=== PATIENT | male | born 1955 | race African-American/Black ===

== ENCOUNTER 2016-04-25 10:08 | Emergency (ER) | payer MEDICARE ==
[~2016-04-25] VITALS: Ht 175.3 cm; Wt 68.0 kg
[2016-04-25 10:33] VITALS: BP 171/108
[2016-04-25] MEDS ORDERED: DIPHTH,PERTUSS(ACELL),TET TOX 0.5 ML DISP.SYRIN. VAX IM ONE (11:00)
[2016-04-25] MEDS ORDERED: HYDROCODONE/APAP 5/325MG TABLET. PO ONE (11:00)
[2016-04-25] MEDS ORDERED: SULF1TAB24 PO (11:19)
[2016-04-25] MEDS ORDERED: HYDR-971 PO (11:19)
--- NOTE | 2016-04-25 11:20 | PHYS DOC ---
Past Medical History Past Medical History: A-Fib, Hypertension Additional Past Medical Histor: renal failure, ACID Past Surgical History: Other Additional Past Surgical Histo: Left knee orthoscopic, left shoulder surgery, left eye removed, Alcohol Use: None Drug Use: None Adult General Chief Complaint Chief Complaint: FOOT INJURY PAIN HPI HPI Patient is a 61 year old male with history of hypertension and A. fib who presents with right heel pain and infection after stepping on a cufflink 2 days ago without shoes on. Patient states he did remove the cufflink from the right foot. Patient denies any history of diabetes. Review of Systems Review of Systems Constitutional: Denies fever or chills [] Eyes: Denies change in visual acuity, redness, or eye pain [] Musculoskeletal: Denies back pain or joint pain [] Integument: Right heel pain Neurologic: Denies headache, focal weakness or sensory changes [] Endocrine: Denies polyuria or polydipsia [] Current Medications Current Medications Current Medications Medications (Trade) Dose Ordered Sig/Martina Start Time Stop Time Status Last Admin Dose Admin Acetaminophen/ Hydrocodone Bitart (Lortab 5/325) 1 tab 1X ONCE 04/25/16 11:00 04/25/16 11:01 UNV Diphtheria/ Tetanus/Acell Pertussis (Boostrix) 0.5 ml ONCE ONCE 04/25/16 11:00 04/25/16 11:01 UNV Physical Exam Physical Exam Constitutional: Well developed, well nourished, no acute distress, non-toxic appearance. [] Skin: Right lateral heel with the open wound approximately 2 x 2 centimeters the wound is erythematous, very tender to palpate and warm to touch Back: No tenderness, no CVA tenderness. [] Extremities: No tenderness, no cyanosis, no clubbing, ROM intact, no edema. [] Neurologic: Alert and oriented X 3, normal motor function, normal sensory function, no focal deficits noted. [] Psychologic: Affect normal, judgement normal, mood normal. [] Current Patient Data Vital Signs Vital Signs Date Time Temp Pulse Resp B/P Pulse Ox O2 Delivery O2 Flow Rate FiO2 04/25/16 10:33 98.1 83 16 171/108 92 Room Air 98.1 EKG EKG [] Radiology/Procedures Radiology/Procedures [] Course & Med Decision Making Course & Med Decision Making Pertinent Labs and Imaging studies reviewed. (See chart for details) Patient is in the ED with an infected puncture wound on the right heel after stepping on a cufflink 2 days ago. He was given tetanus in the ED and discharged with Bactrim for 10 days. Instructed to keep the area clean and dry. His BP was also elevated at 171/108 with a heart rate of 83. Patient denies any cardiac or neurological symptoms right now. He states he has history of hypertension. Recommended if he takes his blood pressure when he gets home if he is still elevated to contact his own doctor. Dragon Disclaimer Dragon Disclaimer This electronic medical record was generated, in whole or in part, using a voice recognition dictation system. Departure Departure Impression: Primary Impression: Puncture wound of right foot Additional Impressions: Right foot infection Accelerated hypertension Disposition: 01 HOME, SELF-CARE Condition: STABLE Referrals: NO PCP (PCP) Follow-up with your own doctor in 1-2 weeks. Patient Instructions: Puncture Wound, Skin Infections Additional Instructions: You were seen for infected puncture wound on the right foot. Keep the area clean and dry. Soak it in Epsom salts twice a day. Complete your antibiotics. Your blood pressure was also elevated at 171/108, retake it at home. If it is still high contact your primary care doctor. Make sure you are taking your blood pressure medicines. Follow-up with your doctor in one week. Come back to the emergency room if symptoms worsen. Scripts Sulfamethoxazole/Trimethoprim (Bactrim Ds Tablet)1 Each Tablet1 Tab PO BID #20 TAB Prov:CRISTIAN MAYNARD APRN 04/25/16 Hydrocodone/Apap 5-325 ([place] 5-325 Tablet)1 Each Tablet1-2 Tab PO Q4-6HRS #20 TAB Prov:CRISTIAN MAYNARD APRN 04/25/16 Problem Qualifiers Primary Impression: Puncture wound of right foot Encounter type: initial encounter Qualified Code: S91.331A - Puncture wound without foreign body, right foot, initial encounter CRISTIAN MAYNARD APRN Apr 25, 2016 11:20
== END 2016-04-25 11:55 | disposition home or self-care (01) ==
LOC: ER 10:08
DX: S91.331A Puncture wound without foreign body, right foot, initial encounter (principal); I48.91 Unspecified atrial fibrillation; I10 Essential (primary) hypertension; L08.9 Local infection of the skin and subcutaneous tissue, unspecified; Z95.810 Presence of automatic (implantable) cardiac defibrillator; W22.8XXA Striking against or struck by other objects, initial encounter; Y93.89 Activity, other specified; Y92.89 Other specified places as the place of occurrence of the external cause; Y99.8 Other external cause status
CPT/HCPCS: 99284

== ENCOUNTER 2016-09-21 10:40 | Inpatient (IN) | payer MEDICARE ==
[~2016-09-21] VITALS: Ht 175.3 cm; Wt 65.1 kg
[2016-09-21] VITALS (9 sets, daily range): BP systolic 93–167; BP diastolic 56–85
[~2016-09-21 10:40] MED LIST: HYDR-971 PO; SULF1TAB24 PO
[2016-09-21 11:46] LABS: BASO % 0 % (0-3); EOS % 0 % (0-3); HEMATOCRIT 36.3 % (39.0-53.0); HEMOGLOBIN 11.4 g/dL (13.0-17.5); LYMPH % 3 % (24-48); MEAN CORPUSCULAR HEMOGLOBIN 27 pg (25-35); MEAN CORPUSCULAR HGB CONC 31 g/dL (31-37); MEAN CORPUSCULAR VOLUME 87 fL (79-100); MONO % 7 % (0-9); NEUT % 89 % (31-73); PLATELET COUNT 252 x10^3/uL (140-400); RED BLOOD COUNT 4.16 x10^6/uL (4.30-5.70); RED CELL DISTRIBUTION WIDTH 15.6 % (11.5-14.5); WHITE BLOOD COUNT 30.7 x10^3/uL (4.0-11.0)
--- NOTE | 2016-09-21 11:58 | RAD ---
Indication weakness. A single view of the chest was obtained. Comparison is made to an examination almost 10 years earlier. The heart and pulmonary vessels appear unremarkable. A wire, apparently attached to a battery pack is noted in the left hemithorax. The battery pack is only partially visualized. Clinical correlation advised. Heart size is normal. The pulmonary vasculature is normal. An acute parenchymal infiltrate in the chest is not seen. There are occasional calcified left hilar lymph nodes. IMPRESSION: No acute finding apparent in the chest
[2016-09-21 12:05] LABS: CALCIUM 10.4 mg/dL (8.5-10.1); CREATININE 4.9 mg/dL (0.7-1.3); GFR 14.7; POTASSIUM 4.2 mmol/L (3.5-5.1)
[2016-09-21 12:11] LABS: ALBUMIN 2.5 g/dL (3.4-5.0); ALBUMIN/GLOBULIN RATIO 0.4 (1.0-1.7); MAGNESIUM 2.1 mg/dL (1.8-2.4); TOTAL BILIRUBIN 0.4 mg/dL (0.2-1.0); TOTAL PROTEIN 8.3 g/dL (6.4-8.2)
[2016-09-21 12:19] LABS: CKMB MASS 4.5 ng/mL (0.0-3.6); CREATINE KINASE 419 U/L (39-308)
--- NOTE | 2016-09-21 12:45 | RAD ---
Indication change in mental status. Axial noncontrast images through the head were obtained. Note is made of a previous examination 12/03/2007. The calvarium appears unremarkable. The visualized paranasal sinuses appear normal. There are multiple areas of increased density, compatible with areas of calcification, seen in the subcutaneous soft tissues. There is no subdural or epidural hematoma. There is no mass or midline shift. No hemorrhage is seen. No acute finding is apparent. IMPRESSION: No acute finding seen in the head PQRS Compliance Statement: One or more of the following individualized dose reduction techniques were utilized for this examination: 1. Automated exposure control 2. Adjustment of the mA and/or kV according to patient size 3. Use of iterative reconstruction technique
--- NOTE | 2016-09-21 13:05 | PDOC2 ---
CARDIAC CONSULT DATE OF CONSULT Date of Consult DATE: 09/21/16 TIME: 12:59 REASON FOR CONSULT Reason for Consult: elevated troponin REFERRING PHYSICIAN Referring Physician: Xiao Roger APRN SOURCE Source: Chart review HISTORY OF PRESENT ILLNESS HISTORY OF PRESENT ILLNESS 61 year old male seen in the ER after an "episode" at dialysis. Events unclear as patient without recall and no family present. Patient answers questions in one to two words after a sternal rub to arouse him. Troponin 0.6 in the setting of ESRD with Cr of 4.9 and a WBC of 30K. EKG - SR with LVH, T wave inversion laterally, biphasic P wave in multiple leads but no acute changes. Reason for Visit: elevated tropoinin PAST MEDICAL HISTORY Cardiovascular: AFIB, HTN, Other (defibrillator) Renal/: Chronic renal failure (with HD) PAST SURGICAL HISTORY Past Surgical History: Pacemaker (? - device in left lower chest), Other (left knee; left shoulder; left eye enucleation; AV fistula on right ) FAMILY HISTORY Family History: Family History Unknown SOCIAL HISTORY Social History unknown ALLERGIES ALLERGIES: Coded Allergies: No Known Drug Allergies (Unverified , 04/25/16) ROS Review of System unobtainable due to mental status PHYSICAL EXAM General: Cooperative, Other (lethargic;difficult to arouse but oriented when arouses) HEENT: Atraumatic Lungs: Other (decreased anteriorly with poor inspiration ) Heart: Normal S1, Normal S2, No murmurs, Other (tele:SR) Abdomen: Soft Extremities: No edema, Normal pulses Skin: No rashes Neuro: Other (lethargic; difficult to arouse) Psych/Mental Status: Mood NL MUSCULOSKELETAL: Osteoarthritic changes both hands VITALS VITALS Vital Signs Date Time Temp Pulse Resp B/P (MAP) Pulse Ox O2 Delivery O2 Flow Rate FiO2 09/21/16 10:57 98.2 93 18 96/58 (71) 99 Room Air 98.2 LABS Lab: Laboratory Tests Test 09/21/16 10:50 White Blood Count 30.7 x10^3/uL (4.0-11.0) Red Blood Count 4.16 x10^6/uL (4.30-5.70) Hemoglobin 11.4 g/dL (13.0-17.5) Hematocrit 36.3 % (39.0-53.0) Mean Corpuscular Volume 87 fL (79-100) Mean Corpuscular Hemoglobin 27 pg (25-35) Mean Corpuscular Hemoglobin Concent 31 g/dL (31-37) Red Cell Distribution Width 15.6 % (11.5-14.5) Platelet Count 252 x10^3/uL (140-400) Neutrophils (%) (Auto) 89 % (31-73) Lymphocytes (%) (Auto) 3 % (24-48) Monocytes (%) (Auto) 7 % (0-9) Eosinophils (%) (Auto) 0 % (0-3) Basophils (%) (Auto) 0 % (0-3) Neutrophils # (Auto) 27.5 x10^3uL (1.8-7.7) Lymphocytes # (Auto) 1.0 x10^3/uL (1.0-4.8) Monocytes # (Auto) 2.2 x10^3/uL (0.0-1.1) Eosinophils # (Auto) 0.0 x10^3/uL (0.0-0.7) Basophils # (Auto) 0.0 x10^3/uL (0.0-0.2) Sodium Level 142 mmol/L (136-145) Potassium Level 4.2 mmol/L (3.5-5.1) Chloride Level 99 mmol/L (98-107) Carbon Dioxide Level 27 mmol/L (21-32) Anion Gap 16 (6-14) Blood Urea Nitrogen 27 mg/dL (8-26) Creatinine 4.9 mg/dL (0.7-1.3) Estimated GFR (Cockcroft-Gault) 14.7 BUN/Creatinine Ratio 6 (6-20) Glucose Level 143 mg/dL (70-99) Lactic Acid Level 3.4 mmol/L (0.4-2.0) Calcium Level 10.4 mg/dL (8.5-10.1) Magnesium Level 2.1 mg/dL (1.8-2.4) Total Bilirubin 0.4 mg/dL (0.2-1.0) Aspartate Amino Transf (AST/SGOT) 33 U/L (15-37) Alanine Aminotransferase (ALT/SGPT) 16 U/L (16-63) Alkaline Phosphatase 124 U/L (46-116) Creatine Kinase 419 U/L (39-308) Creatine Kinase MB (Mass) 4.5 ng/mL (0.0-3.6) Creatine Kinase MB Relative Index 1.1 % (0-4) Troponin I Quantitative 0.620 ng/mL (0.000-0.055) XV-Pdq-[id number]-Type Natriuretic Peptide > 80722 pg/mL (0-124) Total Protein 8.3 g/dL (6.4-8.2) Albumin 2.5 g/dL (3.4-5.0) Albumin/Globulin Ratio 0.4 (1.0-1.7) IMAGES IMAGES CXR: A single view of the chest was obtained. Comparison is made to an examination almost 10 years earlier. The heart and pulmonary vessels appear unremarkable. A wire, apparently attached to a battery pack is noted in the left hemithorax. The battery pack is only partially visualized. Clinical correlation advised. Heart size is normal. The pulmonary vasculature is normal. An acute parenchymal infiltrate in the chest is not seen. There are occasional calcified left hilar lymph nodes. IMPRESSION: No acute finding apparent in the chest CT head: Axial noncontrast images through the head were obtained. Note is made of a previous examination 12/03/2007. The calvarium appears unremarkable. The visualized paranasal sinuses appear normal. There are multiple areas of increased density, compatible with areas of calcification, seen in the subcutaneous soft tissues. There is no subdural or epidural hematoma. There is no mass or midline shift. No hemorrhage is seen. No acute finding is apparent. IMPRESSION: No acute finding seen in the head EKG EKG EKG - SR with LVH, T wave inversion laterally, biphasic P wave in multiple leads but no acute changes. ASSESSMENT/PLAN ASSESSMENT/PLAN 1. sepsis WBC ~ 30K per primary service and ID 2. NSTEMI, type II in the setting of sepsis and ESRD - continue serial markers no acute changes in EKG presumed previous care @ [facility] - records requested echo to evaluate LVEF and assess for valvular disease 3. device in left lateral hemithorax ? -- not with usual appearance of ICD or PPM records requested from [facility] 4. hypotension may need vasopressors 5. ESRD with HD per nephrology 6. mental status changes ? sepsis related Problems: ABIOLA YADAV APRN September 21, 2016 13:05
--- NOTE | 2016-09-21 13:56 | EKG ---
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
--- NOTE | 2016-09-21 14:55 | RAD ---
Indication scrotal pain. Grayscale color Doppler and spectral imaging was performed. Examination was targeted to the scrotum. The right testicle measures approximately 3.5 x 2.4 x 1.8 cm. No mass is seen. No definite arterial flow is seen in the testicle. Some minimal venous flow was seen. No definite epididymal mass was seen although there was diminished flow to the epididymis similar to the testicle. There was a right varicocele. There was no significant hydrocele. The left testicle measures 3.3 x 2.5 x 2 cm and, similar to the contralateral right testicle shows no significant arterial flow with only minimal venous flow. No mass is seen. The epididymis does not appear enlarged but similar to the testicle itself demonstrated very little flow. IMPRESSION: Significantly diminished blood flow to both testicles. This likely reflects a systemic process. Clinical correlation advised. Right varicocele
[2016-09-21] MEDS ORDERED: ONDANSETRON PF 4 MG/2 ML VIAL. IV PRN ×2 (15:00→16:52)
[2016-09-21] MEDS ORDERED: MORPHINE SULFATE 2 MG/ML DISP.SYRIN. IV PRN (15:00)
[2016-09-21 15:02] LABS: PLT ESTIMATE ADEQUATE (ADEQUATE)
[2016-09-21 15:04] LABS: ANISOCYTOSIS SLIGHT; POIKILOCYTOSIS SLIGHT; POLYCHROMASIA SLIGHT; TARGET CELLS FEW
--- NOTE | 2016-09-21 15:53 | PHYS DOC ---
Past Medical History Past Medical History: A-Fib, Hypertension Additional Past Medical Histor: renal failure, ACID Past Surgical History: No Surgical History, Other Additional Past Surgical Histo: Left knee orthoscopic, left shoulder surgery, left eye removed, Alcohol Use: None Drug Use: None Adult General Chief Complaint Chief Complaint: DIALYSIS PROBLEM HPI HPI Patient is a 61 year old male with history of hypertension and A. fib who presents today from dialysis. Patient is a very poor historian. He states he had "an episode" in dialysis. Patient would not describe this episode. He is complaining of penile wound and pain that he has had for a couple days. Patient denies any fever. Denies any chest pain or shortness of breath. He is alert and oriented 3. Review of Systems Review of Systems Constitutional: Denies fever or chills [] Eyes: Denies change in visual acuity, redness, or eye pain [] HENT: Denies nasal congestion or sore throat [] Respiratory: Denies cough or shortness of breath [] Cardiovascular: No additional information not addressed in HPI [] GI: Denies abdominal pain, nausea, vomiting, bloody stools or diarrhea [] : Penile wound Musculoskeletal: Denies back pain or joint pain [] Integument: Denies rash or skin lesions [] Neurologic: Denies headache, focal weakness or sensory changes [] Endocrine: Denies polyuria or polydipsia [] Allergies Allergies Allergies Coded Allergies Type Severity Reaction Last Updated Verified No Known Drug Allergies 04/25/16 No Physical Exam Physical Exam Constitutional: Well developed, well nourished, no acute distress, non-toxic appearance. [] HENT: Normocephalic, atraumatic, bilateral external ears normal, oropharynx moist, no oral exudates, nose normal. [] Eyes: PERRLA, EOMI, conjunctiva normal, no discharge. [] Neck: Normal range of motion, no tenderness, supple, no stridor. [] Cardiovascular:Heart rate regular rhythm, no murmur [] Lungs & Thorax: Bilateral breath sounds clear to auscultation [] Abdomen: Bowel sounds normal, soft, no tenderness, no masses, no pulsatile masses. [] Skin: Warm, dry, no erythema, no rash. [] penile exam was difficult because patient is guarding it. Penile shaft appears to have non draining wound. Back: No tenderness, no CVA tenderness. [] Extremities: No tenderness, no cyanosis, no clubbing, ROM intact, no edema. [] Neurologic: Alert and oriented X 3, normal motor function, normal sensory function, no focal deficits noted. [] Psychologic: Affect normal, judgement normal, mood normal. [] Current Patient Data Vital Signs Vital Signs Date Time Temp Pulse Resp B/P (MAP) Pulse Ox O2 Delivery O2 Flow Rate FiO2 09/21/16 13:29 97 19 91/39 (56) 100 Room Air 09/21/16 10:57 98.2 98.2 Lab Values Laboratory Tests Test 09/21/16 10:50 White Blood Count 30.7 x10^3/uL (4.0-11.0) H Red Blood Count 4.16 x10^6/uL (4.30-5.70) L Hemoglobin 11.4 g/dL (13.0-17.5) L Hematocrit 36.3 % (39.0-53.0) L Mean Corpuscular Volume 87 fL (79-100) Mean Corpuscular Hemoglobin 27 pg (25-35) Mean Corpuscular Hemoglobin Concent 31 g/dL (31-37) Red Cell Distribution Width 15.6 % (11.5-14.5) H Platelet Count 252 x10^3/uL (140-400) Neutrophils (%) (Auto) 89 % (31-73) H Lymphocytes (%) (Auto) 3 % (24-48) L Monocytes (%) (Auto) 7 % (0-9) Eosinophils (%) (Auto) 0 % (0-3) Basophils (%) (Auto) 0 % (0-3) Neutrophils # (Auto) 27.5 x10^3uL (1.8-7.7) H Lymphocytes # (Auto) 1.0 x10^3/uL (1.0-4.8) Monocytes # (Auto) 2.2 x10^3/uL (0.0-1.1) H Eosinophils # (Auto) 0.0 x10^3/uL (0.0-0.7) Basophils # (Auto) 0.0 x10^3/uL (0.0-0.2) Segmented Neutrophils % 84 % (35-66) H Band Neutrophils % 9 % (0-9) Monocytes % 7 % (0-10) Platelet Estimate Adequate (ADEQUATE) Polychromasia Slight Poikilocytosis Slight Anisocytosis Slight Target Cells Few Sodium Level 142 mmol/L (136-145) Potassium Level 4.2 mmol/L (3.5-5.1) Chloride Level 99 mmol/L (98-107) Carbon Dioxide Level 27 mmol/L (21-32) Anion Gap 16 (6-14) H Blood Urea Nitrogen 27 mg/dL (8-26) H Creatinine 4.9 mg/dL (0.7-1.3) H Estimated GFR (Cockcroft-Gault) 14.7 BUN/Creatinine Ratio 6 (6-20) Glucose Level 143 mg/dL (70-99) H Lactic Acid Level 3.4 mmol/L (0.4-2.0) H Calcium Level 10.4 mg/dL (8.5-10.1) H Magnesium Level 2.1 mg/dL (1.8-2.4) Total Bilirubin 0.4 mg/dL (0.2-1.0) Aspartate Amino Transferase (AST) 33 U/L (15-37) Alanine Aminotransferase (ALT) 16 U/L (16-63) Alkaline Phosphatase 124 U/L (46-116) H Creatine Kinase 419 U/L (39-308) H Creatine Kinase MB (Mass) 4.5 ng/mL (0.0-3.6) H Creatine Kinase MB Relative Index 1.1 % (0-4) Troponin I Quantitative 0.620 ng/mL (0.000-0.055) NV-Wir-B-Type Natriuretic Peptide > 20136 pg/mL (0-124) H Total Protein 8.3 g/dL (6.4-8.2) H Albumin 2.5 g/dL (3.4-5.0) L Albumin/Globulin Ratio 0.4 (1.0-1.7) L Thyroid Stimulating Hormone (TSH) 1.281 uIU/mL (0.358-3.74) Laboratory Tests 09/21/16 10:50 Laboratory Tests 09/21/16 10:50 EKG EKG [] Radiology/Procedures Radiology/Procedures [] Course & Med Decision Making Course & Med Decision Making Pertinent Labs and Imaging studies reviewed. (See chart for details) This is a 61-year-old male patient who presents today from dialysis for having "an episode". Patient would not describe this episode. Patient is an alert and oriented. He is complaining of pain in the wound. On exam he does have a penile wound. Chest x-ray and CT of the head are negative for any acute findings. EKG interpreted by Dr. Geiger sinus rhythm, inverted T waves in lead V5, heart rate 89 CBC with a WBC of 30.1 no bands, CMP with creatinine of 4.9, BUN 27, lactic acid 3.4, troponin 0.620. We could not start patient on IV fluids for sepsis protocol because he has renal failure, blood cultures were ordered as well as prolactin. We will let renal decided on IV fluids Patient is afebrile. Consulted with Mora Donaldson's PA who came to the ED to see patient. Consulted with Dr. Haney who accepted patient for admission who requested we consult Amanda and start him on antibiotics. Cipro was ordered. Consult was placed for Dr. Patel to see patient Consult placed for nephrology Dragon Disclaimer Dragon Disclaimer This electronic medical record was generated, in whole or in part, using a voice recognition dictation system. Departure Departure Impression: Primary Impression: Sepsis Additional Impressions: Acute electrocardiogram changes Open wound of penis Disposition: ADMITTED INPATIENT Admitting Physician: Lena Haney Condition: STABLE Referrals: NO PCP (PCP) Problem Qualifiers Primary Impression: Sepsis Sepsis type: sepsis due to unspecified organism Qualified Codes: A41.9 - Sepsis, unspecified organism Additional Impressions: Open wound of penis Encounter type: initial encounter Qualified Codes: S31.20XA - Unspecified open wound of penis, initial encounter CRISTIAN MAYNARD BOSTON CUTTER September 21, 2016 15:53
[2016-09-21] MEDS ORDERED: MAGNESIUM SULFATE 2GM 50 ML IV PRN (16:00)
--- NOTE | 2016-09-21 16:06 | PDOC2 ---
CONSULT Date of Consult Date of Consult DATE: 09/21/16 TIME: 15:59 Reason for Consult Reason for Consult: ESRD Referring Physician Referring Physician: Dr Epstein Identification/Chief Complaint Chief Complaint Hypotension Problems: Source Source: Chart review, Patient History of Present Illness Reason for Visit: as dictated Past Medical History Cardiovascular: AFIB, HTN, Other (defibrillator) Renal/: Chronic renal failure (with HD) Past Surgical History Past Surgical History: Pacemaker (? - device in left lower chest), Other (left knee; left shoulder; left eye enucleation; AV fistula on right ) Family History Family History: Family History Unknown Social History Lives: Alone Current Problem List Problem List Problems Medical Problems: (1) Sepsis Status: Acute Current Medications Current Medications Current Medications Ondansetron HCl (Zofran) 4 mg PRN Q8HRS PRN IV NAUSEA/VOMITING; Start 09/21/16 at 15:00; Stop 09/22/16 at 14:59 Morphine Sulfate 2 mg PRN Q2HR PRN IV PAIN; Start 09/21/16 at 15:00; Stop at 14:59 Ciprofloxacin Lactate 200 ml @ 200 mls/hr Q24H IV ; Start 09/21/16 at 15:00 Active Scripts Active Bactrim Ds Tablet (Sulfamethoxazole/Trimethoprim) 1 Each Tablet 1 Tab PO BID [place] 5-325 Tablet (Acetaminophen/Hydrocodone Bitart) 1 Each Tablet 1-2 Tab PO Q4-6HRS Allergies Allergies: Coded Allergies: No Known Drug Allergies (Unverified , 04/25/16) ROS Review of System does not answer Qs reliably Physical Exam Physical Exam General Appearance: Awake but not fully Alert Oriented x 0-1 In no Distress Eyes: Conjunctiva Normal; LEft eye prosthetic, EN: No EN Drainage Mucous Memb. dryish Neck: no JVD min JVP Supple no Thyromegaly CVS: S1 S2 + Murmur No Gallop No Rub no Edema Resp: no Rales no Rhonchi no Acc. Muscle use GI: BAS +ve NO Bruit Non Tender Non Distended : no CVA tenderness; no Suprapubic Tenderness SKIN: no Rashes Breast Exam deferred; ? Eschar at tip of penis Mu.Sk: Adequate ROM + Muscle Atrophy Heme: Unable to palpate Obvious LAD no palp Splenomegaly NEURO: dec Strength damien in lower ext vs Cranial Nerves unable to be assessed due to lack of co-operation Psych: ? Depressed no Active hallucination Vital Signs Vital Signs Date Time Temp Pulse Resp B/P (MAP) Pulse Ox O2 Delivery O2 Flow Rate FiO2 09/21/16 13:29 97 19 91/39 (56) 100 Room Air 09/21/16 10:57 98.2 98.2 Assessment & Plan ESRD: Current FLuid and E-lyte status does not necessitate emergent need for Dialysis. Will re-evaluate for Dialysis in am and continue on MWF schedule. Anemia: no Epogen ordere for hgb > 11 Transfuse with next HD as needed. HypoTN OA: Current BP meds reviewed. See orders for changes. Currently Normotensive; May need IVF bolus prn; ECHO Pending Bone & Mineral: follopw phos and reassess need to change binder regimen ^ed Steve - suspect due to recent HD ? Sepsis +/- shock - IVF as needed ^ed lactic Acid - IVF prn then Pressors Discussed Plan of Care and prognosis etc. at length with family. Labs Labs Laboratory Tests Test 09/21/16 10:50 White Blood Count 30.7 x10^3/uL (4.0-11.0) Red Blood Count 4.16 x10^6/uL (4.30-5.70) Hemoglobin 11.4 g/dL (13.0-17.5) Hematocrit 36.3 % (39.0-53.0) Mean Corpuscular Volume 87 fL (79-100) Mean Corpuscular Hemoglobin 27 pg (25-35) Mean Corpuscular Hemoglobin Concent 31 g/dL (31-37) Red Cell Distribution Width 15.6 % (11.5-14.5) Platelet Count 252 x10^3/uL (140-400) Neutrophils (%) (Auto) 89 % (31-73) Lymphocytes (%) (Auto) 3 % (24-48) Monocytes (%) (Auto) 7 % (0-9) Eosinophils (%) (Auto) 0 % (0-3) Basophils (%) (Auto) 0 % (0-3) Neutrophils # (Auto) 27.5 x10^3uL (1.8-7.7) Lymphocytes # (Auto) 1.0 x10^3/uL (1.0-4.8) Monocytes # (Auto) 2.2 x10^3/uL (0.0-1.1) Eosinophils # (Auto) 0.0 x10^3/uL (0.0-0.7) Basophils # (Auto) 0.0 x10^3/uL (0.0-0.2) Segmented Neutrophils % 84 % (35-66) Band Neutrophils % 9 % (0-9) Monocytes % 7 % (0-10) Platelet Estimate Adequate (ADEQUATE) Polychromasia Slight Poikilocytosis Slight Anisocytosis Slight Target Cells Few Sodium Level 142 mmol/L (136-145) Potassium Level 4.2 mmol/L (3.5-5.1) Chloride Level 99 mmol/L (98-107) Carbon Dioxide Level 27 mmol/L (21-32) Anion Gap 16 (6-14) Blood Urea Nitrogen 27 mg/dL (8-26) Creatinine 4.9 mg/dL (0.7-1.3) Estimated GFR (Cockcroft-Gault) 14.7 BUN/Creatinine Ratio 6 (6-20) Glucose Level 143 mg/dL (70-99) Lactic Acid Level 3.4 mmol/L (0.4-2.0) Calcium Level 10.4 mg/dL (8.5-10.1) Magnesium Level 2.1 mg/dL (1.8-2.4) Total Bilirubin 0.4 mg/dL (0.2-1.0) Aspartate Amino Transf (AST/SGOT) 33 U/L (15-37) Alanine Aminotransferase (ALT/SGPT) 16 U/L (16-63) Alkaline Phosphatase 124 U/L (46-116) Creatine Kinase 419 U/L (39-308) Creatine Kinase MB (Mass) 4.5 ng/mL (0.0-3.6) Creatine Kinase MB Relative Index 1.1 % (0-4) Troponin I Quantitative 0.620 ng/mL (0.000-0.055) GG-Rmp-R-Type Natriuretic Peptide > 83365 pg/mL (0-124) Total Protein 8.3 g/dL (6.4-8.2) Albumin 2.5 g/dL (3.4-5.0) Albumin/Globulin Ratio 0.4 (1.0-1.7) Laboratory Tests Test 09/21/16 10:50 White Blood Count 30.7 x10^3/uL (4.0-11.0) Red Blood Count 4.16 x10^6/uL (4.30-5.70) Hemoglobin 11.4 g/dL (13.0-17.5) Hematocrit 36.3 % (39.0-53.0) Mean Corpuscular Volume 87 fL (79-100) Mean Corpuscular Hemoglobin 27 pg (25-35) Mean Corpuscular Hemoglobin Concent 31 g/dL (31-37) Red Cell Distribution Width 15.6 % (11.5-14.5) Platelet Count 252 x10^3/uL (140-400) Neutrophils (%) (Auto) 89 % (31-73) Lymphocytes (%) (Auto) 3 % (24-48) Monocytes (%) (Auto) 7 % (0-9) Eosinophils (%) (Auto) 0 % (0-3) Basophils (%) (Auto) 0 % (0-3) Neutrophils # (Auto) 27.5 x10^3uL (1.8-7.7) Lymphocytes # (Auto) 1.0 x10^3/uL (1.0-4.8) Monocytes # (Auto) 2.2 x10^3/uL (0.0-1.1) Eosinophils # (Auto) 0.0 x10^3/uL (0.0-0.7) Basophils # (Auto) 0.0 x10^3/uL (0.0-0.2) Segmented Neutrophils % 84 % (35-66) Band Neutrophils % 9 % (0-9) Monocytes % 7 % (0-10) Platelet Estimate Adequate (ADEQUATE) Polychromasia Slight Poikilocytosis Slight Anisocytosis Slight Target Cells Few Sodium Level 142 mmol/L (136-145) Potassium Level 4.2 mmol/L (3.5-5.1) Chloride Level 99 mmol/L (98-107) Carbon Dioxide Level 27 mmol/L (21-32) Anion Gap 16 (6-14) Blood Urea Nitrogen 27 mg/dL (8-26) Creatinine 4.9 mg/dL (0.7-1.3) Estimated GFR (Cockcroft-Gault) 14.7 BUN/Creatinine Ratio 6 (6-20) Glucose Level 143 mg/dL (70-99) Lactic Acid Level 3.4 mmol/L (0.4-2.0) Calcium Level 10.4 mg/dL (8.5-10.1) Magnesium Level 2.1 mg/dL (1.8-2.4) Total Bilirubin 0.4 mg/dL (0.2-1.0) Aspartate Amino Transf (AST/SGOT) 33 U/L (15-37) Alanine Aminotransferase (ALT/SGPT) 16 U/L (16-63) Alkaline Phosphatase 124 U/L (46-116) Creatine Kinase 419 U/L (39-308) Creatine Kinase MB (Mass) 4.5 ng/mL (0.0-3.6) Creatine Kinase MB Relative Index 1.1 % (0-4) Troponin I Quantitative 0.620 ng/mL (0.000-0.055) TV-Iru-P-Type Natriuretic Peptide > 71877 pg/mL (0-124) Total Protein 8.3 g/dL (6.4-8.2) Albumin 2.5 g/dL (3.4-5.0) Albumin/Globulin Ratio 0.4 (1.0-1.7) Images Images IMPRESSION: Significantly diminished blood flow to both testicles. This likely reflects a systemic process. Clinical correlation advised. Right varicocele SHELLY ESTEBAN MD September 21, 2016 16:06
--- NOTE | 2016-09-21 16:42 | CARD ---
APPROVED REPORT EXAM: Two-dimensional and M-mode echocardiogram with Doppler and color Doppler. Other Information Quality : GoodHR: 88bpm INDICATION NSTEMI 2D DIMENSIONS RVDd2.4 (2.9-3.5cm)Left Atrium(2D)3.2 (1.6-4.0cm) IVSd1.5 (0.7-1.1cm)Aortic Root(2D)3.2 (2.0-3.7cm) LVDd4.2 (3.9-5.9cm)LVOT Diameter2.3 (1.8-2.4cm) PWd1.5 (0.7-1.1cm)LVDs2.7 (2.5-4.0cm) FS (%) 34.9 %SV49.9 ml Aortic Valve AoV Peak Gabriel.193.4cm/sAoV VTI38.9cm AO Peak GR.15.0mmHgLVOT Peak Gabriel.61.9cm/s AO Mean GR.8mmHgAVA (VMAX)1.29cm2 Mitral Valve MV E Peak Gr.7mmHgMV E Mean Gr.3mmHg Pulmonary Valve PV Peak Vzbuilhk86.4cm/s Tricuspid Valve TR P. Lhcmspiy186sv/sTR Peak Gr.54mmHg Pulmonary Vein S1 Dxbokmon27.8cm/sD2 Mhslkffe58.5cm/s PVa [id number] LEFT VENTRICLE The left ventricle is normal size. There is mild to moderate concentric left ventricular hypertrophy. Left ventricle systolic function is low normal. The Ejection Fraction is estimated at 50%. Pulmonary venous flow is consistent with stage II diastolic dysfunction. No left ventricle thrombus noted on t his study. RIGHT VENTRICLE The right ventricle is normal size. There is normal right ventricular wall thickness. The right ventr icular systolic function is normal. ATRIA The left atrium is mildly dilated. The right atrium size is normal. The interatrial septum is intact with no evidence for an atrial septal defect or patent foramen ovale as noted on 2-D or Doppler imagi ng. AORTIC VALVE The aortic valve is mildly The aortic valve is trileaflet. Doppler and Color Flow revealed no signifi cant aortic regurgitation. There is no significant aortic valvular stenosis. MITRAL VALVE Mitral annular calcification is moderate. The mitral valve leaflets are calcified. There is no eviden ce of mitral valve prolapse. There is no mitral valve stenosis. Doppler and Color Flow revealed trace mitral regurgitation. TRICUSPID VALVE Doppler and Color Flow revealed moderate tricuspid regurgitation. The pulmonary artery systolic press ure is estimated at 50 mmHg. There is moderate pulmonary hypertension. PULMONIC VALVE Doppler and Color Flow revealed no pulmonic valvular regurgitation. There is no pulmonic valvular vishnu nosis. GREAT VESSELS The aortic root is normal in size. The ascending aorta is normal in size. The pulmonary artery is nor mal. The IVC is normal in size and collapses >50% with inspiration. PERICARDIAL EFFUSION There is no evidence of significant pericardial effusion. Critical Notification Critical Value: No <Conclusion> The left ventricle is normal size. Left ventricle systolic function is low normal. The Ejection Fraction is estimated at 50%. There is mild to moderate concentric left ventricular hypertrophy. There is no significant aortic valvular stenosis. Doppler and Color Flow revealed no significant aortic regurgitation. Doppler and Color Flow revealed trace mitral regurgitation. Doppler and Color Flow revealed moderate tricuspid regurgitation. The pulmonary artery systolic pressure is estimated at 50 mmHg. There is moderate pulmonary hypertension.
[2016-09-21] MEDS ORDERED: HYDROcodone/APAP 5/325MG 1 TAB TABLET PO PRN (17:00)
[2016-09-21] MEDS ORDERED: ACETAMINOPHEN 325 MG TABLET. PO PRN (17:00)
--- NOTE | 2016-09-21 17:02 | PDOC1 ---
History and Physical Date of Admission Date of Admission DATE: 09/21/16 TIME: 16:55 Identification/Chief Complaint Chief Complaint syncope while in HD Problems: Source Source: Caregiver, Chart review History of Present Illness History of Present Illness 61 y.o AA male, no family at bedside, cannot provide a hx to me today, BUt admitted bec of sepsis with hypotension Syncopized apparently in HD, further details scant. LAbs show WBC 30, no fevers hgb 11, platelets ok, BNP 35K, has a wound on penis that is very tender to inspect and that is mostly the most response I got from him, VS: BP lowish side, Trop 0.6 in the background of ESRD, CRea 4.9, K ok, bicarb ok. EKG I have personally reviewed shows inverted T waves, lactate 3.4. I did ask ER mid level provider to check scrotal sono since pt very tender there and possibly involve urology Past Medical History Cardiovascular: AFIB, HTN, Other (defibrillator) Renal/: Chronic renal failure (with HD) Past Surgical History Past Surgical History: Pacemaker (? - device in left lower chest), Other (left knee; left shoulder; left eye enucleation; AV fistula on right ) Family History Family History: Family History Unknown Social History Smoke: No ALCOHOL: none Drugs: None Current Problem List Problem List Problems Medical Problems: (1) Acute electrocardiogram changes Status: Acute (2) Open wound of penis Status: Acute (3) Sepsis Status: Acute Problems: Current Medications Current Medications Current Medications Ondansetron HCl (Zofran) 4 mg PRN Q8HRS PRN IV NAUSEA/VOMITING; Start 09/21/16 at 15:00; Stop 09/22/16 at 14:59 Morphine Sulfate 2 mg PRN Q2HR PRN IV PAIN; Start 09/21/16 at 15:00; Stop at 14:59 Ciprofloxacin Lactate 200 ml @ 200 mls/hr Q24H IV ; Start 09/21/16 at 15:00 Magnesium Sulfate/ Dextrose 50 ml @ 25 mls/hr PRN DAILY PRN IV for Mag < 1.7 on am labs; Start 09/21/16 at 16:00 Sodium Chloride 500 ml @ 0 mls/hr QID PRN IV map < 65; Start 09/21/16 at 16:15 Active Scripts Active Bactrim Ds Tablet (Sulfamethoxazole/Trimethoprim) 1 Each Tablet 1 Tab PO BID [place] 5-325 Tablet (Acetaminophen/Hydrocodone Bitart) 1 Each Tablet 1-2 Tab PO Q4-6HRS Allergies Allergies: Coded Allergies: No Known Drug Allergies (Unverified , 04/25/16) ROS Review of System unable to obtain, minimally cooperative Physical Exam General: No acute distress HEENT: Atraumatic, PERRLA, EOMI, Mucous membr. moist/pink Lungs: Clear to auscultation, Normal air movement Heart: S1S2, RRR, no thrills, no rubs, no gallops Cardiovascular: S1, S2 Breasts: Normal, Rt breast nml w/o mass, Lt breast nml w/o mass, Nipples normal Abdomen: Normal bowel sounds, Soft, No tenderness, No hepatosplenomegaly, No masses Male Genitals Exam: normal genitalia, normal prostate PELVIC: Nml ext genitalia Extremities: Other (R AV fistula with palpable bruit, good pulses peripherally) Skin: No rashes, No breakdown, No significant lesion Psych/Mental Status: Mental status NL Vitals Vitals Vital Signs Date Time Temp Pulse Resp B/P (MAP) Pulse Ox O2 Delivery O2 Flow Rate FiO2 09/21/16 13:29 97 19 91/39 (56) 100 Room Air 09/21/16 10:57 98.2 98.2 Labs Labs Laboratory Tests Test 09/21/16 10:50 White Blood Count 30.7 x10^3/uL (4.0-11.0) Red Blood Count 4.16 x10^6/uL (4.30-5.70) Hemoglobin 11.4 g/dL (13.0-17.5) Hematocrit 36.3 % (39.0-53.0) Mean Corpuscular Volume 87 fL (79-100) Mean Corpuscular Hemoglobin 27 pg (25-35) Mean Corpuscular Hemoglobin Concent 31 g/dL (31-37) Red Cell Distribution Width 15.6 % (11.5-14.5) Platelet Count 252 x10^3/uL (140-400) Neutrophils (%) (Auto) 89 % (31-73) Lymphocytes (%) (Auto) 3 % (24-48) Monocytes (%) (Auto) 7 % (0-9) Eosinophils (%) (Auto) 0 % (0-3) Basophils (%) (Auto) 0 % (0-3) Neutrophils # (Auto) 27.5 x10^3uL (1.8-7.7) Lymphocytes # (Auto) 1.0 x10^3/uL (1.0-4.8) Monocytes # (Auto) 2.2 x10^3/uL (0.0-1.1) Eosinophils # (Auto) 0.0 x10^3/uL (0.0-0.7) Basophils # (Auto) 0.0 x10^3/uL (0.0-0.2) Segmented Neutrophils % 84 % (35-66) Band Neutrophils % 9 % (0-9) Monocytes % 7 % (0-10) Platelet Estimate Adequate (ADEQUATE) Polychromasia Slight Poikilocytosis Slight Anisocytosis Slight Target Cells Few Sodium Level 142 mmol/L (136-145) Potassium Level 4.2 mmol/L (3.5-5.1) Chloride Level 99 mmol/L (98-107) Carbon Dioxide Level 27 mmol/L (21-32) Anion Gap 16 (6-14) Blood Urea Nitrogen 27 mg/dL (8-26) Creatinine 4.9 mg/dL (0.7-1.3) Estimated GFR (Cockcroft-Gault) 14.7 BUN/Creatinine Ratio 6 (6-20) Glucose Level 143 mg/dL (70-99) Lactic Acid Level 3.4 mmol/L (0.4-2.0) Calcium Level 10.4 mg/dL (8.5-10.1) Magnesium Level 2.1 mg/dL (1.8-2.4) Total Bilirubin 0.4 mg/dL (0.2-1.0) Aspartate Amino Transf (AST/SGOT) 33 U/L (15-37) Alanine Aminotransferase (ALT/SGPT) 16 U/L (16-63) Alkaline Phosphatase 124 U/L (46-116) Creatine Kinase 419 U/L (39-308) Creatine Kinase MB (Mass) 4.5 ng/mL (0.0-3.6) Creatine Kinase MB Relative Index 1.1 % (0-4) Troponin I Quantitative 0.620 ng/mL (0.000-0.055) TP-Nnq-G-Type Natriuretic Peptide > 62284 pg/mL (0-124) Total Protein 8.3 g/dL (6.4-8.2) Albumin 2.5 g/dL (3.4-5.0) Albumin/Globulin Ratio 0.4 (1.0-1.7) Thyroid Stimulating Hormone (TSH) 1.281 uIU/mL (0.358-3.74) Laboratory Tests Test 09/21/16 10:50 White Blood Count 30.7 x10^3/uL (4.0-11.0) Red Blood Count 4.16 x10^6/uL (4.30-5.70) Hemoglobin 11.4 g/dL (13.0-17.5) Hematocrit 36.3 % (39.0-53.0) Mean Corpuscular Volume 87 fL (79-100) Mean Corpuscular Hemoglobin 27 pg (25-35) Mean Corpuscular Hemoglobin Concent 31 g/dL (31-37) Red Cell Distribution Width 15.6 % (11.5-14.5) Platelet Count 252 x10^3/uL (140-400) Neutrophils (%) (Auto) 89 % (31-73) Lymphocytes (%) (Auto) 3 % (24-48) Monocytes (%) (Auto) 7 % (0-9) Eosinophils (%) (Auto) 0 % (0-3) Basophils (%) (Auto) 0 % (0-3) Neutrophils # (Auto) 27.5 x10^3uL (1.8-7.7) Lymphocytes # (Auto) 1.0 x10^3/uL (1.0-4.8) Monocytes # (Auto) 2.2 x10^3/uL (0.0-1.1) Eosinophils # (Auto) 0.0 x10^3/uL (0.0-0.7) Basophils # (Auto) 0.0 x10^3/uL (0.0-0.2) Segmented Neutrophils % 84 % (35-66) Band Neutrophils % 9 % (0-9) Monocytes % 7 % (0-10) Platelet Estimate Adequate (ADEQUATE) Polychromasia Slight Poikilocytosis Slight Anisocytosis Slight Target Cells Few Sodium Level 142 mmol/L (136-145) Potassium Level 4.2 mmol/L (3.5-5.1) Chloride Level 99 mmol/L (98-107) Carbon Dioxide Level 27 mmol/L (21-32) Anion Gap 16 (6-14) Blood Urea Nitrogen 27 mg/dL (8-26) Creatinine 4.9 mg/dL (0.7-1.3) Estimated GFR (Cockcroft-Gault) 14.7 BUN/Creatinine Ratio 6 (6-20) Glucose Level 143 mg/dL (70-99) Lactic Acid Level 3.4 mmol/L (0.4-2.0) Calcium Level 10.4 mg/dL (8.5-10.1) Magnesium Level 2.1 mg/dL (1.8-2.4) Total Bilirubin 0.4 mg/dL (0.2-1.0) Aspartate Amino Transf (AST/SGOT) 33 U/L (15-37) Alanine Aminotransferase (ALT/SGPT) 16 U/L (16-63) Alkaline Phosphatase 124 U/L (46-116) Creatine Kinase 419 U/L (39-308) Creatine Kinase MB (Mass) 4.5 ng/mL (0.0-3.6) Creatine Kinase MB Relative Index 1.1 % (0-4) Troponin I Quantitative 0.620 ng/mL (0.000-0.055) WC-Klw-X-Type Natriuretic Peptide > 51979 pg/mL (0-124) Total Protein 8.3 g/dL (6.4-8.2) Albumin 2.5 g/dL (3.4-5.0) Albumin/Globulin Ratio 0.4 (1.0-1.7) Thyroid Stimulating Hormone (TSH) 1.281 uIU/mL (0.358-3.74) VTE Prophylaxis Ordered VTE Prophylaxis Devices: Yes VTE Pharmacological Prophylaxi: Yes Assessment/Plan Assessment/Plan 1. Syncope while inb HD 2. Hypotension associated with HD 3. Sepsis with hypotension 4. ESDR On HD 5. Trop elevation in tehbackground of sepsis and ESRD 6. Anemia of CKD 7. Elevated lactate 8. Acute encephalopathy sec to above 9. HYpercalcemia 10. MOd pCM 11. Elevated BNP 12. Penile wound 13. 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
[2016-09-21] MEDS ORDERED: NOREPINEPHRIN PREMIX 250 ML IV PRN (17:45)
[2016-09-21] MEDS: VANCOMYCIN PER PHARMACY MC PRN (17:52)
[2016-09-21] MEDS: CIPROFLOXACIN 400MG PREMIX 200 ML IV SCH (17:54)
[2016-09-21] MEDS ORDERED: VANCOMYCIN 1.5 GM in IV NORMAL SALINE 500ML BAG 500 ML IV ONE (19:00)
[2016-09-21] MEDS: PIPERACILLIN/TAZOBACTAM 2.25 GM in IV NORMAL SALINE 50ML 50 ML IV SCH (20:17)
[2016-09-21 21:19] LABS: HCO3 ABG 25 mmol/L (21-28); PCO2 ABG 45 mmHg (35-46); PH ABG 7.36 (7.35-7.45); PO2 ABG 90 mmHg (65-108); SAT O2 ABG 96 % (92-99)
[2016-09-21 21:29] LABS: FIO2 ABG 28
[2016-09-22] VITALS (24 sets, daily range): BP systolic 69–154; BP diastolic 46–79
[2016-09-22] MEDS: MICAFUNGIN 100 MG in IV DEXTROSE 5% 100 ML IV SCH ×2 (00:01→21:18)
[2016-09-22] MEDS ORDERED: LABETALOL 20 MG/4 ML DISP.SYRIN. IVP PRN (00:30)
[2016-09-22] MEDS ORDERED: ACETAMINOPHEN 650 MG SUPP.RECT. PR PRN (00:30)
[2016-09-22 05:11] LABS: BASO # 0.1 x10^3/uL (0.0-0.2); BASO % 0 % (0-3); EOS % 0 % (0-3); HEMATOCRIT 35.3 % (39.0-53.0); LYMPH # 0.8 x10^3/uL (1.0-4.8); LYMPH % 3 % (24-48); MEAN CORPUSCULAR HEMOGLOBIN 27 pg (25-35); MEAN CORPUSCULAR HGB CONC 31 g/dL (31-37); MEAN CORPUSCULAR VOLUME 88 fL (79-100); MONO % 5 % (0-9); NEUT % 92 % (31-73); PLATELET COUNT 226 x10^3/uL (140-400); RED BLOOD COUNT 4.01 x10^6/uL (4.30-5.70); RED CELL DISTRIBUTION WIDTH 15.7 % (11.5-14.5); WHITE BLOOD COUNT 25.2 x10^3/uL (4.0-11.0)
[2016-09-22 05:37] LABS: ALBUMIN 2.3 g/dL (3.4-5.0); CALCIUM 10.3 mg/dL (8.5-10.1); CREATININE 5.8 mg/dL (0.7-1.3); GFR 12.1; POTASSIUM 4.4 mmol/L (3.5-5.1)
[2016-09-22] MEDS: IV NORMAL SALINE 500ML BAG 500 ML IV PRN (06:13)
[2016-09-22] MEDS: PIPERACILLIN/TAZOBACTAM 2.25 GM in IV NORMAL SALINE 50ML 50 ML IV SCH ×3 (06:18→22:28)
[2016-09-22] MEDS: HEPARIN PF for SUB-Q USE 5,000 UNIT/0.5 ML VIAL. SQ SCH ×4 (06:18→21:23)
--- NOTE | 2016-09-22 07:14 | CONS ---
DATE OF CONSULTATION: PRIMARY PHYSICIAN: Dr. Haney/Dr. Epstein. REASON FOR CONSULTATION: ESRD dialysis. HISTORY OF PRESENT ILLNESS: The patient is a 61-year-old -[place] gentleman, who was sent to the ER after "passing out episode" at dialysis, he was somewhat unresponsive and EMS was called and was brought here for further evaluation. For further details of these are not available. The patient is a poor historian and is unable to tell me much about what has been going on. He does not know where he is currently. He was hypotensive at presentation, but appears to be relatively normotensive currently. His lactic acid was noted to be 3.4. He is somewhat lethargic and difficult to arouse and is unable to provide much in terms of history. He is noted to have an area of eschar/wound on his penile tip. Urology has been consulted. We will await results of the same. Scrotal ultrasound was noted. He is also noted to have a white count of 30,000 and felt to be septic with type 2 nonstemi. For rest of details, see electronic records. SHELLY ESTEBAN MD DR: ELLIOT/[facility] JOB#: [id number] / [id number]
--- NOTE | 2016-09-22 07:45 | PDOC ---
Infectious Disease Note ROS ROS GEN: Denies fevers, chills, sweats HEENT: Denies blurred vision, sore throat CV: Denies chest pain RESP: Denies shortness of air, cough GI: Denies n/v/d NEURO: Denies confusion, dizziness MSK: Denies weakness, joint pain/swelling Vital Sign Vital Signs Vital Signs Date Time Temp Pulse Resp B/P (MAP) Pulse Ox O2 Delivery O2 Flow Rate FiO2 09/22/16 06:00 93 13 71/47 (55) 100 Nasal Cannula 2.0 09/22/16 04:00 99.3 99.3 Physical Exam PHYSICAL EXAM GENERAL: NAD, Alert HEENT: PERRL, OC/OP NECK: Supple, no JVD, no LN LUNGS: Clear HEART: S1S2, no gallop, no murmur ABD: Soft, NT, no organomegaly, no rebound EXT: No edema, no cyanosis [employer] WORK ASS[employer]IATE: Alert, oriented x 3, no focal neurologic deficit SKIN: No rash IV: ok Labs Lab Laboratory Tests Test 09/21/16 10:50 09/21/16 18:30 09/21/16 21:00 09/21/16 23:41 White Blood Count 30.7 x10^3/uL (4.0-11.0) Red Blood Count 4.16 x10^6/uL (4.30-5.70) Hemoglobin 11.4 g/dL (13.0-17.5) Hematocrit 36.3 % (39.0-53.0) Mean Corpuscular Volume 87 fL (79-100) Mean Corpuscular Hemoglobin 27 pg (25-35) Mean Corpuscular Hemoglobin Concent 31 g/dL (31-37) Red Cell Distribution Width 15.6 % (11.5-14.5) Platelet Count 252 x10^3/uL (140-400) Neutrophils (%) (Auto) 89 % (31-73) Lymphocytes (%) (Auto) 3 % (24-48) Monocytes (%) (Auto) 7 % (0-9) Eosinophils (%) (Auto) 0 % (0-3) Basophils (%) (Auto) 0 % (0-3) Neutrophils # (Auto) 27.5 x10^3uL (1.8-7.7) Lymphocytes # (Auto) 1.0 x10^3/uL (1.0-4.8) Monocytes # (Auto) 2.2 x10^3/uL (0.0-1.1) Eosinophils # (Auto) 0.0 x10^3/uL (0.0-0.7) Basophils # (Auto) 0.0 x10^3/uL (0.0-0.2) Segmented Neutrophils % 84 % (35-66) Band Neutrophils % 9 % (0-9) Monocytes % 7 % (0-10) Platelet Estimate Adequate (ADEQUATE) Polychromasia Slight Poikilocytosis Slight Anisocytosis Slight Target Cells Few Sodium Level 142 mmol/L (136-145) Potassium Level 4.2 mmol/L (3.5-5.1) Chloride Level 99 mmol/L (98-107) Carbon Dioxide Level 27 mmol/L (21-32) Anion Gap 16 (6-14) Blood Urea Nitrogen 27 mg/dL (8-26) Creatinine 4.9 mg/dL (0.7-1.3) Estimated GFR (Cockcroft-Gault) 14.7 BUN/Creatinine Ratio 6 (6-20) Glucose Level 143 mg/dL (70-99) Lactic Acid Level 3.4 mmol/L (0.4-2.0) 1.8 mmol/L (0.4-2.0) Calcium Level 10.4 mg/dL (8.5-10.1) Magnesium Level 2.1 mg/dL (1.8-2.4) Total Bilirubin 0.4 mg/dL (0.2-1.0) Aspartate Amino Transf (AST/SGOT) 33 U/L (15-37) Alanine Aminotransferase (ALT/SGPT) 16 U/L (16-63) Alkaline Phosphatase 124 U/L (46-116) Creatine Kinase 419 U/L (39-308) Creatine Kinase MB (Mass) 4.5 ng/mL (0.0-3.6) Creatine Kinase MB Relative Index 1.1 % (0-4) Troponin I Quantitative 0.620 ng/mL (0.000-0.055) 0.648 ng/mL (0.000-0.055) UO-Doo-U-Type Natriuretic Peptide > 39522 pg/mL (0-124) Total Protein 8.3 g/dL (6.4-8.2) Albumin 2.5 g/dL (3.4-5.0) Albumin/Globulin Ratio 0.4 (1.0-1.7) Thyroid Stimulating Hormone (TSH) 1.281 uIU/mL (0.358-3.74) Procalcitonin 21.86 ng/mL (0.00-0.10) O2 Saturation 96 % (92-99) Arterial Blood pH 7.36 (7.35-7.45) Arterial Blood pCO2 at Patient Temp 45 mmHg (35-46) Arterial Blood pO2 at Patient Temp 90 mmHg (65-108) Arterial Blood HCO3 25 mmol/L (21-28) Arterial Blood Base Excess -1 mmol/L (-3-3) FiO2 28 Glucose (Fingerstick) 111 mg/dL (70-99) Test 09/22/16 00:35 09/22/16 04:22 09/22/16 05:00 Erythrocyte Sedimentation Rate 92 (0-15) Troponin I Quantitative 0.665 ng/mL (0.000-0.055) 0.834 ng/mL (0.000-0.055) Glucose (Fingerstick) 99 mg/dL (70-99) White Blood Count 25.2 x10^3/uL (4.0-11.0) Red Blood Count 4.01 x10^6/uL (4.30-5.70) Hemoglobin 11.0 g/dL (13.0-17.5) Hematocrit 35.3 % (39.0-53.0) Mean Corpuscular Volume 88 fL (79-100) Mean Corpuscular Hemoglobin 27 pg (25-35) Mean Corpuscular Hemoglobin Concent 31 g/dL (31-37) Red Cell Distribution Width 15.7 % (11.5-14.5) Platelet Count 226 x10^3/uL (140-400) Neutrophils (%) (Auto) 92 % (31-73) Lymphocytes (%) (Auto) 3 % (24-48) Monocytes (%) (Auto) 5 % (0-9) Eosinophils (%) (Auto) 0 % (0-3) Basophils (%) (Auto) 0 % (0-3) Neutrophils # (Auto) 23.2 x10^3uL (1.8-7.7) Lymphocytes # (Auto) 0.8 x10^3/uL (1.0-4.8) Monocytes # (Auto) 1.2 x10^3/uL (0.0-1.1) Eosinophils # (Auto) 0.0 x10^3/uL (0.0-0.7) Basophils # (Auto) 0.1 x10^3/uL (0.0-0.2) Sodium Level 144 mmol/L (136-145) Potassium Level 4.4 mmol/L (3.5-5.1) Chloride Level 101 mmol/L (98-107) Carbon Dioxide Level 21 mmol/L (21-32) Anion Gap 22 (6-14) Blood Urea Nitrogen 44 mg/dL (8-26) Creatinine 5.8 mg/dL (0.7-1.3) Estimated GFR (Cockcroft-Gault) 12.1 Glucose Level 109 mg/dL (70-99) Lactic Acid Level 3.5 mmol/L (0.4-2.0) Calcium Level 10.3 mg/dL (8.5-10.1) Phosphorus Level 7.0 mg/dL (2.6-4.7) Magnesium Level 2.3 mg/dL (1.8-2.4) Albumin 2.3 g/dL (3.4-5.0) Triglycerides Level 73 mg/dL (0-150) Cholesterol Level 96 mg/dL (0-200) LDL Cholesterol, Calculated 32 mg/dL (0-100) VLDL Cholesterol, Calculated 15 mg/dL (0-40) Non-HDL Cholesterol Calculated 47 mg/dL (0-129) HDL Cholesterol 49 mg/dL (40-60) Cholesterol/HDL Ratio 2.0 Objective Assessment Fever Sepsis -POA Encephalopathy Necrosis of glans CKD on HD PAD NSTEMI Plan Plan of Care Cont abx Check Ammonia level F/u labs/cults Await urology eval Consult Vascular with cool extremities/glans necrosis/previous CT and check aortogram If Mental status does not improve may need LP/neuro eval D/w Dr. Pacheco and Dr. Haney Thank you 35 mins # [id number] LORI SOLIMAN MD Sep 22, 2016 07:45
--- NOTE | 2016-09-22 08:25 | PDOC ---
SUBJECTIVE ROS ESRD not very responsive this am. was moved to ICU due to low BPs despite IVF Boluses OBJECTIVE Vital Signs Vital Signs Date Time Temp Pulse Resp B/P (MAP) Pulse Ox O2 Delivery O2 Flow Rate FiO2 09/22/16 08:09 86 13 80/51 (61) 100 Nasal Cannula 2.0 09/22/16 04:00 99.3 99.3 I & 0 Intake and Output 09/22/16 07:00 Intake Total 1250 ml Output Total 0 ml Balance 1250 ml Intake Oral 200 ml IV Total 1050 ml Output Urine Total 0 ml PHYSICAL EXAM Physical Exam General Appearance: barely Awake but not fully Alert Oriented x 0-1 In no Distress Eyes: Conjunctiva Normal; LEft eye prosthetic, EN: No EN Drainage Mucous Memb. dryish Neck: no JVD + JVP Supple no Thyromegaly CVS: S1 S2 + Murmur No Gallop No Rub no Edema Resp: no Rales no Rhonchi no Acc. Muscle use GI: BS hypoactive NO Bruit Non Tender Non Distended : no CVA tenderness; no Suprapubic Tenderness SKIN: no Rashes Breast Exam deferred; ? Eschar at tip of penis Mu.Sk: Adequate ROM + Muscle Atrophy; ext feel cool and Hypoperfused Heme: Unable to palpate Obvious LAD no palp Splenomegaly NEURO: dec Strength damien in lower ext vs Cranial Nerves unable to be assessed due to lack of co-operation Psych: unable to assess no Active hallucination Assessment & Plan ESRD: Current FLuid and E-lyte status does not necessitate emergent need for Dialysis. Will re-evaluate for Dialysis in am and continue on MWF schedule. Anemia: no Epogen ordere for hgb > 11 Transfuse with next HD as needed. HypoTN (Now on pressors) - suspect septic Shock; IVF as ordered. Will begin IVF replacement with CVP monitoring (although CVP may need to run higher in setting of pulm HTN) Current meds reviewed. ECHO noted WAG - Lactic is on ly 3.5 - mostly due to ^ed phos ASVDz - D/w Dr Mcdowell - CTA as ordered. I am not sure if this is contributing to ABN low BP vs being the etio of end-organ dysfunction. Bone & Mineral: follow phos and reassess need to change binder regimen, currently PO intake is min. HypoAlb - ? Need for TF vs TPN based on improvement in Mental status ^ed Steve - suspect due to recent HD - watch trend ? Sepsis +/- shock - IVF as needed Ischemic Glans - ? Asso with PVD - CTA and vasc/ URO eval pending Discussed Plan of Care and prognosis etc. at length with Dr. Haney and Dr Mcdowell COMMENT/RELEVANT DATA Meds Current Medications Medications (Trade) Dose Ordered Sig/Martina Start Time Stop Time Status Last Admin Dose Admin Acetaminophen (Acetaminophen Supp) 650 mg PRN Q6HRS PRN 09/22/16 00:30 Acetaminophen (Tylenol) 650 mg PRN Q6HRS PRN 09/21/16 17:00 Acetaminophen/ Hydrocodone Bitart (Lortab 5/325) 1 tab PRN TID PRN 09/21/16 17:00 Ciprofloxacin Lactate 200 ml @ 200 mls/hr Q24H 09/21/16 15:00 09/21/16 17:54 200 MLS/HR Heparin Sodium (Porcine) (Heparin Sq) 5,000 unit Q8HRS 09/21/16 22:00 09/22/16 06:18 5,000 UNIT Labetalol HCl (Normodyne) 10 mg PRN Q4HRS PRN 09/22/16 00:30 Magnesium Sulfate/ Dextrose 50 ml @ 25 mls/hr PRN DAILY PRN 09/21/16 16:00 Micafungin Sodium 100 mg/Dextrose 100 ml @ 100 mls/hr Q24H 09/21/16 21:00 09/22/16 00:01 100 MLS/HR Morphine Sulfate 2 mg PRN Q2HR PRN 09/21/16 15:00 09/22/16 14:59 Norepinephrine Bitartrate 250 ml @ 0 mls/hr CONT PRN 09/21/16 17:45 Ondansetron HCl (Zofran) 4 mg PRN Q6HRS PRN 09/21/16 16:52 09/22/16 16:51 Piperacillin Sod/ Tazobactam Sod 2.25 gm/Sodium Chloride 50 ml @ 100 mls/hr Q8HRS 09/21/16 18:00 09/22/16 06:18 100 MLS/HR Sodium Chloride 500 ml @ 0 mls/hr QID PRN 09/21/16 16:15 09/22/16 06:13 999 MLS/HR Vancomycin HCl 1 each 1X ONCE 09/23/16 06:00 09/23/16 06:01 Vancomycin HCl (Vanco Per Pharmacy) 1 each PRN DAILY PRN 09/21/16 17:45 09/21/16 17:52 1 EACH Vancomycin HCl 1.5 gm/Sodium Chloride 500 ml @ 250 mls/hr 1X ONCE 09/21/16 19:00 09/21/16 20:59 DC 09/21/16 20:18 250 MLS/HR Lab Laboratory Tests Test 09/21/16 10:50 09/21/16 18:30 09/21/16 21:00 09/21/16 23:41 White Blood Count 30.7 x10^3/uL (4.0-11.0) Red Blood Count 4.16 x10^6/uL (4.30-5.70) Hemoglobin 11.4 g/dL (13.0-17.5) Hematocrit 36.3 % (39.0-53.0) Mean Corpuscular Volume 87 fL (79-100) Mean Corpuscular Hemoglobin 27 pg (25-35) Mean Corpuscular Hemoglobin Concent 31 g/dL (31-37) Red Cell Distribution Width 15.6 % (11.5-14.5) Platelet Count 252 x10^3/uL (140-400) Neutrophils (%) (Auto) 89 % (31-73) Lymphocytes (%) (Auto) 3 % (24-48) Monocytes (%) (Auto) 7 % (0-9) Eosinophils (%) (Auto) 0 % (0-3) Basophils (%) (Auto) 0 % (0-3) Neutrophils # (Auto) 27.5 x10^3uL (1.8-7.7) Lymphocytes # (Auto) 1.0 x10^3/uL (1.0-4.8) Monocytes # (Auto) 2.2 x10^3/uL (0.0-1.1) Eosinophils # (Auto) 0.0 x10^3/uL (0.0-0.7) Basophils # (Auto) 0.0 x10^3/uL (0.0-0.2) Segmented Neutrophils % 84 % (35-66) Band Neutrophils % 9 % (0-9) Monocytes % 7 % (0-10) Platelet Estimate Adequate (ADEQUATE) Polychromasia Slight Poikilocytosis Slight Anisocytosis Slight Target Cells Few Sodium Level 142 mmol/L (136-145) Potassium Level 4.2 mmol/L (3.5-5.1) Chloride Level 99 mmol/L (98-107) Carbon Dioxide Level 27 mmol/L (21-32) Anion Gap 16 (6-14) Blood Urea Nitrogen 27 mg/dL (8-26) Creatinine 4.9 mg/dL (0.7-1.3) Estimated GFR (Cockcroft-Gault) 14.7 BUN/Creatinine Ratio 6 (6-20) Glucose Level 143 mg/dL (70-99) Lactic Acid Level 3.4 mmol/L (0.4-2.0) 1.8 mmol/L (0.4-2.0) Calcium Level 10.4 mg/dL (8.5-10.1) Magnesium Level 2.1 mg/dL (1.8-2.4) Total Bilirubin 0.4 mg/dL (0.2-1.0) Aspartate Amino Transf (AST/SGOT) 33 U/L (15-37) Alanine Aminotransferase (ALT/SGPT) 16 U/L (16-63) Alkaline Phosphatase 124 U/L (46-116) Creatine Kinase 419 U/L (39-308) Creatine Kinase MB (Mass) 4.5 ng/mL (0.0-3.6) Creatine Kinase MB Relative Index 1.1 % (0-4) Troponin I Quantitative 0.620 ng/mL (0.000-0.055) 0.648 ng/mL (0.000-0.055) US-Xjn-[id number]-Type Natriuretic Peptide > 09784 pg/mL (0-124) Total Protein 8.3 g/dL (6.4-8.2) Albumin 2.5 g/dL (3.4-5.0) Albumin/Globulin Ratio 0.4 (1.0-1.7) Thyroid Stimulating Hormone (TSH) 1.281 uIU/mL (0.358-3.74) Procalcitonin 21.86 ng/mL (0.00-0.10) O2 Saturation 96 % (92-99) Arterial Blood pH 7.36 (7.35-7.45) Arterial Blood pCO2 at Patient Temp 45 mmHg (35-46) Arterial Blood pO2 at Patient Temp 90 mmHg (65-108) Arterial Blood HCO3 25 mmol/L (21-28) Arterial Blood Base Excess -1 mmol/L (-3-3) FiO2 28 Glucose (Fingerstick) 111 mg/dL (70-99) Test 09/22/16 00:35 09/22/16 04:22 09/22/16 05:00 Erythrocyte Sedimentation Rate 92 (0-15) Troponin I Quantitative 0.665 ng/mL (0.000-0.055) 0.834 ng/mL (0.000-0.055) Glucose (Fingerstick) 99 mg/dL (70-99) White Blood Count 25.2 x10^3/uL (4.0-11.0) Red Blood Count 4.01 x10^6/uL (4.30-5.70) Hemoglobin 11.0 g/dL (13.0-17.5) Hematocrit 35.3 % (39.0-53.0) Mean Corpuscular Volume 88 fL (79-100) Mean Corpuscular Hemoglobin 27 pg (25-35) Mean Corpuscular Hemoglobin Concent 31 g/dL (31-37) Red Cell Distribution Width 15.7 % (11.5-14.5) Platelet Count 226 x10^3/uL (140-400) Neutrophils (%) (Auto) 92 % (31-73) Lymphocytes (%) (Auto) 3 % (24-48) Monocytes (%) (Auto) 5 % (0-9) Eosinophils (%) (Auto) 0 % (0-3) Basophils (%) (Auto) 0 % (0-3) Neutrophils # (Auto) 23.2 x10^3uL (1.8-7.7) Lymphocytes # (Auto) 0.8 x10^3/uL (1.0-4.8) Monocytes # (Auto) 1.2 x10^3/uL (0.0-1.1) Eosinophils # (Auto) 0.0 x10^3/uL (0.0-0.7) Basophils # (Auto) 0.1 x10^3/uL (0.0-0.2) Sodium Level 144 mmol/L (136-145) Potassium Level 4.4 mmol/L (3.5-5.1) Chloride Level 101 mmol/L (98-107) Carbon Dioxide Level 21 mmol/L (21-32) Anion Gap 22 (6-14) Blood Urea Nitrogen 44 mg/dL (8-26) Creatinine 5.8 mg/dL (0.7-1.3) Estimated GFR (Cockcroft-Gault) 12.1 Glucose Level 109 mg/dL (70-99) Lactic Acid Level 3.5 mmol/L (0.4-2.0) Calcium Level 10.3 mg/dL (8.5-10.1) Phosphorus Level 7.0 mg/dL (2.6-4.7) Magnesium Level 2.3 mg/dL (1.8-2.4) Albumin 2.3 g/dL (3.4-5.0) Triglycerides Level 73 mg/dL (0-150) Cholesterol Level 96 mg/dL (0-200) LDL Cholesterol, Calculated 32 mg/dL (0-100) VLDL Cholesterol, Calculated 15 mg/dL (0-40) Non-HDL Cholesterol Calculated 47 mg/dL (0-129) HDL Cholesterol 49 mg/dL (40-60) Cholesterol/HDL Ratio 2.0 Other The left ventricle is normal size; The Ejection Fraction is estimated at 50%. Doppler and Color Flow revealed moderate tricuspid regurgitation. The pulmonary artery systolic pressure is estimated at 50 mmHg. There is moderate pulmonary hypertension. SHELLY ESTEBAN MD Sep 22, 2016 08:25
--- NOTE | 2016-09-22 08:36 | PDOC ---
PROGRESS NOTES Chief Complaint Chief Complaint 1. Syncope while inb HD 2. Necrotic glans penis with ACUTE pain 3. Bilaterally cold feet 4. Hypotension associated with HD 5. Sepsis with hypotension 6. ESRD On HD, ANURIC 6 Trop elevation in the background of sepsis and ESRD 7. Anemia of CKD 7. Elevated lactate 8. Acute encephalopathy sec to above 9. HYpercalcemia 10. MOd pCM 11. Elevated BNP 12. Penile wound 13. Rt varicocoele History of Present Illness History of Present Illness PAin on penis to inspect Bilateral cold feet US shows dec blood flow to testicles SOme fevers - likely innocent bystander I do believe this is all vascular in etiology, probable source in the iliacs vs common femorals,. Agree with CTA angio with run off BP still low side, but responding to prn IV boluses NOt needing pressors overnight MUtliple calls overnight, confusion, enceph,. 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 ANuric Dw case with ID and renal PLAN: CTA angio Keep iCU Critically ill LIkely will need urgent vascular consult pending CTA - will order CTA stat US arterial both legs Dw analysis reporting developer too CC 31 Vitals Vitals Vital Signs Date Time Temp Pulse Resp B/P (MAP) Pulse Ox O2 Delivery O2 Flow Rate FiO2 09/22/16 08:09 86 13 80/51 (61) 100 Nasal Cannula 2.0 09/22/16 04:00 99.3 99.3 Physical Exam General: No acute distress Heart: Normal S1, Normal S2, No murmurs, Other (tele:SR) Abdomen: Normal bowel sounds, Soft, No tenderness, No hepatosplenomegaly, No masses Extremities: Other (R AV fistula with palpable bruit, good pulses peripherally) Skin: No rashes, No breakdown, No significant lesion Labs LABS Laboratory Tests Test 09/21/16 10:50 09/21/16 18:30 09/21/16 21:00 09/21/16 23:41 White Blood Count 30.7 x10^3/uL (4.0-11.0) Red Blood Count 4.16 x10^6/uL (4.30-5.70) Hemoglobin 11.4 g/dL (13.0-17.5) Hematocrit 36.3 % (39.0-53.0) Mean Corpuscular Volume 87 fL (79-100) Mean Corpuscular Hemoglobin 27 pg (25-35) Mean Corpuscular Hemoglobin Concent 31 g/dL (31-37) Red Cell Distribution Width 15.6 % (11.5-14.5) Platelet Count 252 x10^3/uL (140-400) Neutrophils (%) (Auto) 89 % (31-73) Lymphocytes (%) (Auto) 3 % (24-48) Monocytes (%) (Auto) 7 % (0-9) Eosinophils (%) (Auto) 0 % (0-3) Basophils (%) (Auto) 0 % (0-3) Neutrophils # (Auto) 27.5 x10^3uL (1.8-7.7) Lymphocytes # (Auto) 1.0 x10^3/uL (1.0-4.8) Monocytes # (Auto) 2.2 x10^3/uL (0.0-1.1) Eosinophils # (Auto) 0.0 x10^3/uL (0.0-0.7) Basophils # (Auto) 0.0 x10^3/uL (0.0-0.2) Segmented Neutrophils % 84 % (35-66) Band Neutrophils % 9 % (0-9) Monocytes % 7 % (0-10) Platelet Estimate Adequate (ADEQUATE) Polychromasia Slight Poikilocytosis Slight Anisocytosis Slight Target Cells Few Sodium Level 142 mmol/L (136-145) Potassium Level 4.2 mmol/L (3.5-5.1) Chloride Level 99 mmol/L (98-107) Carbon Dioxide Level 27 mmol/L (21-32) Anion Gap 16 (6-14) Blood Urea Nitrogen 27 mg/dL (8-26) Creatinine 4.9 mg/dL (0.7-1.3) Estimated GFR (Cockcroft-Gault) 14.7 BUN/Creatinine Ratio 6 (6-20) Glucose Level 143 mg/dL (70-99) Lactic Acid Level 3.4 mmol/L (0.4-2.0) 1.8 mmol/L (0.4-2.0) Calcium Level 10.4 mg/dL (8.5-10.1) Magnesium Level 2.1 mg/dL (1.8-2.4) Total Bilirubin 0.4 mg/dL (0.2-1.0) Aspartate Amino Transf (AST/SGOT) 33 U/L (15-37) Alanine Aminotransferase (ALT/SGPT) 16 U/L (16-63) Alkaline Phosphatase 124 U/L (46-116) Creatine Kinase 419 U/L (39-308) Creatine Kinase MB (Mass) 4.5 ng/mL (0.0-3.6) Creatine Kinase MB Relative Index 1.1 % (0-4) Troponin I Quantitative 0.620 ng/mL (0.000-0.055) 0.648 ng/mL (0.000-0.055) XV-Ons-Z-Type Natriuretic Peptide > 55724 pg/mL (0-124) Total Protein 8.3 g/dL (6.4-8.2) Albumin 2.5 g/dL (3.4-5.0) Albumin/Globulin Ratio 0.4 (1.0-1.7) Thyroid Stimulating Hormone (TSH) 1.281 uIU/mL (0.358-3.74) Procalcitonin 21.86 ng/mL (0.00-0.10) O2 Saturation 96 % (92-99) Arterial Blood pH 7.36 (7.35-7.45) Arterial Blood pCO2 at Patient Temp 45 mmHg (35-46) Arterial Blood pO2 at Patient Temp 90 mmHg (65-108) Arterial Blood HCO3 25 mmol/L (21-28) Arterial Blood Base Excess -1 mmol/L (-3-3) FiO2 28 Glucose (Fingerstick) 111 mg/dL (70-99) Test 09/22/16 00:35 09/22/16 04:22 09/22/16 05:00 Erythrocyte Sedimentation Rate 92 (0-15) Troponin I Quantitative 0.665 ng/mL (0.000-0.055) 0.834 ng/mL (0.000-0.055) Glucose (Fingerstick) 99 mg/dL (70-99) White Blood Count 25.2 x10^3/uL (4.0-11.0) Red Blood Count 4.01 x10^6/uL (4.30-5.70) Hemoglobin 11.0 g/dL (13.0-17.5) Hematocrit 35.3 % (39.0-53.0) Mean Corpuscular Volume 88 fL (79-100) Mean Corpuscular Hemoglobin 27 pg (25-35) Mean Corpuscular Hemoglobin Concent 31 g/dL (31-37) Red Cell Distribution Width 15.7 % (11.5-14.5) Platelet Count 226 x10^3/uL (140-400) Neutrophils (%) (Auto) 92 % (31-73) Lymphocytes (%) (Auto) 3 % (24-48) Monocytes (%) (Auto) 5 % (0-9) Eosinophils (%) (Auto) 0 % (0-3) Basophils (%) (Auto) 0 % (0-3) Neutrophils # (Auto) 23.2 x10^3uL (1.8-7.7) Lymphocytes # (Auto) 0.8 x10^3/uL (1.0-4.8) Monocytes # (Auto) 1.2 x10^3/uL (0.0-1.1) Eosinophils # (Auto) 0.0 x10^3/uL (0.0-0.7) Basophils # (Auto) 0.1 x10^3/uL (0.0-0.2) Sodium Level 144 mmol/L (136-145) Potassium Level 4.4 mmol/L (3.5-5.1) Chloride Level 101 mmol/L (98-107) Carbon Dioxide Level 21 mmol/L (21-32) Anion Gap 22 (6-14) Blood Urea Nitrogen 44 mg/dL (8-26) Creatinine 5.8 mg/dL (0.7-1.3) Estimated GFR (Cockcroft-Gault) 12.1 Glucose Level 109 mg/dL (70-99) Lactic Acid Level 3.5 mmol/L (0.4-2.0) Calcium Level 10.3 mg/dL (8.5-10.1) Phosphorus Level 7.0 mg/dL (2.6-4.7) Magnesium Level 2.3 mg/dL (1.8-2.4) Albumin 2.3 g/dL (3.4-5.0) Triglycerides Level 73 mg/dL (0-150) Cholesterol Level 96 mg/dL (0-200) LDL Cholesterol, Calculated 32 mg/dL (0-100) VLDL Cholesterol, Calculated 15 mg/dL (0-40) Non-HDL Cholesterol Calculated 47 mg/dL (0-129) HDL Cholesterol 49 mg/dL (40-60) Cholesterol/HDL Ratio 2.0 Review of Systems Review of Systems confused. minimally cooperative Assessment and Plan Assessmemt and Plan Problems Medical Problems: (1) Acute electrocardiogram changes Status: Acute (2) Open wound of penis Status: Acute (3) Sepsis Status: Acute Problems: Comment Review of Relevant I have reviewed the following items parvin (where applicable) has been applied. Labs Laboratory Tests Test 09/21/16 10:50 09/21/16 18:30 09/21/16 21:00 09/21/16 23:41 White Blood Count 30.7 x10^3/uL (4.0-11.0) Red Blood Count 4.16 x10^6/uL (4.30-5.70) Hemoglobin 11.4 g/dL (13.0-17.5) Hematocrit 36.3 % (39.0-53.0) Mean Corpuscular Volume 87 fL (79-100) Mean Corpuscular Hemoglobin 27 pg (25-35) Mean Corpuscular Hemoglobin Concent 31 g/dL (31-37) Red Cell Distribution Width 15.6 % (11.5-14.5) Platelet Count 252 x10^3/uL (140-400) Neutrophils (%) (Auto) 89 % (31-73) Lymphocytes (%) (Auto) 3 % (24-48) Monocytes (%) (Auto) 7 % (0-9) Eosinophils (%) (Auto) 0 % (0-3) Basophils (%) (Auto) 0 % (0-3) Neutrophils # (Auto) 27.5 x10^3uL (1.8-7.7) Lymphocytes # (Auto) 1.0 x10^3/uL (1.0-4.8) Monocytes # (Auto) 2.2 x10^3/uL (0.0-1.1) Eosinophils # (Auto) 0.0 x10^3/uL (0.0-0.7) Basophils # (Auto) 0.0 x10^3/uL (0.0-0.2) Segmented Neutrophils % 84 % (35-66) Band Neutrophils % 9 % (0-9) Monocytes % 7 % (0-10) Platelet Estimate Adequate (ADEQUATE) Polychromasia Slight Poikilocytosis Slight Anisocytosis Slight Target Cells Few Sodium Level 142 mmol/L (136-145) Potassium Level 4.2 mmol/L (3.5-5.1) Chloride Level 99 mmol/L (98-107) Carbon Dioxide Level 27 mmol/L (21-32) Anion Gap 16 (6-14) Blood Urea Nitrogen 27 mg/dL (8-26) Creatinine 4.9 mg/dL (0.7-1.3) Estimated GFR (Cockcroft-Gault) 14.7 BUN/Creatinine Ratio 6 (6-20) Glucose Level 143 mg/dL (70-99) Lactic Acid Level 3.4 mmol/L (0.4-2.0) 1.8 mmol/L (0.4-2.0) Calcium Level 10.4 mg/dL (8.5-10.1) Magnesium Level 2.1 mg/dL (1.8-2.4) Total Bilirubin 0.4 mg/dL (0.2-1.0) Aspartate Amino Transf (AST/SGOT) 33 U/L (15-37) Alanine Aminotransferase (ALT/SGPT) 16 U/L (16-63) Alkaline Phosphatase 124 U/L (46-116) Creatine Kinase 419 U/L (39-308) Creatine Kinase MB (Mass) 4.5 ng/mL (0.0-3.6) Creatine Kinase MB Relative Index 1.1 % (0-4) Troponin I Quantitative 0.620 ng/mL (0.000-0.055) 0.648 ng/mL (0.000-0.055) CX-Ele-W-Type Natriuretic Peptide > 69891 pg/mL (0-124) Total Protein 8.3 g/dL (6.4-8.2) Albumin 2.5 g/dL (3.4-5.0) Albumin/Globulin Ratio 0.4 (1.0-1.7) Thyroid Stimulating Hormone (TSH) 1.281 uIU/mL (0.358-3.74) Procalcitonin 21.86 ng/mL (0.00-0.10) O2 Saturation 96 % (92-99) Arterial Blood pH 7.36 (7.35-7.45) Arterial Blood pCO2 at Patient Temp 45 mmHg (35-46) Arterial Blood pO2 at Patient Temp 90 mmHg (65-108) Arterial Blood HCO3 25 mmol/L (21-28) Arterial Blood Base Excess -1 mmol/L (-3-3) FiO2 28 Glucose (Fingerstick) 111 mg/dL (70-99) Test 09/22/16 00:35 09/22/16 04:22 09/22/16 05:00 Erythrocyte Sedimentation Rate 92 (0-15) Troponin I Quantitative 0.665 ng/mL (0.000-0.055) 0.834 ng/mL (0.000-0.055) Glucose (Fingerstick) 99 mg/dL (70-99) White Blood Count 25.2 x10^3/uL (4.0-11.0) Red Blood Count 4.01 x10^6/uL (4.30-5.70) Hemoglobin 11.0 g/dL (13.0-17.5) Hematocrit 35.3 % (39.0-53.0) Mean Corpuscular Volume 88 fL (79-100) Mean Corpuscular Hemoglobin 27 pg (25-35) Mean Corpuscular Hemoglobin Concent 31 g/dL (31-37) Red Cell Distribution Width 15.7 % (11.5-14.5) Platelet Count 226 x10^3/uL (140-400) Neutrophils (%) (Auto) 92 % (31-73) Lymphocytes (%) (Auto) 3 % (24-48) Monocytes (%) (Auto) 5 % (0-9) Eosinophils (%) (Auto) 0 % (0-3) Basophils (%) (Auto) 0 % (0-3) Neutrophils # (Auto) 23.2 x10^3uL (1.8-7.7) Lymphocytes # (Auto) 0.8 x10^3/uL (1.0-4.8) Monocytes # (Auto) 1.2 x10^3/uL (0.0-1.1) Eosinophils # (Auto) 0.0 x10^3/uL (0.0-0.7) Basophils # (Auto) 0.1 x10^3/uL (0.0-0.2) Sodium Level 144 mmol/L (136-145) Potassium Level 4.4 mmol/L (3.5-5.1) Chloride Level 101 mmol/L (98-107) Carbon Dioxide Level 21 mmol/L (21-32) Anion Gap 22 (6-14) Blood Urea Nitrogen 44 mg/dL (8-26) Creatinine 5.8 mg/dL (0.7-1.3) Estimated GFR (Cockcroft-Gault) 12.1 Glucose Level 109 mg/dL (70-99) Lactic Acid Level 3.5 mmol/L (0.4-2.0) Calcium Level 10.3 mg/dL (8.5-10.1) Phosphorus Level 7.0 mg/dL (2.6-4.7) Magnesium Level 2.3 mg/dL (1.8-2.4) Albumin 2.3 g/dL (3.4-5.0) Triglycerides Level 73 mg/dL (0-150) Cholesterol Level 96 mg/dL (0-200) LDL Cholesterol, Calculated 32 mg/dL (0-100) VLDL Cholesterol, Calculated 15 mg/dL (0-40) Non-HDL Cholesterol Calculated 47 mg/dL (0-129) HDL Cholesterol 49 mg/dL (40-60) Cholesterol/HDL Ratio 2.0 Laboratory Tests Test 09/21/16 10:50 09/21/16 18:30 09/21/16 21:00 09/21/16 23:41 White Blood Count 30.7 x10^3/uL (4.0-11.0) Red Blood Count 4.16 x10^6/uL (4.30-5.70) Hemoglobin 11.4 g/dL (13.0-17.5) Hematocrit 36.3 % (39.0-53.0) Mean Corpuscular Volume 87 fL (79-100) Mean Corpuscular Hemoglobin 27 pg (25-35) Mean Corpuscular Hemoglobin Concent 31 g/dL (31-37) Red Cell Distribution Width 15.6 % (11.5-14.5) Platelet Count 252 x10^3/uL (140-400) Neutrophils (%) (Auto) 89 % (31-73) Lymphocytes (%) (Auto) 3 % (24-48) Monocytes (%) (Auto) 7 % (0-9) Eosinophils (%) (Auto) 0 % (0-3) Basophils (%) (Auto) 0 % (0-3) Neutrophils # (Auto) 27.5 x10^3uL (1.8-7.7) Lymphocytes # (Auto) 1.0 x10^3/uL (1.0-4.8) Monocytes # (Auto) 2.2 x10^3/uL (0.0-1.1) Eosinophils # (Auto) 0.0 x10^3/uL (0.0-0.7) Basophils # (Auto) 0.0 x10^3/uL (0.0-0.2) Segmented Neutrophils % 84 % (35-66) Band Neutrophils % 9 % (0-9) Monocytes % 7 % (0-10) Platelet Estimate Adequate (ADEQUATE) Polychromasia Slight Poikilocytosis Slight Anisocytosis Slight Target Cells Few Sodium Level 142 mmol/L (136-145) Potassium Level 4.2 mmol/L (3.5-5.1) Chloride Level 99 mmol/L (98-107) Carbon Dioxide Level 27 mmol/L (21-32) Anion Gap 16 (6-14) Blood Urea Nitrogen 27 mg/dL (8-26) Creatinine 4.9 mg/dL (0.7-1.3) Estimated GFR (Cockcroft-Gault) 14.7 BUN/Creatinine Ratio 6 (6-20) Glucose Level 143 mg/dL (70-99) Lactic Acid Level 3.4 mmol/L (0.4-2.0) 1.8 mmol/L (0.4-2.0) Calcium Level 10.4 mg/dL (8.5-10.1) Magnesium Level 2.1 mg/dL (1.8-2.4) Total Bilirubin 0.4 mg/dL (0.2-1.0) Aspartate Amino Transf (AST/SGOT) 33 U/L (15-37) Alanine Aminotransferase (ALT/SGPT) 16 U/L (16-63) Alkaline Phosphatase 124 U/L (46-116) Creatine Kinase 419 U/L (39-308) Creatine Kinase MB (Mass) 4.5 ng/mL (0.0-3.6) Creatine Kinase MB Relative Index 1.1 % (0-4) Troponin I Quantitative 0.620 ng/mL (0.000-0.055) 0.648 ng/mL (0.000-0.055) NV-Mdx-M-Type Natriuretic Peptide > 08296 pg/mL (0-124) Total Protein 8.3 g/dL (6.4-8.2) Albumin 2.5 g/dL (3.4-5.0) Albumin/Globulin Ratio 0.4 (1.0-1.7) Thyroid Stimulating Hormone (TSH) 1.281 uIU/mL (0.358-3.74) Procalcitonin 21.86 ng/mL (0.00-0.10) O2 Saturation 96 % (92-99) Arterial Blood pH 7.36 (7.35-7.45) Arterial Blood pCO2 at Patient Temp 45 mmHg (35-46) Arterial Blood pO2 at Patient Temp 90 mmHg (65-108) Arterial Blood HCO3 25 mmol/L (21-28) Arterial Blood Base Excess -1 mmol/L (-3-3) FiO2 28 Glucose (Fingerstick) 111 mg/dL (70-99) Test 09/22/16 00:35 09/22/16 04:22 09/22/16 05:00 Erythrocyte Sedimentation Rate 92 (0-15) Troponin I Quantitative 0.665 ng/mL (0.000-0.055) 0.834 ng/mL (0.000-0.055) Glucose (Fingerstick) 99 mg/dL (70-99) White Blood Count 25.2 x10^3/uL (4.0-11.0) Red Blood Count 4.01 x10^6/uL (4.30-5.70) Hemoglobin 11.0 g/dL (13.0-17.5) Hematocrit 35.3 % (39.0-53.0) Mean Corpuscular Volume 88 fL (79-100) Mean Corpuscular Hemoglobin 27 pg (25-35) Mean Corpuscular Hemoglobin Concent 31 g/dL (31-37) Red Cell Distribution Width 15.7 % (11.5-14.5) Platelet Count 226 x10^3/uL (140-400) Neutrophils (%) (Auto) 92 % (31-73) Lymphocytes (%) (Auto) 3 % (24-48) Monocytes (%) (Auto) 5 % (0-9) Eosinophils (%) (Auto) 0 % (0-3) Basophils (%) (Auto) 0 % (0-3) Neutrophils # (Auto) 23.2 x10^3uL (1.8-7.7) Lymphocytes # (Auto) 0.8 x10^3/uL (1.0-4.8) Monocytes # (Auto) 1.2 x10^3/uL (0.0-1.1) Eosinophils # (Auto) 0.0 x10^3/uL (0.0-0.7) Basophils # (Auto) 0.1 x10^3/uL (0.0-0.2) Sodium Level 144 mmol/L (136-145) Potassium Level 4.4 mmol/L (3.5-5.1) Chloride Level 101 mmol/L (98-107) Carbon Dioxide Level 21 mmol/L (21-32) Anion Gap 22 (6-14) Blood Urea Nitrogen 44 mg/dL (8-26) Creatinine 5.8 mg/dL (0.7-1.3) Estimated GFR (Cockcroft-Gault) 12.1 Glucose Level 109 mg/dL (70-99) Lactic Acid Level 3.5 mmol/L (0.4-2.0) Calcium Level 10.3 mg/dL (8.5-10.1) Phosphorus Level 7.0 mg/dL (2.6-4.7) Magnesium Level 2.3 mg/dL (1.8-2.4) Albumin 2.3 g/dL (3.4-5.0) Triglycerides Level 73 mg/dL (0-150) Cholesterol Level 96 mg/dL (0-200) LDL Cholesterol, Calculated 32 mg/dL (0-100) VLDL Cholesterol, Calculated 15 mg/dL (0-40) Non-HDL Cholesterol Calculated 47 mg/dL (0-129) HDL Cholesterol 49 mg/dL (40-60) Cholesterol/HDL Ratio 2.0 Medications Current Medications Ondansetron HCl (Zofran) 4 mg PRN Q8HRS PRN IV NAUSEA/VOMITING; Start 09/21/16 at 15:00; Stop 09/21/16 at 16:55; Status DC Morphine Sulfate 2 mg PRN Q2HR PRN IV PAIN; Start 09/21/16 at 15:00; Stop at 14:59 Ciprofloxacin Lactate 200 ml @ 200 mls/hr Q24H IV Last administered on 17:54; Start 09/21/16 at 15:00 Magnesium Sulfate/ Dextrose 50 ml @ 25 mls/hr PRN DAILY PRN IV for Mag < 1.7 on am labs; Start 09/21/16 at 16:00 Sodium Chloride 500 ml @ 0 mls/hr QID PRN IV map < 65 Last administered on 06:13; Start 09/21/16 at 16:15 Ondansetron HCl (Zofran) 4 mg PRN Q6HRS PRN IV NAUSEA/VOMITING; Start 09/21/16 at 16:52; Stop 09/22/16 at 16:51 Acetaminophen (Tylenol) 650 mg PRN Q6HRS PRN PO fever; Start 09/21/16 at 17:00 Acetaminophen/ Hydrocodone Bitart (Lortab 5/325) 1 tab PRN TID PRN PO pain; Start 09/21/16 at 17:00 Heparin Sodium (Porcine) (Heparin Sq) 5,000 unit Q8HRS SQ Last administered on 09/22/16 06:18; Start 09/21/16 at 22:00 Norepinephrine Bitartrate 250 ml @ 0 mls/hr CONT PRN IV SEE I/O RECORD; Start 09/21/16 at 17:45 Piperacillin Sod/ Tazobactam Sod 2.25 gm/Sodium Chloride 50 ml @ 100 mls/hr Q8HRS IV Last administered on 09/22/16 06:18; Start 09/21/16 at 18:00 Vancomycin HCl (Vanco Per Pharmacy) 1 each PRN DAILY PRN MC SEE COMMENTS Last administered on 09/21/16 17:52; Start 09/21/16 at 17:45 Micafungin Sodium 100 mg/Dextrose 100 ml @ 100 mls/hr Q24H IV Last administered on 09/22/16 00:01; Start 09/21/16 at 21:00 Vancomycin HCl 1.5 gm/Sodium Chloride 500 ml @ 250 mls/hr 1X ONCE IV Last administered on 09/21/16 20:18; Start 09/21/16 at 19:00; Stop 09/21/16 at 20:59 ; Status DC Vancomycin HCl 1 each 1X ONCE MC ; Start 09/23/16 at 06:00; Stop 09/23/16 at 06: 01 Acetaminophen (Acetaminophen Supp) 650 mg PRN Q6HRS PRN [place] MILD PAIN / TEMP; Start 09/22/16 at 00:30 Labetalol HCl (Normodyne) 10 mg PRN Q4HRS PRN IVP HYPERTENSION, SEE COMMENTS; Start 09/22/16 at 00:30 Active Scripts Active Bactrim Ds Tablet (Sulfamethoxazole/Trimethoprim) 1 Each Tablet 1 Tab PO BID Kinards 5-325 Tablet (Acetaminophen/Hydrocodone Bitart) 1 Each Tablet 1-2 Tab PO Q4-6HRS Vitals/I & O Vital Sign - Last 24 Hours 09/21/16 09/21/16 09/21/16 09/21/16 10:57 12:17 12:50 13:29 Temp 98.2 98.2 Pulse 93 88 86 97 Resp 18 18 18 19 B/P (MAP) 96/58 (71) 67/49 (55) 89/37 (54) 91/39 (56) Pulse Ox 99 99 99 100 O2 Delivery Room Air Room Air Room Air 09/21/16 09/21/16 09/21/16 09/21/16 19:22 19:45 19:57 20:00 Temp 98.4 98.4 Pulse 73 82 Resp 20 16 B/P (MAP) 98/56 (70) 127/71 (89) Pulse Ox 98 100 O2 Delivery Nasal Cannula Nasal Cannula Room Air Nasal Cannula O2 Flow Rate 2.0 2.0 2.0 09/21/16 09/21/16 09/21/16 09/21/16 20:00 20:15 20:30 20:45 Pulse 84 88 84 84 Resp 16 16 16 16 B/P (MAP) 167/85 (112) 134/70 (91) 107/65 (79) 93/61 (72) Pulse Ox 100 100 100 100 O2 Delivery Nasal Cannula Nasal Cannula Nasal Cannula Nasal Cannula O2 Flow Rate 2.0 2.0 2.0 2.0 09/21/16 09/21/16 09/21/16 09/21/16 21:00 22:00 23:00 23:59 Pulse 80 82 80 Resp 16 16 16 B/P (MAP) 112/66 (81) 142/74 (96) 147/77 (100) Pulse Ox 100 100 100 O2 Delivery Nasal Cannula Nasal Cannula Nasal Cannula Nasal Cannula O2 Flow Rate 2.0 2.0 2.0 2.0 09/22/16 09/22/16 09/22/16 09/22/16 00:00 01:00 02:00 03:00 Temp 102.6 102.6 Pulse 80 104 100 96 Resp 16 16 16 16 B/P (MAP) 101/68 (79) 143/71 (95) 90/53 (65) 87/54 (65) Pulse Ox 100 100 100 100 O2 Delivery Nasal Cannula Nasal Cannula Nasal Cannula Nasal Cannula O2 Flow Rate 2.0 2.0 2.0 2.0 09/22/16 09/22/16 09/22/16 09/22/16 04:00 04:00 05:00 06:00 Temp 99.3 99.3 Pulse 96 90 93 Resp 16 13 13 B/P (MAP) 80/52 (61) 69/46 (54) 71/47 (55) Pulse Ox 100 100 100 O2 Delivery Nasal Cannula Nasal Cannula Nasal Cannula Nasal Cannula O2 Flow Rate 2.0 2.0 2.0 2.0 09/22/16 09/22/16 07:15 08:09 Pulse 88 86 Resp 16 13 B/P (MAP) 86/53 (64) 80/51 (61) Pulse Ox 100 100 O2 Delivery Nasal Cannula Nasal Cannula O2 Flow Rate 2.0 2.0 Intake and Output 09/21/16 09/21/16 09/22/16 15:00 23:00 07:00 Intake Total 600 ml 650 ml Output Total 0 ml 0 ml Balance 600 ml 650 ml SABINE LE MD Sep 22, 2016 08:36
[2016-09-22] MEDS ORDERED: LIDOCAINE 1% / SOD BICARB 8.4% 20 ML VIAL. IJ ONE (08:45)
--- NOTE | 2016-09-22 09:39 | PDOC ---
Exam Master Ocean Master Ocean Dick Vp Sales Vp Sales Ru Hicks Pre-Procedure Diagnosis Pre-Procedure Diagnosis 61 YO male ICU patient with septic shock---bedside ICU CVC insertion requested for pressors and IV Abx Post-Procedure Diagnosis Post-Procedure Diagnosis Same Procedure Performed Procedure Performed Bedside sono guided CVC insertion Type of Anesthesia Type of Anesthesia Local Estimated Blood Loss EBL: Trace Drain/Tubes Drains/Tubes Left IJ 7F 3L 20cm Power Injectable CVC Condition of Patient Condition of Patient No change. No apparent complication. Disposition Disposition STAT pCXR requested for CVC position. Full report to follow. CHINTAN JARA MD Sep 22, 2016 09:39
[2016-09-22] MEDS ORDERED: CARV6.25 PO (09:45)
[2016-09-22] MEDS ORDERED: CINA30TA PO (09:45)
[2016-09-22] MEDS ORDERED: SERT25TA4 PO (09:45)
[2016-09-22] MEDS ORDERED: FENT1PAT90 TP (09:49)
[2016-09-22] MEDS ORDERED: DARB60DI SQ (09:49)
[2016-09-22] MEDS ORDERED: GABA-586 PO (09:49)
[2016-09-22] MEDS ORDERED: CARV12.5 PO (09:49)
[2016-09-22] MEDS ORDERED: PANT40TA3 PO (09:54)
[2016-09-22] MEDS ORDERED: LIDO20SO PO (09:54)
[2016-09-22] MEDS ORDERED: LORA10TA3 PO (09:54)
[2016-09-22] MEDS ORDERED: SEVE800T9 PO (09:54)
[2016-09-22] MEDS ORDERED: CYAN10005 PO (10:00)
[2016-09-22] MEDS ORDERED: HYDR25TA PO (10:00)
[2016-09-22] MEDS ORDERED: ASPI-482 PO (10:00)
[2016-09-22] MEDS ORDERED: LANT1000 PO (10:00)
[2016-09-22] MEDS ORDERED: POLY255P PO (10:00)
--- NOTE | 2016-09-22 10:02 | RAD ---
Indication assess line placement. A single view of the chest was obtained and is compared to an examination one day earlier. There has been interval placement of a left IJ catheter. The tip is appropriately positioned above the SVC right atrial junction. No complication is seen and specifically there is no evidence of pneumothorax. Heart size and pulmonary vessels are unchanged. An acute parenchymal infiltrate is not seen. Cardiac defibrillating lead is noted. IMPRESSION: Apart from placement of a left IJ catheter there has not been a significant change in the appearance of the chest
[2016-09-22] MEDS ORDERED: SENN8.6T99 PO (10:07)
[2016-09-22] MEDS ORDERED: MAGN2400 PO (10:07)
[2016-09-22] MEDS ORDERED: NA P133E2 RC (10:07)
[2016-09-22] MEDS ORDERED: ATOR10TA PO (10:07)
[2016-09-22] MEDS ORDERED: MELA3TAB PO (10:07)
[2016-09-22] MEDS ORDERED: LORA0.5T96 PO (10:07)
[2016-09-22] MEDS ORDERED: ACET500T68 PO (10:09)
[2016-09-22] MEDS ORDERED: OXYC15TA PO (10:09)
[2016-09-22] MEDS ORDERED: ONDA-35 PO (10:14)
[2016-09-22] MEDS ORDERED: APIX5TAB PO (10:14)
[2016-09-22] MEDS ORDERED: BISA10SU55 RC (10:20)
[2016-09-22] MEDS ORDERED: OXYC10TA32 PO (10:20)
--- NOTE | 2016-09-22 10:22 | PDOC ---
Provider Note Provider Note dictated ROLY BOWIE MD Sep 22, 2016 10:22
[2016-09-22] MEDS ORDERED: IOHEXOL 350 MG/ML 100 ML VIAL. IV ONE (11:00)
[2016-09-22] MEDS ORDERED: CONTRAST GIVEN MC PRN (11:00)
--- NOTE | 2016-09-22 11:41 | CONS ---
DATE OF CONSULTATION: ATTENDING PHYSICIAN: Dr. Haney. REASON FOR CONSULTATION: Sepsis. HISTORY OF PRESENT ILLNESS: The patient is a 61-year-old -[place] male who has been to different hospitals recently, was initially at [facility] and then was transferred to [facility]. He was brought in to the hospital ER with hypotension and syncope. He had dialysis yesterday and then he dropped his blood pressure later and had altered mental status. His labs showed a significantly high white cell count. There were no fevers reported. I reviewed his chest x-ray which was clear. The patient has history of end-stage renal disease. His lactic acid was 3.4. His systolic blood pressure was in the 60s, which responded well to IV fluids and currently he is not on any pressors. His systolic blood pressure is 100. He is able to respond to commands. He knows where he is and he knows this is daytime. Currently on 2 liters of oxygen with 100% saturations. He had an ultrasound of his testicles done, which shows decreased blood flow secondary to systemic process. He has necrosis of the glans penis. I have been asked to see him for further evaluation. He said he did smoke in the past. PAST MEDICAL HISTORY: Significant for history of AFib, history of hypertension, history of cardiomyopathy and valvular heart disease being followed at . EF was around 35-40%. History of chronic renal failure, on hemodialysis. History of AICD. PAST SURGICAL HISTORY: AICD. Also, left knee, left shoulder and left eye enucleation. FAMILY HISTORY: Noncontributory to lungs. ALLERGIES: None. CURRENT MEDICATIONS: Reviewed as listed in the [facility] including broad-spectrum antibiotics and antifungal. SOCIAL HISTORY: He says he had a history of smoking in the past. PHYSICAL EXAMINATION: GENERAL: He is awake. He is following commands. He does doze off in between conversations. VITAL SIGNS: Latest blood pressure 100 systolic, on no pressors. Pulse ox 100% on 2 liters, afebrile, with a T-max of 102.6, early this morning. NECK: Supple. CHEST: Clear breath sounds. CARDIOVASCULAR: Regular rate. ABDOMEN: Soft, nontender. EXTREMITIES: With no pitting edema. He has necrosis of the glans penis. LABORATORY DATA: Reviewed. White count was , it is trending down to 25,000; hemoglobin is 11.0, platelets are 226. ABGs with a pH of 7.36, pCO2 of 45 and a pO2 of 90 on 28% FIO2. Chest x-ray is clear. IMPRESSION: 1. Sepsis syndrome. The etiology is not so obvious. It is not in the lungs. He probably has severe peripheral vascular disease resulting in necrosis of the glans penis. CTA of the abdomen is being scheduled. 2. Marked leukocytosis, secondary to sepsis 3. History of tobacco use in the past. 4. End-stage renal disease, on hemodialysis. 5. Hypotension/shock, secondary to a combination of hypovolemia and early sepsis. Blood pressure is now more stabilized and he did not require pressors. RECOMMENDATIONS: 1. From a pulmonary standpoint, he is doing reasonably well on 2 liters nasal cannula. 2. Continue broad-spectrum antibiotics. 3. Follow white cell count 4. Follow Infectious Disease recommendations. 5. CTA of the abdomen is being scheduled and we will follow the results. 6. Follow Vascular Surgery recommendations. 7. Discussed with RN. We will follow along with you. Critical care time 35 minutes. ROLY BOWIE MD DR: GORAN/[facility] JOB#: [id number] / [id number] MELVI
[2016-09-22] MEDS ORDERED: IV NORMAL SALINE 500ML BAG 500 ML IV ONE (12:00)
--- NOTE | 2016-09-22 12:10 | RAD ---
Bedside ultrasound guided Central Venous Catheter placement Indication: 61-year-old male ICU patient with sepsis and hypotension. Ultrasound-guided bedside central venous catheter insertion has been requested for IV antibiotics and for IV pressors. Anesthesia: Local only Sterility: All elements of maximal sterile barrier technique were utilized, including cap, mask, sterile gown, sterile gloves, large sterile sheet, appropriate hand hygiene, and 2% chlorhexidine for cutaneous antisepsis. Procedure: Informed consent was obtained from the patient's sister. This procedure was performed bedside in ICU. Preliminary ultrasound examination of left neck revealed wide patency of left internal jugular vein, which was documented with a single hard copy ultrasound image. Left neck was then prepped and draped in the usual sterile fashion, utilizing all elements of maximal sterile barrier technique, as described above. Using aseptic technique, local anesthesia, direct ultrasound guidance, and the micropuncture technique, successful entry was made into left internal jugular vein. The left IJ venostomy tract was then dilated and a 7 [place]ese triple lumen 20 cm power injectable CVC was easily advanced centrally over an angiographic guidewire. The CVC was then demonstrated to flush and aspirate normally, and was secured at the skin exit site using suture and sterile dressing. Patient tolerated the procedure well, without apparent complication. A STAT portable CXR was requested for CVC position. Impression: Successful, uneventful sono guided placement of left IJ power injectable 7 Taiwanese triple lumen 20 cm CVC, bedside in ICU, as described.
--- NOTE | 2016-09-22 12:24 | RAD ---
Indication peripheral arterial disease. Diminished pedal pulses. Axial images through the abdomen and pelvis were obtained. The abdominal imaging was targeted to the abdominal aorta. Imaging was continued on through the lower extremities targeted to the major arteries of the legs. MIP images were generated and reviewed as well as volume rendered images. Approximately 75 cc of Omnipaque 350 was administered. The liver is incompletely visualized but that portion of the caudal aspect of the liver which is seen appears unremarkable. The pancreas is not included on the study. The [place] kidneys are very small. No acute finding is seen in the visualized abdomen or pelvis. A significant soft tissue finding involving the legs is not seen. A significant bony finding is not seen. There is moderate plaquing associated with the abdominal aorta. There is no aneurysm. Both common iliac arteries are unremarkable. The common iliac arteries bifurcate unremarkably into their respective internal and external iliac vessels. Both external iliac arteries are widely patent and the common femoral arteries bilaterally are patent. On the right the common femoral artery bifurcates unremarkably into the superficial femoral artery and the deep femoral. Moderate plaquing is noted. Heavy plaquing is seen throughout the course of the superficial femoral artery with scattered areas of moderate stenosis. Occlusion or high-grade stenosis is not seen. Mild stenosis is seen involving the popliteal artery. The calf vessels are poorly evaluated on this examination secondary to their inherent small size and heavy calcification associated with these vessels. Moderate to severe disease associated with the calf vessels is not excluded on this study. There is likely at least some flow in the distal peroneal artery. On the left the common femoral artery bifurcates unremarkably into the superficial and deep femoral branches. There is moderate plaquing seen throughout the course of the superficial femoral artery but no high-grade stenosis is seen. Moderately severe stenosis is seen associated with a short segment of the popliteal artery. Similar to the contralateral side and for the same reasons the calf vessels are poorly evaluated. There is likely some flow at least in the peroneal artery. IMPRESSION: There are scattered areas of disease seen associated with both superficial femoral arteries and a short segment of at least moderate stenosis associated with the left popliteal artery. The calf vessels, bilaterally, are poorly evaluated on this examination. PQRS Compliance Statement: One or more of the following individualized dose reduction techniques were utilized for this examination: 1. Automated exposure control 2. Adjustment of the mA and/or kV according to patient size 3. Use of iterative reconstruction technique
[2016-09-22] MEDS: VANCOMYCIN PER PHARMACY MC PRN (13:23)
--- NOTE | 2016-09-22 13:23 | PDOC ---
CARDIO Progress Notes Date and Time Date of Service 09/22/2016 Time of Evaluation 1323 Subjective Subjective: No Chest Pain, No shortness of breath, No Palpitations Vitals Vitals Vital Signs Date Time Temp Pulse Resp B/P (MAP) Pulse Ox O2 Delivery O2 Flow Rate FiO2 09/22/16 13:05 112 12 105/64 (78) 100 Nasal Cannula 2.0 09/22/16 12:16 98.1 98.1 Weight Weight [ ] Input and Output Intake and Output Intake and Output 09/22/16 07:00 Intake Total 1250 ml Output Total 0 ml Balance 1250 ml Intake Oral 200 ml IV Total 1050 ml Output Urine Total 0 ml Laboratory Labs Laboratory Tests Test 09/21/16 18:30 09/21/16 21:00 09/21/16 23:41 09/22/16 00:35 Lactic Acid Level 1.8 mmol/L (0.4-2.0) Troponin I Quantitative 0.648 ng/mL (0.000-0.055) 0.665 ng/mL (0.000-0.055) Procalcitonin 21.86 ng/mL (0.00-0.10) O2 Saturation 96 % (92-99) Arterial Blood pH 7.36 (7.35-7.45) Arterial Blood pCO2 at Patient Temp 45 mmHg (35-46) Arterial Blood pO2 at Patient Temp 90 mmHg (65-108) Arterial Blood HCO3 25 mmol/L (21-28) Arterial Blood Base Excess -1 mmol/L (-3-3) FiO2 28 Glucose (Fingerstick) 111 mg/dL (70-99) Erythrocyte Sedimentation Rate 92 (0-15) Test 09/22/16 04:22 09/22/16 05:00 09/22/16 08:13 Glucose (Fingerstick) 99 mg/dL (70-99) White Blood Count 25.2 x10^3/uL (4.0-11.0) Red Blood Count 4.01 x10^6/uL (4.30-5.70) Hemoglobin 11.0 g/dL (13.0-17.5) Hematocrit 35.3 % (39.0-53.0) Mean Corpuscular Volume 88 fL (79-100) Mean Corpuscular Hemoglobin 27 pg (25-35) Mean Corpuscular Hemoglobin Concent 31 g/dL (31-37) Red Cell Distribution Width 15.7 % (11.5-14.5) Platelet Count 226 x10^3/uL (140-400) Neutrophils (%) (Auto) 92 % (31-73) Lymphocytes (%) (Auto) 3 % (24-48) Monocytes (%) (Auto) 5 % (0-9) Eosinophils (%) (Auto) 0 % (0-3) Basophils (%) (Auto) 0 % (0-3) Neutrophils # (Auto) 23.2 x10^3uL (1.8-7.7) Lymphocytes # (Auto) 0.8 x10^3/uL (1.0-4.8) Monocytes # (Auto) 1.2 x10^3/uL (0.0-1.1) Eosinophils # (Auto) 0.0 x10^3/uL (0.0-0.7) Basophils # (Auto) 0.1 x10^3/uL (0.0-0.2) Sodium Level 144 mmol/L (136-145) Potassium Level 4.4 mmol/L (3.5-5.1) Chloride Level 101 mmol/L (98-107) Carbon Dioxide Level 21 mmol/L (21-32) Anion Gap 22 (6-14) Blood Urea Nitrogen 44 mg/dL (8-26) Creatinine 5.8 mg/dL (0.7-1.3) Estimated GFR (Cockcroft-Gault) 12.1 Glucose Level 109 mg/dL (70-99) Lactic Acid Level 3.5 mmol/L (0.4-2.0) Calcium Level 10.3 mg/dL (8.5-10.1) Phosphorus Level 7.0 mg/dL (2.6-4.7) Magnesium Level 2.3 mg/dL (1.8-2.4) Troponin I Quantitative 0.834 ng/mL (0.000-0.055) Albumin 2.3 g/dL (3.4-5.0) Triglycerides Level 73 mg/dL (0-150) Cholesterol Level 96 mg/dL (0-200) LDL Cholesterol, Calculated 32 mg/dL (0-100) VLDL Cholesterol, Calculated 15 mg/dL (0-40) Non-HDL Cholesterol Calculated 47 mg/dL (0-129) HDL Cholesterol 49 mg/dL (40-60) Cholesterol/HDL Ratio 2.0 Ammonia < 10 mcmol/L (11-34) Microbiology Micro Microbiology 09/21/16 Gram Stain - Final, Complete Radiology Rad Impression CXR: A single view of the chest was obtained and is compared to an examination one day earlier. There has been interval placement of a left IJ catheter. The tip is appropriately positioned above the SVC right atrial junction. No complication is seen and specifically there is no evidence of pneumothorax. Heart size and pulmonary vessels are unchanged. An acute parenchymal infiltrate is not seen. Cardiac defibrillating lead is noted. IMPRESSION: Apart from placement of a left IJ catheter there has not been a significant change in the appearance of the chest Physical Exam Heart: S1S2, RRR, no thrills, no rubs, no gallops Assessment Assessment 1. sepsis with hypotension and tachycardia WBC ~ 30K POA; decreased to 25 was not given fluid resuscitation per sepsis protocol due to renal failure and use HD give 500 cc bolus; if BP remains low will need vasopressors abx per ID 2. NSTEMI, type II demand mediated echo with LVEF of 50%, LVH and DD; no [facility] records from indicate cath previously without significant coronary disease 3. non-ischemic cardiomyopathy LVEF previously about 40% on echo at - 2016 has [place]-[employer] subcutaneous ICD - will interrogate holding BB, ACEI, diuretic therapy due to hypotension 4. ESRD with HD per nephrology 6. encephalopathy improve BP = improved mentation 7. atrial fib by history likely etiology for use of DOAC ABIOLA YADAV APRN Sep 22, 2016 13:23
[2016-09-22] MEDS: AMINO AC 3%/ELECTROLYTE/GLYCER 1,000 ML IV SCH (14:10)
--- NOTE | 2016-09-22 14:10 | PDOC2 ---
NEUROLOGY CONSULT Date of Admission Date of Admission DATE: 09/22/16 TIME: 14:04 Reason for Consult Reason for Consult: Altered mental status Referring Physician Referring Physician: Dr. Haney Source Source: Chart review History of Present Illness History of Present Illness The patient is a 61-year-old right-handed male who had altered mental status at dialysis. His family has noticed a mental decline over the last several weeks. He is hypotensive now. There is no history of stroke, seizure, or head injury. Past Medical History Cardiovascular: AFIB, HTN Heme/Onc: Anemia NOS Renal/: Chronic renal failure Past Surgical History Past Surgical History: Pacemaker (/defibrillator), Other Family History Family History: No pertinent hx Social History Social History No tobacco or alcohol Current Medications Current Medications Current Medications Ondansetron HCl (Zofran) 4 mg PRN Q8HRS PRN IV NAUSEA/VOMITING; Start 09/21/16 at 15:00; Stop 09/21/16 at 16:55; Status DC Morphine Sulfate 2 mg PRN Q2HR PRN IV PAIN; Start 09/21/16 at 15:00; Stop at 14:59 Ciprofloxacin Lactate 200 ml @ 200 mls/hr Q24H IV Last administered on 17:54; Start 09/21/16 at 15:00 Magnesium Sulfate/ Dextrose 50 ml @ 25 mls/hr PRN DAILY PRN IV for Mag < 1.7 on am labs; Start 09/21/16 at 16:00 Sodium Chloride 500 ml @ 0 mls/hr QID PRN IV map < 65 Last administered on 06:13; Start 09/21/16 at 16:15 Ondansetron HCl (Zofran) 4 mg PRN Q6HRS PRN IV NAUSEA/VOMITING; Start 09/21/16 at 16:52; Stop 09/22/16 at 16:51 Acetaminophen (Tylenol) 650 mg PRN Q6HRS PRN PO fever; Start 09/21/16 at 17:00 Acetaminophen/ Hydrocodone Bitart (Lortab 5/325) 1 tab PRN TID PRN PO pain; Start 09/21/16 at 17:00 Heparin Sodium (Porcine) (Heparin Sq) 5,000 unit Q8HRS SQ Last administered on 09/22/16 06:18; Start 09/21/16 at 22:00 Norepinephrine Bitartrate 250 ml @ 0 mls/hr CONT PRN IV SEE I/O RECORD; Start 09/21/16 at 17:45 Piperacillin Sod/ Tazobactam Sod 2.25 gm/Sodium Chloride 50 ml @ 100 mls/hr Q8HRS IV Last administered on 09/22/16 06:18; Start 09/21/16 at 18:00 Vancomycin HCl (Vanco Per Pharmacy) 1 each PRN DAILY PRN MC SEE COMMENTS Last administered on 09/22/16 13:23; Start 09/21/16 at 17:45 Micafungin Sodium 100 mg/Dextrose 100 ml @ 100 mls/hr Q24H IV Last administered on 09/22/16 00:01; Start 09/21/16 at 21:00 Vancomycin HCl 1.5 gm/Sodium Chloride 500 ml @ 250 mls/hr 1X ONCE IV Last administered on 09/21/16 20:18; Start 09/21/16 at 19:00; Stop 09/21/16 at 20:59 ; Status DC Vancomycin HCl 1 each 1X ONCE MC ; Start 09/23/16 at 06:00; Stop 09/23/16 at 06: 01 Acetaminophen (Acetaminophen Supp) 650 mg PRN Q6HRS PRN CO MILD PAIN / TEMP; Start 09/22/16 at 00:30 Labetalol HCl (Normodyne) 10 mg PRN Q4HRS PRN IVP HYPERTENSION, SEE COMMENTS; Start 09/22/16 at 00:30 Amino Acids/ Glycerin/ Electrolytes 1,000 ml @ 80 mls/hr [id number] IV ; Start 09/22/16 at 08:45 Lidocaine/Sodium Bicarbonate (Buffered Lidocaine 1%) 3 ml 1X ONCE IJ Last administered on 09/22/16 09:29; Start 09/22/16 at 08:45; Stop 09/22/16 at 08:48; Status DC Heparin Sodium/ Sodium Chloride 60 unit 1X ONCE IV Last administered on 09:30; Start 09/22/16 at 08:45; Stop 09/22/16 at 08:48; Status DC Iohexol (Omnipaque 350 Mg/ml) 95 ml 1X ONCE IV Last administered on 09/22/16 11:05; Start 09/22/16 at 11:00; Stop 09/22/16 at 11:01; Status DC Info (Do NOT chart on this entry -- for MONITORING) 1 each PRN DAILY PRN MC SEE COMMENTS; Start 09/22/16 at 11:00; Stop 09/24/16 at 10:59 Active Scripts Active Bactrim Ds Tablet (Sulfamethoxazole/Trimethoprim) 1 Each Tablet 1 Tab PO BID [place] 5-325 Tablet (Acetaminophen/Hydrocodone Bitart) 1 Each Tablet 1-2 Tab PO Q4-6HRS Reported Dulcolax (Bisacodyl) 10 Mg Supp.rect 10 Mg RC PRN DAILY PRN Oxycontin (Oxycodone HCl) 10 Mg Tab.er.12h 20 Mg PO BID Eliquis (Apixaban) 5 Mg Tablet 5 Mg PO BID Ondansetron Hcl 4 Mg Tablet 1 Tab PO PRN Q6HRS PRN Oxycodone Hcl 15 Mg Tablet 15 Mg PO Q4HRS PRN Acetaminophen 500 Mg Tablet 1 Tab PO Q4HRS PRN Ativan (Lorazepam) 0.5 Mg Tablet 0.5 Mg PO TID Senokot (Sennosides) 8.6 Mg Tablet 2 Tab PO BID Lipitor (Atorvastatin Calcium) 10 Mg Tablet 1 Tab PO QHS Fleet Enema (Na Phos,M-B/Na Phos,Di-Ba) 133 Ml Enema 133 Ml RC DAILY PRN Milk Of Magnesia (Magnesium Hydroxide) 2,400 Mg/10 Ml Oral.susp 2,400 Mg PO Melatonin 3 Mg Tablet 1 Tab PO QHS Vitamin B-12 (Cyanocobalamin (Vitamin B-12)) 1,000 Mcg Tablet 1 Tab PO DAILY Hydroxyzine Hcl 25 Mg Tablet 25 Mg PO QID PRN Fosrenol (Lanthanum Carbonate) 1,000 Mg Tab.chew 1,000 Mg PO TIDAC Aspir 81 (Aspirin) 81 Mg Tablet.dr 1 Tab PO DAILY Polyethylene Glycol 3350 255 Gm Powder 17 Gm PO DAILY Protonix (Pantoprazole Sodium) 40 Mg Tablet.dr 1 Tab PO DAILY Loratadine 10 Mg Tablet 1 Tab PO DAILY Renvela (Sevelamer Carbonate) 800 Mg Tablet 1 Tab PO TID Lidocaine Hcl Viscous (Lidocaine Hcl) 20 Mg/1 Ml Solution 5 Ml PO BID Aranesp Syringe (Darbepoetin [place] In Polysorbat) 60 Mcg/0.3 Ml Disp.syrin 60 Mcg SQ WEEKLY DURAGESIC 25mcg/hr (Fentanyl) 1 Each Patch.td72 1 Patch TP Q3DAYS Gabapentin 300 Mg Capsule 300 Mg PO TID Coreg (Carvedilol) 12.5 Mg Tablet 1 Tab PO BID Coreg (Carvedilol) 6.25 Mg Tablet 1 Tab PO BID Sensipar (Cinacalcet Hcl) 30 Mg Tablet 2 Tab PO DAILY Sertraline Hcl 25 Mg Tablet 25 Mg PO DAILY Allergies Allergies: Coded Allergies: No Known Drug Allergies (Unverified , 04/25/16) ROS Review of System Limited due to patient's mental condition, but he denies fevers, chills, weight loss, dyspnea, angina all stop Physical Exam Physical Examination PHYSICAL EXAMINATION: Vital signs: see above. General appearance is normal and in no acute distress. HEENT: Normocephalic and nontraumatic. Eyes, nose, ears, and throat are unremarkable. Neck is supple. No lymphadenopathy. No bruits are heard over the carotid artery. No crepitus. NEUROLOGIC: Initially when I speak to him he knows the name, date, location, but his blood pressure is falling in the 70s systolic, and he is less responsive. I do notify the nurse who is giving a fluid bolus and will next start Levophed if necessary. Cranial nerves examination shows full [place] to threat, equally reactive pupils, and intact extraocular movements. There is no facial asymmetry. Reflexes are 1+ with flexor plantar responses. Strength is 3/5. There are no cerebellar or sensory changes. Vitals VITALS Vital Signs Date Time Temp Pulse Resp B/P (MAP) Pulse Ox O2 Delivery O2 Flow Rate FiO2 09/22/16 13:05 112 12 105/64 (78) 100 Nasal Cannula 2.0 09/22/16 12:16 98.1 98.1 Labs Labs Laboratory Tests Test 09/21/16 10:50 09/21/16 18:30 09/21/16 21:00 09/21/16 23:41 White Blood Count 30.7 x10^3/uL (4.0-11.0) Red Blood Count 4.16 x10^6/uL (4.30-5.70) Hemoglobin 11.4 g/dL (13.0-17.5) Hematocrit 36.3 % (39.0-53.0) Mean Corpuscular Volume 87 fL (79-100) Mean Corpuscular Hemoglobin 27 pg (25-35) Mean Corpuscular Hemoglobin Concent 31 g/dL (31-37) Red Cell Distribution Width 15.6 % (11.5-14.5) Platelet Count 252 x10^3/uL (140-400) Neutrophils (%) (Auto) 89 % (31-73) Lymphocytes (%) (Auto) 3 % (24-48) Monocytes (%) (Auto) 7 % (0-9) Eosinophils (%) (Auto) 0 % (0-3) Basophils (%) (Auto) 0 % (0-3) Neutrophils # (Auto) 27.5 x10^3uL (1.8-7.7) Lymphocytes # (Auto) 1.0 x10^3/uL (1.0-4.8) Monocytes # (Auto) 2.2 x10^3/uL (0.0-1.1) Eosinophils # (Auto) 0.0 x10^3/uL (0.0-0.7) Basophils # (Auto) 0.0 x10^3/uL (0.0-0.2) Segmented Neutrophils % 84 % (35-66) Band Neutrophils % 9 % (0-9) Monocytes % 7 % (0-10) Platelet Estimate Adequate (ADEQUATE) Polychromasia Slight Poikilocytosis Slight Anisocytosis Slight Target Cells Few Sodium Level 142 mmol/L (136-145) Potassium Level 4.2 mmol/L (3.5-5.1) Chloride Level 99 mmol/L (98-107) Carbon Dioxide Level 27 mmol/L (21-32) Anion Gap 16 (6-14) Blood Urea Nitrogen 27 mg/dL (8-26) Creatinine 4.9 mg/dL (0.7-1.3) Estimated GFR (Cockcroft-Gault) 14.7 BUN/Creatinine Ratio 6 (6-20) Glucose Level 143 mg/dL (70-99) Lactic Acid Level 3.4 mmol/L (0.4-2.0) 1.8 mmol/L (0.4-2.0) Calcium Level 10.4 mg/dL (8.5-10.1) Magnesium Level 2.1 mg/dL (1.8-2.4) Total Bilirubin 0.4 mg/dL (0.2-1.0) Aspartate Amino Transf (AST/SGOT) 33 U/L (15-37) Alanine Aminotransferase (ALT/SGPT) 16 U/L (16-63) Alkaline Phosphatase 124 U/L (46-116) Creatine Kinase 419 U/L (39-308) Creatine Kinase MB (Mass) 4.5 ng/mL (0.0-3.6) Creatine Kinase MB Relative Index 1.1 % (0-4) Troponin I Quantitative 0.620 ng/mL (0.000-0.055) 0.648 ng/mL (0.000-0.055) [id number]-Type Natriuretic Peptide > 78777 pg/mL (0-124) Total Protein 8.3 g/dL (6.4-8.2) Albumin 2.5 g/dL (3.4-5.0) Albumin/Globulin Ratio 0.4 (1.0-1.7) Thyroid Stimulating Hormone (TSH) 1.281 uIU/mL (0.358-3.74) Procalcitonin 21.86 ng/mL (0.00-0.10) O2 Saturation 96 % (92-99) Arterial Blood pH 7.36 (7.35-7.45) Arterial Blood pCO2 at Patient Temp 45 mmHg (35-46) Arterial Blood pO2 at Patient Temp 90 mmHg (65-108) Arterial Blood HCO3 25 mmol/L (21-28) Arterial Blood Base Excess -1 mmol/L (-3-3) FiO2 28 Glucose (Fingerstick) 111 mg/dL (70-99) Test 09/22/16 00:35 09/22/16 04:22 09/22/16 05:00 09/22/16 08:13 Erythrocyte Sedimentation Rate 92 (0-15) Troponin I Quantitative 0.665 ng/mL (0.000-0.055) 0.834 ng/mL (0.000-0.055) Glucose (Fingerstick) 99 mg/dL (70-99) White Blood Count 25.2 x10^3/uL (4.0-11.0) Red Blood Count 4.01 x10^6/uL (4.30-5.70) Hemoglobin 11.0 g/dL (13.0-17.5) Hematocrit 35.3 % (39.0-53.0) Mean Corpuscular Volume 88 fL (79-100) Mean Corpuscular Hemoglobin 27 pg (25-35) Mean Corpuscular Hemoglobin Concent 31 g/dL (31-37) Red Cell Distribution Width 15.7 % (11.5-14.5) Platelet Count 226 x10^3/uL (140-400) Neutrophils (%) (Auto) 92 % (31-73) Lymphocytes (%) (Auto) 3 % (24-48) Monocytes (%) (Auto) 5 % (0-9) Eosinophils (%) (Auto) 0 % (0-3) Basophils (%) (Auto) 0 % (0-3) Neutrophils # (Auto) 23.2 x10^3uL (1.8-7.7) Lymphocytes # (Auto) 0.8 x10^3/uL (1.0-4.8) Monocytes # (Auto) 1.2 x10^3/uL (0.0-1.1) Eosinophils # (Auto) 0.0 x10^3/uL (0.0-0.7) Basophils # (Auto) 0.1 x10^3/uL (0.0-0.2) Sodium Level 144 mmol/L (136-145) Potassium Level 4.4 mmol/L (3.5-5.1) Chloride Level 101 mmol/L (98-107) Carbon Dioxide Level 21 mmol/L (21-32) Anion Gap 22 (6-14) Blood Urea Nitrogen 44 mg/dL (8-26) Creatinine 5.8 mg/dL (0.7-1.3) Estimated GFR (Cockcroft-Gault) 12.1 Glucose Level 109 mg/dL (70-99) Lactic Acid Level 3.5 mmol/L (0.4-2.0) Calcium Level 10.3 mg/dL (8.5-10.1) Phosphorus Level 7.0 mg/dL (2.6-4.7) Magnesium Level 2.3 mg/dL (1.8-2.4) Albumin 2.3 g/dL (3.4-5.0) Triglycerides Level 73 mg/dL (0-150) Cholesterol Level 96 mg/dL (0-200) LDL Cholesterol, Calculated 32 mg/dL (0-100) VLDL Cholesterol, Calculated 15 mg/dL (0-40) Non-HDL Cholesterol Calculated 47 mg/dL (0-129) HDL Cholesterol 49 mg/dL (40-60) Cholesterol/HDL Ratio 2.0 Ammonia < 10 mcmol/L (11-34) Laboratory Tests Test 09/21/16 18:30 09/21/16 21:00 09/21/16 23:41 09/22/16 00:35 Lactic Acid Level 1.8 mmol/L (0.4-2.0) Troponin I Quantitative 0.648 ng/mL (0.000-0.055) 0.665 ng/mL (0.000-0.055) Procalcitonin 21.86 ng/mL (0.00-0.10) O2 Saturation 96 % (92-99) Arterial Blood pH 7.36 (7.35-7.45) Arterial Blood pCO2 at Patient Temp 45 mmHg (35-46) Arterial Blood pO2 at Patient Temp 90 mmHg (65-108) Arterial Blood HCO3 25 mmol/L (21-28) Arterial Blood Base Excess -1 mmol/L (-3-3) FiO2 28 Glucose (Fingerstick) 111 mg/dL (70-99) Erythrocyte Sedimentation Rate 92 (0-15) Test 09/22/16 04:22 09/22/16 05:00 09/22/16 08:13 Glucose (Fingerstick) 99 mg/dL (70-99) White Blood Count 25.2 x10^3/uL (4.0-11.0) Red Blood Count 4.01 x10^6/uL (4.30-5.70) Hemoglobin 11.0 g/dL (13.0-17.5) Hematocrit 35.3 % (39.0-53.0) Mean Corpuscular Volume 88 fL (79-100) Mean Corpuscular Hemoglobin 27 pg (25-35) Mean Corpuscular Hemoglobin Concent 31 g/dL (31-37) Red Cell Distribution Width 15.7 % (11.5-14.5) Platelet Count 226 x10^3/uL (140-400) Neutrophils (%) (Auto) 92 % (31-73) Lymphocytes (%) (Auto) 3 % (24-48) Monocytes (%) (Auto) 5 % (0-9) Eosinophils (%) (Auto) 0 % (0-3) Basophils (%) (Auto) 0 % (0-3) Neutrophils # (Auto) 23.2 x10^3uL (1.8-7.7) Lymphocytes # (Auto) 0.8 x10^3/uL (1.0-4.8) Monocytes # (Auto) 1.2 x10^3/uL (0.0-1.1) Eosinophils # (Auto) 0.0 x10^3/uL (0.0-0.7) Basophils # (Auto) 0.1 x10^3/uL (0.0-0.2) Sodium Level 144 mmol/L (136-145) Potassium Level 4.4 mmol/L (3.5-5.1) Chloride Level 101 mmol/L (98-107) Carbon Dioxide Level 21 mmol/L (21-32) Anion Gap 22 (6-14) Blood Urea Nitrogen 44 mg/dL (8-26) Creatinine 5.8 mg/dL (0.7-1.3) Estimated GFR (Cockcroft-Gault) 12.1 Glucose Level 109 mg/dL (70-99) Lactic Acid Level 3.5 mmol/L (0.4-2.0) Calcium Level 10.3 mg/dL (8.5-10.1) Phosphorus Level 7.0 mg/dL (2.6-4.7) Magnesium Level 2.3 mg/dL (1.8-2.4) Troponin I Quantitative 0.834 ng/mL (0.000-0.055) Albumin 2.3 g/dL (3.4-5.0) Triglycerides Level 73 mg/dL (0-150) Cholesterol Level 96 mg/dL (0-200) LDL Cholesterol, Calculated 32 mg/dL (0-100) VLDL Cholesterol, Calculated 15 mg/dL (0-40) Non-HDL Cholesterol Calculated 47 mg/dL (0-129) HDL Cholesterol 49 mg/dL (40-60) Cholesterol/HDL Ratio 2.0 Ammonia < 10 mcmol/L (11-34) Images Images Axial noncontrast images through the head were obtained. Note is made of a previous examination 12/03/2007. The calvarium appears unremarkable. The visualized paranasal sinuses appear normal. There are multiple areas of increased density, compatible with areas of calcification, seen in the subcutaneous soft tissues. There is no subdural or epidural hematoma. There is no mass or midline shift. No hemorrhage is seen. No acute finding is apparent. IMPRESSION: No acute finding seen in the head Assessment/Plan Assessment/Plan Impression: Clearly metabolic encephalopathy with a sepsis syndrome as when his blood pressure was more normal, he was lucid without any focal findings. Recommendations: No need for additional neurological studies at this point Treatment of medical conditions. Thank you for letting me help with the patient's care. JESS FINE MD Sep 22, 2016 14:10
[2016-09-22] MEDS: CIPROFLOXACIN 400MG PREMIX 200 ML IV SCH (16:02)
[2016-09-22] MEDS ORDERED: TOBRAMYCIN PER PHARMACY MC PRN (16:45)
[2016-09-22] MEDS ORDERED: TOBRAMYCIN SULFATE IV ONE (17:00)
[2016-09-22] MEDS ORDERED: NORMAL SALINE IV ONE (17:00)
--- NOTE | 2016-09-22 17:07 | PDOC2 ---
PALLIATIVE CARE Palliative Care Note Palliative Care Consult requested by Dr. Haney to address code status and near end of life care. Diagnosis; Sepsis--wounds on penis, ESRD on hemodialysis; encephalopathy, NSTMI , AICD; Patient with intermittent periods of lethargy--not answering questions. Unable to make complicated decisions Spoke with daughters Erika, Homer, Merary; per phone dtr=Ena and patient's sister Suzanna. Reviewed current medical condition as above. Reviewed results of Labs and imaging including CT scan. EF 35-40%; BC+ Family shared patient has been declining over the last 6 months--more rapidly over the last 6 weeks--since he was in [facility] They shared that patient has been saying he was tired. Has fallen several times and decline in ADL's Patient has no AD or has voiced his wishes about end of life care. Discussed options for care: Stop dialysis and aggressive care and focus on comfort. vs limit aggressive care vs aggressive care Discussed Code Status; Family requests DNR/DNI. Understand without this attempt he likely would . They are concerned about risk of breaking ribs and further injury with CPR and if he survives to suffer more without a quality of life. Family would like to try dialysis again to see if he would tolerate it. They understands that he may not tolerate treatment because of low blood pressure. Family wants to continue AICD ---will have further discussion tomorrow about AICD and dialysis. They have extended family that needs to see him before making any other decisions Discussed options for comfort care. HOme with Hospice vs half-way with hospice vs IP hospice house. Family will talk with other members and if decision to focus on comfort will make that decision as to where this care should be provided. Plan: DNR/DNI; will continue AICD Dialysis---will have further discussion tomorrow and how aggressive care should be. AZAR KHAN Sep 22, 2016 17:07
[2016-09-22] MEDS ORDERED: TOBRAMYCIN PER PHARMACY MC ONE (17:15)
--- NOTE | 2016-09-22 18:18 | PDOC ---
Provider Note Provider Note Urology: Consult dictated. AUDI MONTEMAYOR DO Sep 22, 2016 18:18
[2016-09-23] VITALS (24 sets, daily range): BP systolic 87–164; BP diastolic 51–87
--- NOTE | 2016-09-23 00:56 | CONS ---
DATE OF CONSULTATION: 09/22/2016 INFECTIOUS DISEASE CONSULTATION ROOM: ICU 14 REQUESTING PHYSICIAN: Mora Perry for Cardiology. REASON FOR CONSULTATION: Sepsis. HISTORY OF PRESENT ILLNESS: The patient is a 61-year-old -[place] gentleman, currently he is somewhat encephalopathic, unable to provide any past medical history, history of present illness or review of systems. This obtained mainly in discussions with the nurse as well as reviewing the chart. The patient has a history of chronic kidney disease, apparently on dialysis. He had an "episode," it was felt that he had a syncopal type episode. He was brought to [facility]. He had a white count of 30,000. He may have had a non-STEMI as well. He was admitted to the hospital. There was a fall that he had been somewhat hypotensive. Echo was performed and revealed that he had EF of approximately 50%. He was given a fluid bolus. He did not respond to the fluid bolus and still remained somewhat encephalopathic. At that time, I ordered blood and sputum cultures as I was informed that he was producing some sputum as well as lactic acid. I instituted micafungin, vancomycin and Zosyn as I was informed that he has some necrosis of the tip of the glans of his penis. Our imaging recommended to transfer to the intensive care unit and consult the firer low pressure. Overnight, the patient has had a temperature of 102.6 axillary. White blood cell count this morning is somewhat improved to 25.9, but again he is arousable, but he does not answer questions. PAST MEDICAL HISTORY: Positive for atrial fibrillation, hypertension, chronic kidney disease on hemodialysis. PAST SURGICAL HISTORY: Positive for a pacemaker, left knee and left shoulder surgery, left eye enucleation, AV fistula on the right . REVIEW OF SYSTEMS: Unobtainable. SOCIAL HISTORY: Unknown. FAMILY HISTORY: Unknown. ALLERGIES: No known drug allergies. CURRENT MEDICATIONS: Include he was given Cipro, micafungin, piperacillin-tazobactam, vancomycin. Other meds are available and reviewed in the chart. PHYSICAL EXAMINATION: VITAL SIGNS: T-max 102.6, currently 99.3, pulse 93, respirations 13, blood pressure currently 71/47, satting 100% on 2 liters. CONSTITUTIONAL: He is alert but he focuses but does not answer too many questions. He is somewhat lethargic. He has normal conjunctivae. He has prosthesis on his left eye. HEENT: Oral cavity, pharynx was dry. NECK: Supple, no JVD, does not have any murmurs in his neck. LUNGS: Decreased at bases. HEART: S1, S2, no gross murmur. ABDOMEN: Soft, nontender, nondistended with positive bowel sounds. EXTREMITIES: Without clubbing, cyanosis or gross edema. His extremities are cool to touch. He has a fistula in the right upper extremity without signs of any complications. SKIN: Otherwise, cool also. He has no rash. The glans of his penis is some necrotic. LABORATORY DATA: White count 25.2, hemoglobin 11, platelets 226, neutrophils 92, lymphs 3, sed rate is 92, creatinine 5.1, glucose 109. Troponin was elevated. Normal liver function study tests on arrival. IMAGING DATA: CT scan of the head did not show any acute process. Chest x-ray, no acute findings. Abdominal scrotal ultrasound diminished blood flow. He does have a history of an arterial Doppler in May shows no flow in the left peroneal and anterior tibial artery. IMPRESSION: 1. Fever. 2. Sepsis present on admission. 3. Encephalopathy. 4. Necrosis of the glans. 5. Chronic kidney disease on hemodialysis. 6. Peripheral arterial disease. 7. Non-STEMI. RECOMMENDATIONS: As for now, continue antibiotics. We will add ammonia level this morning. Follow up labs and cultures, await urological evaluation. We will consult Vascular with his cool extremity, squamous necrosis previous CT scan and also order an aortogram. If the mental status did not improve, may need an LP or neuro evaluation. This was discussed with Dr. Orr, Dr. Haney and . Thank you for allowing me to participate in the patient's care. If you have any further concerns or questions, please do not hesitate to contact me. I spent 35 minutes of critical care time. LORI SOLIMAN MD DR: MEHUL/[facility] JOB#: [id number] / [id number]
[2016-09-23] MEDS: AMINO AC 3%/ELECTROLYTE/GLYCER 1,000 ML IV SCH ×4 (02:08→23:18)
[2016-09-23] MEDS: IV NORMAL SALINE 500ML BAG 500 ML IV PRN (04:05)
[2016-09-23 05:47] LABS: BASO # 0.1 x10^3/uL (0.0-0.2); BASO % 0 % (0-3); EOS % 1 % (0-3); HEMATOCRIT 30.1 % (39.0-53.0); HEMOGLOBIN 9.6 g/dL (13.0-17.5); LYMPH # 0.4 x10^3/uL (1.0-4.8); LYMPH % 2 % (24-48); MEAN CORPUSCULAR HEMOGLOBIN 27 pg (25-35); MEAN CORPUSCULAR HGB CONC 32 g/dL (31-37); MEAN CORPUSCULAR VOLUME 86 fL (79-100); MONO % 7 % (0-9); NEUT % 91 % (31-73); PLATELET COUNT 223 x10^3/uL (140-400); RED CELL DISTRIBUTION WIDTH 15.5 % (11.5-14.5); WHITE BLOOD COUNT 24.6 x10^3/uL (4.0-11.0)
[2016-09-23] MEDS: PIPERACILLIN/TAZOBACTAM 2.25 GM in IV NORMAL SALINE 50ML 50 ML IV SCH ×3 (05:51→20:56)
[2016-09-23] MEDS ORDERED: VANCOMYCIN RANDOM LEVEL. MC ONE (06:00)
[2016-09-23] MEDS: HEPARIN PF for SUB-Q USE 5,000 UNIT/0.5 ML VIAL. SQ SCH ×3 (06:10→20:57)
[2016-09-23 06:13] LABS: ALBUMIN 1.6 g/dL (3.4-5.0); CALCIUM 9.4 mg/dL (8.5-10.1); GFR 11.6; POTASSIUM 4.8 mmol/L (3.5-5.1)
--- NOTE | 2016-09-23 09:36 | PDOC ---
Infectious Disease Note Subjective Subjective Transferred to ICU yesterday. Fever 101.6 Denies pain, N/V PPN Supplemental O2 3LNC Soft stools ROS ROS Limited Vital Sign Vital Signs Vital Signs Date Time Temp Pulse Resp B/P (MAP) Pulse Ox O2 Delivery O2 Flow Rate FiO2 09/23/16 07:27 86 10 96/58 (71) 100 Nasal Cannula 2.0 09/23/16 04:00 101.6 101.6 Physical Exam PHYSICAL EXAM GENERAL: NAD HEENT: Oral cavity dry NECK: Supple LUNGS: Clear HEART: S1S2, regular. AICD (left lateral chest) ABD: ND, BS present, soft, NT EXT: No edema, no cyanosis. RUE AV fistula. 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 glans penis some necrosis-tender [facility]. (09/22). clean Labs Lab Laboratory Tests Test 09/23/16 05:20 White Blood Count 24.6 x10^3/uL (4.0-11.0) Red Blood Count 3.50 x10^6/uL (4.30-5.70) Hemoglobin 9.6 g/dL (13.0-17.5) Hematocrit 30.1 % (39.0-53.0) Mean Corpuscular Volume 86 fL (79-100) Mean Corpuscular Hemoglobin 27 pg (25-35) Mean Corpuscular Hemoglobin Concent 32 g/dL (31-37) Red Cell Distribution Width 15.5 % (11.5-14.5) Platelet Count 223 x10^3/uL (140-400) Neutrophils (%) (Auto) 91 % (31-73) Lymphocytes (%) (Auto) 2 % (24-48) Monocytes (%) (Auto) 7 % (0-9) Eosinophils (%) (Auto) 1 % (0-3) Basophils (%) (Auto) 0 % (0-3) Neutrophils # (Auto) 22.2 x10^3uL (1.8-7.7) Lymphocytes # (Auto) 0.4 x10^3/uL (1.0-4.8) Monocytes # (Auto) 1.6 x10^3/uL (0.0-1.1) Eosinophils # (Auto) 0.2 x10^3/uL (0.0-0.7) Basophils # (Auto) 0.1 x10^3/uL (0.0-0.2) Sodium Level 135 mmol/L (136-145) Potassium Level 4.8 mmol/L (3.5-5.1) Chloride Level 96 mmol/L (98-107) Carbon Dioxide Level 20 mmol/L (21-32) Anion Gap 19 (6-14) Blood Urea Nitrogen 58 mg/dL (8-26) Creatinine 6.0 mg/dL (0.7-1.3) Estimated GFR (Cockcroft-Gault) 11.6 Glucose Level 138 mg/dL (70-99) Calcium Level 9.4 mg/dL (8.5-10.1) Phosphorus Level 6.0 mg/dL (2.6-4.7) Magnesium Level 2.1 mg/dL (1.8-2.4) Albumin 1.6 g/dL (3.4-5.0) Random Vancomycin Level 19.9 mcg/mL CT ANGIO ABD ILEO/FEMOR RUNOFF IMPRESSION: There are scattered areas of disease seen associated with both superficial femoral arteries and a short segment of at least moderate stenosis associated with the left popliteal artery. The calf vessels, bilaterally, are poorly evaluated on this examination. Micro BLOOD CULTURE Final GRAM NEGATIVE RODS, IN 1 OF 2 BOTTLES, ONE SET DRAWN. Objective Assessment Fever. Sepsis, POA. GNR Encephalopathy. Necrosis of the glans. Chronic kidney disease on hemodialysis. Peripheral arterial disease. Non-STEMI. Plan Plan of Care Vanc, Zosyn, Micafungin Tobra time one dose, 09/22. Vanc trough 19.9 Ammonia level <10 F/u labs Await GNR ID Critically ill Attending Co-Sign The patient was seen and interviewed as well as examined at the bedside. The chart was reviewed. The case was discussed. Agree with the plan of care. SANDRA LUNDY APRN Sep 23, 2016 09:36 EMMA ESTEBAN MD Sep 23, 2016 14:22
--- NOTE | 2016-09-23 10:04 | PDOC ---
PROGRESS NOTES Assessment Problems Medical Problems: (1) Acute electrocardiogram changes Status: Acute (2) Open wound of penis Status: Acute (3) Sepsis Status: Acute Metabolic encephalopathy with a sepsis syndrome Plan No need for additional neurological studies at this point Treatment of medical conditions. Perhaps taking a more palliative approach Subjective None Objective Vital Signs Date Time Temp Pulse Resp B/P (MAP) Pulse Ox O2 Delivery O2 Flow Rate FiO2 09/23/16 07:27 86 10 96/58 (71) 100 Nasal Cannula 2.0 09/23/16 04:00 101.6 101.6 Intake and Output 09/23/16 07:00 Intake Total 3154.6 ml Output Total 0 ml Balance 3154.6 ml Intake Oral 240 ml IV Total 2914.6 ml Output Urine Total 0 ml # Bowel Movements 6 PHYSICAL EXAM Lethargic. Oriented to person. PERRL. EOMI. CN: no focal findings. Muscle tone: normal. Muscle strength: Moves all extremities DTR: 0+ Plantar reflex: flexor Gait: not examined in bed. Sensory exam: no abnormal findings. No cerebellar signs elicited. Review of Relevant I have reviewed the following items parvin (where applicable) has been applied. Labs Laboratory Tests Test 09/21/16 10:50 09/21/16 18:30 09/21/16 20:00 09/21/16 21:00 White Blood Count 30.7 x10^3/uL (4.0-11.0) Red Blood Count 4.16 x10^6/uL (4.30-5.70) Hemoglobin 11.4 g/dL (13.0-17.5) Hematocrit 36.3 % (39.0-53.0) Mean Corpuscular Volume 87 fL (79-100) Mean Corpuscular Hemoglobin 27 pg (25-35) Mean Corpuscular Hemoglobin Concent 31 g/dL (31-37) Red Cell Distribution Width 15.6 % (11.5-14.5) Platelet Count 252 x10^3/uL (140-400) Neutrophils (%) (Auto) 89 % (31-73) Lymphocytes (%) (Auto) 3 % (24-48) Monocytes (%) (Auto) 7 % (0-9) Eosinophils (%) (Auto) 0 % (0-3) Basophils (%) (Auto) 0 % (0-3) Neutrophils # (Auto) 27.5 x10^3uL (1.8-7.7) Lymphocytes # (Auto) 1.0 x10^3/uL (1.0-4.8) Monocytes # (Auto) 2.2 x10^3/uL (0.0-1.1) Eosinophils # (Auto) 0.0 x10^3/uL (0.0-0.7) Basophils # (Auto) 0.0 x10^3/uL (0.0-0.2) Segmented Neutrophils % 84 % (35-66) Band Neutrophils % 9 % (0-9) Monocytes % 7 % (0-10) Platelet Estimate Adequate (ADEQUATE) Polychromasia Slight Poikilocytosis Slight Anisocytosis Slight Target Cells Few Sodium Level 142 mmol/L (136-145) Potassium Level 4.2 mmol/L (3.5-5.1) Chloride Level 99 mmol/L (98-107) Carbon Dioxide Level 27 mmol/L (21-32) Anion Gap 16 (6-14) Blood Urea Nitrogen 27 mg/dL (8-26) Creatinine 4.9 mg/dL (0.7-1.3) Estimated GFR (Cockcroft-Gault) 14.7 BUN/Creatinine Ratio 6 (6-20) Glucose Level 143 mg/dL (70-99) Lactic Acid Level 3.4 mmol/L (0.4-2.0) 1.8 mmol/L (0.4-2.0) Calcium Level 10.4 mg/dL (8.5-10.1) Magnesium Level 2.1 mg/dL (1.8-2.4) Total Bilirubin 0.4 mg/dL (0.2-1.0) Aspartate Amino Transf (AST/SGOT) 33 U/L (15-37) Alanine Aminotransferase (ALT/SGPT) 16 U/L (16-63) Alkaline Phosphatase 124 U/L (46-116) Creatine Kinase 419 U/L (39-308) Creatine Kinase MB (Mass) 4.5 ng/mL (0.0-3.6) Creatine Kinase MB Relative Index 1.1 % (0-4) Troponin I Quantitative 0.620 ng/mL (0.000-0.055) 0.648 ng/mL (0.000-0.055) WE-Xuy-[id number]-Type Natriuretic Peptide > 54390 pg/mL (0-124) Total Protein 8.3 g/dL (6.4-8.2) Albumin 2.5 g/dL (3.4-5.0) Albumin/Globulin Ratio 0.4 (1.0-1.7) Thyroid Stimulating Hormone (TSH) 1.281 uIU/mL (0.358-3.74) Procalcitonin 21.86 ng/mL (0.00-0.10) Nasal Screen MRSA (PCR) Negative (Negative) O2 Saturation 96 % (92-99) Arterial Blood pH 7.36 (7.35-7.45) Arterial Blood pCO2 at Patient Temp 45 mmHg (35-46) Arterial Blood pO2 at Patient Temp 90 mmHg (65-108) Arterial Blood HCO3 25 mmol/L (21-28) Arterial Blood Base Excess -1 mmol/L (-3-3) FiO2 28 Test 09/21/16 23:41 09/22/16 00:35 09/22/16 04:22 09/22/16 05:00 Glucose (Fingerstick) 111 mg/dL (70-99) 99 mg/dL (70-99) Erythrocyte Sedimentation Rate 92 (0-15) Troponin I Quantitative 0.665 ng/mL (0.000-0.055) 0.834 ng/mL (0.000-0.055) White Blood Count 25.2 x10^3/uL (4.0-11.0) Red Blood Count 4.01 x10^6/uL (4.30-5.70) Hemoglobin 11.0 g/dL (13.0-17.5) Hematocrit 35.3 % (39.0-53.0) Mean Corpuscular Volume 88 fL (79-100) Mean Corpuscular Hemoglobin 27 pg (25-35) Mean Corpuscular Hemoglobin Concent 31 g/dL (31-37) Red Cell Distribution Width 15.7 % (11.5-14.5) Platelet Count 226 x10^3/uL (140-400) Neutrophils (%) (Auto) 92 % (31-73) Lymphocytes (%) (Auto) 3 % (24-48) Monocytes (%) (Auto) 5 % (0-9) Eosinophils (%) (Auto) 0 % (0-3) Basophils (%) (Auto) 0 % (0-3) Neutrophils # (Auto) 23.2 x10^3uL (1.8-7.7) Lymphocytes # (Auto) 0.8 x10^3/uL (1.0-4.8) Monocytes # (Auto) 1.2 x10^3/uL (0.0-1.1) Eosinophils # (Auto) 0.0 x10^3/uL (0.0-0.7) Basophils # (Auto) 0.1 x10^3/uL (0.0-0.2) Sodium Level 144 mmol/L (136-145) Potassium Level 4.4 mmol/L (3.5-5.1) Chloride Level 101 mmol/L (98-107) Carbon Dioxide Level 21 mmol/L (21-32) Anion Gap 22 (6-14) Blood Urea Nitrogen 44 mg/dL (8-26) Creatinine 5.8 mg/dL (0.7-1.3) Estimated GFR (Cockcroft-Gault) 12.1 Glucose Level 109 mg/dL (70-99) Lactic Acid Level 3.5 mmol/L (0.4-2.0) Calcium Level 10.3 mg/dL (8.5-10.1) Phosphorus Level 7.0 mg/dL (2.6-4.7) Magnesium Level 2.3 mg/dL (1.8-2.4) Albumin 2.3 g/dL (3.4-5.0) Triglycerides Level 73 mg/dL (0-150) Cholesterol Level 96 mg/dL (0-200) LDL Cholesterol, Calculated 32 mg/dL (0-100) VLDL Cholesterol, Calculated 15 mg/dL (0-40) Non-HDL Cholesterol Calculated 47 mg/dL (0-129) HDL Cholesterol 49 mg/dL (40-60) Cholesterol/HDL Ratio 2.0 Test 09/22/16 08:13 09/23/16 05:20 Ammonia < 10 mcmol/L (11-34) White Blood Count 24.6 x10^3/uL (4.0-11.0) Red Blood Count 3.50 x10^6/uL (4.30-5.70) Hemoglobin 9.6 g/dL (13.0-17.5) Hematocrit 30.1 % (39.0-53.0) Mean Corpuscular Volume 86 fL (79-100) Mean Corpuscular Hemoglobin 27 pg (25-35) Mean Corpuscular Hemoglobin Concent 32 g/dL (31-37) Red Cell Distribution Width 15.5 % (11.5-14.5) Platelet Count 223 x10^3/uL (140-400) Neutrophils (%) (Auto) 91 % (31-73) Lymphocytes (%) (Auto) 2 % (24-48) Monocytes (%) (Auto) 7 % (0-9) Eosinophils (%) (Auto) 1 % (0-3) Basophils (%) (Auto) 0 % (0-3) Neutrophils # (Auto) 22.2 x10^3uL (1.8-7.7) Lymphocytes # (Auto) 0.4 x10^3/uL (1.0-4.8) Monocytes # (Auto) 1.6 x10^3/uL (0.0-1.1) Eosinophils # (Auto) 0.2 x10^3/uL (0.0-0.7) Basophils # (Auto) 0.1 x10^3/uL (0.0-0.2) Sodium Level 135 mmol/L (136-145) Potassium Level 4.8 mmol/L (3.5-5.1) Chloride Level 96 mmol/L (98-107) Carbon Dioxide Level 20 mmol/L (21-32) Anion Gap 19 (6-14) Blood Urea Nitrogen 58 mg/dL (8-26) Creatinine 6.0 mg/dL (0.7-1.3) Estimated GFR (Cockcroft-Gault) 11.6 Glucose Level 138 mg/dL (70-99) Calcium Level 9.4 mg/dL (8.5-10.1) Phosphorus Level 6.0 mg/dL (2.6-4.7) Magnesium Level 2.1 mg/dL (1.8-2.4) Albumin 1.6 g/dL (3.4-5.0) Random Vancomycin Level 19.9 mcg/mL Laboratory Tests Test 09/23/16 05:20 White Blood Count 24.6 x10^3/uL (4.0-11.0) Red Blood Count 3.50 x10^6/uL (4.30-5.70) Hemoglobin 9.6 g/dL (13.0-17.5) Hematocrit 30.1 % (39.0-53.0) Mean Corpuscular Volume 86 fL (79-100) Mean Corpuscular Hemoglobin 27 pg (25-35) Mean Corpuscular Hemoglobin Concent 32 g/dL (31-37) Red Cell Distribution Width 15.5 % (11.5-14.5) Platelet Count 223 x10^3/uL (140-400) Neutrophils (%) (Auto) 91 % (31-73) Lymphocytes (%) (Auto) 2 % (24-48) Monocytes (%) (Auto) 7 % (0-9) Eosinophils (%) (Auto) 1 % (0-3) Basophils (%) (Auto) 0 % (0-3) Neutrophils # (Auto) 22.2 x10^3uL (1.8-7.7) Lymphocytes # (Auto) 0.4 x10^3/uL (1.0-4.8) Monocytes # (Auto) 1.6 x10^3/uL (0.0-1.1) Eosinophils # (Auto) 0.2 x10^3/uL (0.0-0.7) Basophils # (Auto) 0.1 x10^3/uL (0.0-0.2) Sodium Level 135 mmol/L (136-145) Potassium Level 4.8 mmol/L (3.5-5.1) Chloride Level 96 mmol/L (98-107) Carbon Dioxide Level 20 mmol/L (21-32) Anion Gap 19 (6-14) Blood Urea Nitrogen 58 mg/dL (8-26) Creatinine 6.0 mg/dL (0.7-1.3) Estimated GFR (Cockcroft-Gault) 11.6 Glucose Level 138 mg/dL (70-99) Calcium Level 9.4 mg/dL (8.5-10.1) Phosphorus Level 6.0 mg/dL (2.6-4.7) Magnesium Level 2.1 mg/dL (1.8-2.4) Albumin 1.6 g/dL (3.4-5.0) Random Vancomycin Level 19.9 mcg/mL Microbiology 09/21/16 Blood Culture - Final, Complete 09/21/16 Gram Stain - Final, Complete Medications Current Medications Ondansetron HCl (Zofran) 4 mg PRN Q8HRS PRN IV NAUSEA/VOMITING; Start 09/21/16 at 15:00; Stop 09/21/16 at 16:55; Status DC Morphine Sulfate 2 mg PRN Q2HR PRN IV PAIN; Start 09/21/16 at 15:00; Stop at 14:59; Status DC Ciprofloxacin Lactate 200 ml @ 200 mls/hr Q24H IV Last administered on 16:02; Start 09/21/16 at 15:00; Stop 09/22/16 at 16:44; Status DC Magnesium Sulfate/ Dextrose 50 ml @ 25 mls/hr PRN DAILY PRN IV for Mag < 1.7 on am labs; Start 09/21/16 at 16:00 Sodium Chloride 500 ml @ 0 mls/hr QID PRN IV map < 65 Last administered on 04:05; Start 09/21/16 at 16:15 Ondansetron HCl (Zofran) 4 mg PRN Q6HRS PRN IV NAUSEA/VOMITING; Start 09/21/16 at 16:52; Stop 09/22/16 at 16:51; Status DC Acetaminophen (Tylenol) 650 mg PRN Q6HRS PRN PO fever; Start 09/21/16 at 17:00 Acetaminophen/ Hydrocodone Bitart (Lortab 5/325) 1 tab PRN TID PRN PO pain; Start 09/21/16 at 17:00 Heparin Sodium (Porcine) (Heparin Sq) 5,000 unit Q8HRS SQ Last administered on 09/23/16 06:10; Start 09/21/16 at 22:00 Norepinephrine Bitartrate 250 ml @ 0 mls/hr CONT PRN IV SEE I/O RECORD; Start 09/21/16 at 17:45 Piperacillin Sod/ Tazobactam Sod 2.25 gm/Sodium Chloride 50 ml @ 100 mls/hr Q8HRS IV Last administered on 09/23/16 05:51; Start 09/21/16 at 18:00 Vancomycin HCl (Vanco Per Pharmacy) 1 each PRN DAILY PRN MC SEE COMMENTS Last administered on 09/22/16 13:23; Start 09/21/16 at 17:45 Micafungin Sodium 100 mg/Dextrose 100 ml @ 100 mls/hr Q24H IV Last administered on 09/22/16 21:18; Start 09/21/16 at 21:00 Vancomycin HCl 1.5 gm/Sodium Chloride 500 ml @ 250 mls/hr 1X ONCE IV Last administered on 09/21/16 20:18; Start 09/21/16 at 19:00; Stop 09/21/16 at 20:59 ; Status DC Vancomycin HCl 1 each 1X ONCE MC Last administered on 09/23/16 06:00; Start at 06:00; Stop 09/23/16 at 06:01; Status DC Acetaminophen (Acetaminophen Supp) 650 mg PRN Q6HRS PRN [place] MILD PAIN / TEMP; Start 09/22/16 at 00:30 Labetalol HCl (Normodyne) 10 mg PRN Q4HRS PRN IVP HYPERTENSION, SEE COMMENTS; Start 09/22/16 at 00:30 Amino Acids/ Glycerin/ Electrolytes 1,000 ml @ 80 mls/hr [id number] IV Last administered on 09/23/16 02:08; Start 09/22/16 at 08:45 Lidocaine/Sodium Bicarbonate (Buffered Lidocaine 1%) 3 ml 1X ONCE IJ Last administered on 09/22/16 09:29; Start 09/22/16 at 08:45; Stop 09/22/16 at 08:48; Status DC Heparin Sodium/ Sodium Chloride 60 unit 1X ONCE IV Last administered on 09:30; Start 09/22/16 at 08:45; Stop 09/22/16 at 08:48; Status DC Iohexol (Omnipaque 350 Mg/ml) 95 ml 1X ONCE IV Last administered on 09/22/16 11:05; Start 09/22/16 at 11:00; Stop 09/22/16 at 11:01; Status DC Info (Do NOT chart on this entry -- for MONITORING) 1 each PRN DAILY PRN MC SEE COMMENTS; Start 09/22/16 at 11:00; Stop 09/24/16 at 10:59 Sodium Chloride 500 ml @ 500 mls/hr 1X ONCE IV Last administered on 09/22/16 12:00; Start 09/22/16 at 12:00; Stop 09/22/16 at 15:55; Status DC Tobramycin Sulfate (Nebcin Per Pharmacy) 1 each PRN DAILY PRN MC SEE COMMENTS Last administered on 09/22/16t 17:08; Start 09/22/16 at 16:45; Stop 09/22/16 at 17: 11; Status DC Tobramycin Sulfate 130 mg/ Sodium Chloride 53.25 ml @ 106.5 mls/ hr ONCE ONCE IV Last administered on 09/22/16t 17:58; Start 09/22/16 at 17:00; Stop 09/22/16 at 17:29; Status DC Tobramycin Sulfate (Nebcin Per Pharmacy) 1 each 1X ONCE MC ; Start 09/22/16 at 17:15; Stop 09/22/16 at 17:16; Status DC Active Scripts Active Bactrim Ds Tablet (Sulfamethoxazole/Trimethoprim) 1 Each Tablet 1 Tab PO BID [place] 5-325 Tablet (Acetaminophen/Hydrocodone Bitart) 1 Each Tablet 1-2 Tab PO Q4-6HRS Reported Dulcolax (Bisacodyl) 10 Mg Supp.rect 10 Mg RC PRN DAILY PRN Oxycontin (Oxycodone HCl) 10 Mg Tab.er.12h 20 Mg PO BID Eliquis (Apixaban) 5 Mg Tablet 5 Mg PO BID Ondansetron Hcl 4 Mg Tablet 1 Tab PO PRN Q6HRS PRN Oxycodone Hcl 15 Mg Tablet 15 Mg PO Q4HRS PRN Acetaminophen 500 Mg Tablet 1 Tab PO Q4HRS PRN Ativan (Lorazepam) 0.5 Mg Tablet 0.5 Mg PO TID Senokot (Sennosides) 8.6 Mg Tablet 2 Tab PO BID Lipitor (Atorvastatin Calcium) 10 Mg Tablet 1 Tab PO QHS Fleet Enema (Na Phos,M-B/Na Phos,Di-Ba) 133 Ml Enema 133 Ml RC DAILY PRN Milk Of Magnesia (Magnesium Hydroxide) 2,400 Mg/10 Ml Oral.susp 2,400 Mg PO Melatonin 3 Mg Tablet 1 Tab PO QHS Vitamin B-12 (Cyanocobalamin (Vitamin B-12)) 1,000 Mcg Tablet 1 Tab PO DAILY Hydroxyzine Hcl 25 Mg Tablet 25 Mg PO QID PRN Fosrenol (Lanthanum Carbonate) 1,000 Mg Tab.chew 1,000 Mg PO TIDAC Aspir 81 (Aspirin) 81 Mg Tablet.dr 1 Tab PO DAILY Polyethylene Glycol 3350 255 Gm Powder 17 Gm PO DAILY Protonix (Pantoprazole Sodium) 40 Mg Tablet.dr 1 Tab PO DAILY Loratadine 10 Mg Tablet 1 Tab PO DAILY Renvela (Sevelamer Carbonate) 800 Mg Tablet 1 Tab PO TID Lidocaine Hcl Viscous (Lidocaine Hcl) 20 Mg/1 Ml Solution 5 Ml PO BID Aranesp Syringe (Darbepoetin [place] In Polysorbat) 60 Mcg/0.3 Ml Disp.syrin 60 Mcg SQ WEEKLY DURAGESIC 25mcg/hr (Fentanyl) 1 Each Patch.td72 1 Patch TP Q3DAYS Gabapentin 300 Mg Capsule 300 Mg PO TID Coreg (Carvedilol) 12.5 Mg Tablet 1 Tab PO BID Coreg (Carvedilol) 6.25 Mg Tablet 1 Tab PO BID Sensipar (Cinacalcet Hcl) 30 Mg Tablet 2 Tab PO DAILY Sertraline Hcl 25 Mg Tablet 25 Mg PO DAILY Vitals/I & O Vital Sign - Last 24 Hours 09/22/16 09/22/16 09/22/16 09/22/16 10:04 11:10 12:00 12:16 Temp 98.1 98.1 Pulse 88 86 110 Resp 10 14 10 B/P (MAP) 100/61 (74) 94/57 (69) 109/65 (80) Pulse Ox 100 100 100 O2 Delivery Nasal Cannula Nasal Cannula Nasal Cannula Nasal Cannula O2 Flow Rate 2.0 2.0 2.0 2.0 09/22/16 09/22/16 09/22/16 09/22/16 13:05 14:03 15:05 16:00 Pulse 112 107 85 Resp 12 11 10 B/P (MAP) 105/64 (78) 85/59 (68) 102/58 (73) Pulse Ox 100 100 99 O2 Delivery Nasal Cannula Nasal Cannula Nasal Cannula Nasal Cannula O2 Flow Rate 2.0 2.0 2.0 2.0 09/22/16 09/22/16 09/22/16 09/22/16 16:04 17:05 18:21 19:00 Temp 97.7 97.7 Pulse 83 90 82 82 Resp 11 12 12 13 B/P (MAP) 90/60 (70) 154/74 (100) 117/79 (92) 102/62 (75) Pulse Ox 100 100 100 100 O2 Delivery Nasal Cannula Nasal Cannula Nasal Cannula Nasal Cannula O2 Flow Rate 2.0 2.0 2.0 2.0 09/22/16 09/22/16 09/22/16 09/22/16 20:00 20:00 21:00 22:00 Temp 99.0 99.0 Pulse 80 87 94 Resp 12 12 13 B/P (MAP) 105/60 (75) 122/70 (87) 118/73 (88) Pulse Ox 100 100 100 O2 Delivery Nasal Cannula Nasal Cannula Nasal Cannula Nasal Cannula O2 Flow Rate 2.0 2.0 2.0 2.0 09/22/16 09/22/16 09/23/16 09/23/16 23:00 23:59 00:00 01:00 Temp 98.9 98.9 Pulse 90 93 90 Resp 17 12 12 B/P (MAP) 98/60 (73) 105/66 (79) 87/51 (63) Pulse Ox 100 100 100 O2 Delivery Nasal Cannula Nasal Cannula Nasal Cannula Nasal Cannula O2 Flow Rate 2.0 2.0 2.0 2.0 09/23/16 09/23/16 09/23/16 09/23/16 02:00 03:00 04:00 04:00 Temp 101.6 101.6 Pulse 85 111 114 Resp 12 12 19 B/P (MAP) 99/57 (71) 87/59 (68) 88/53 (65) Pulse Ox 98 98 100 O2 Delivery Nasal Cannula Nasal Cannula Nasal Cannula Nasal Cannula O2 Flow Rate 2.0 2.0 2.0 2.0 09/23/16 09/23/16 09/23/16 05:00 06:00 07:27 Pulse 87 84 86 Resp 15 13 10 B/P (MAP) 96/63 (74) 99/61 (74) 96/58 (71) Pulse Ox 100 100 100 O2 Delivery Nasal Cannula Nasal Cannula Nasal Cannula O2 Flow Rate 2.0 2.0 2.0 Intake and Output 09/22/16 09/22/16 09/23/16 15:00 23:00 07:00 Intake Total 500 ml 1080 ml 1574.6 ml Output Total 0 ml Balance 500 ml 1080 ml 1574.6 ml JESS FINE MD Sep 23, 2016 10:04
[2016-09-23 10:24] LABS: RPR REFLEX Non Reactive (Non Reactive)
--- NOTE | 2016-09-23 10:41 | PDOC ---
PROGRESS NOTES Chief Complaint Chief Complaint 1. Syncope while in HD 2. Necrotic glans penis with ACUTE pain 3. Bilaterally cold feet 4. Hypotension associated with HD 5. Sepsis with hypotension 6. ESRD On HD, ANURIC 6 Trop elevation in the background of sepsis and ESRD 7. Anemia of CKD 7. Elevated lactate 8. Acute encephalopathy sec to above 9. HYpercalcemia 10. MOd pCM 11. Elevated BNP 12. Penile wound 13. Rt varicocoele 14. DNR History of Present Illness History of Present Illness Same Minimally verbal which I think is voluntary Sometimes he will say more to staff CT reviewed, personally, no high grade stenosis IMPRESSION: There are scattered areas of disease seen associated with both superficial femoral arteries and a short segment of at least moderate stenosis associated with the left popliteal artery. The calf vessels, bilaterally, are poorly evaluated on this examination. Jani had a family meet yesterday- DNR, active tx but is open to hospice if no improvement Fevers last night, 101.6 BC shows 1/2 GNR WBC 24 from 30s on admit Urology seen the pt, formal consult pending Pt on cipro , micafungin and broad spectrum per ID Due HD today, will do in ICU\ LActate high today 3.5 PLAN: HD today See how his BP tolerates HD (was hypotensive and is on low side, but never needed to start pressors though ordered) Recheck lactate siena FOllow ID recs Follow BC and temps and WBC ct DNR Supprotive care Dw DIRECTOR OF ACCREDITATION Outside DNr signed Vitals Vitals Vital Signs Date Time Temp Pulse Resp B/P (MAP) Pulse Ox O2 Delivery O2 Flow Rate FiO2 09/23/16 10:13 98.7 82 10 116/64 (81) 100 Nasal Cannula 2.0 98.7 Physical Exam General: No acute distress Heart: Normal S1, Normal S2, No murmurs, Other (tele:SR) Abdomen: Normal bowel sounds, Soft, No tenderness, No hepatosplenomegaly, No masses Extremities: Other (R AV fistula with palpable bruit, good pulses peripherally) Skin: No rashes, No breakdown, No significant lesion Labs LABS Laboratory Tests Test 09/23/16 05:20 White Blood Count 24.6 x10^3/uL (4.0-11.0) Red Blood Count 3.50 x10^6/uL (4.30-5.70) Hemoglobin 9.6 g/dL (13.0-17.5) Hematocrit 30.1 % (39.0-53.0) Mean Corpuscular Volume 86 fL (79-100) Mean Corpuscular Hemoglobin 27 pg (25-35) Mean Corpuscular Hemoglobin Concent 32 g/dL (31-37) Red Cell Distribution Width 15.5 % (11.5-14.5) Platelet Count 223 x10^3/uL (140-400) Neutrophils (%) (Auto) 91 % (31-73) Lymphocytes (%) (Auto) 2 % (24-48) Monocytes (%) (Auto) 7 % (0-9) Eosinophils (%) (Auto) 1 % (0-3) Basophils (%) (Auto) 0 % (0-3) Neutrophils # (Auto) 22.2 x10^3uL (1.8-7.7) Lymphocytes # (Auto) 0.4 x10^3/uL (1.0-4.8) Monocytes # (Auto) 1.6 x10^3/uL (0.0-1.1) Eosinophils # (Auto) 0.2 x10^3/uL (0.0-0.7) Basophils # (Auto) 0.1 x10^3/uL (0.0-0.2) Sodium Level 135 mmol/L (136-145) Potassium Level 4.8 mmol/L (3.5-5.1) Chloride Level 96 mmol/L (98-107) Carbon Dioxide Level 20 mmol/L (21-32) Anion Gap 19 (6-14) Blood Urea Nitrogen 58 mg/dL (8-26) Creatinine 6.0 mg/dL (0.7-1.3) Estimated GFR (Cockcroft-Gault) 11.6 Glucose Level 138 mg/dL (70-99) Calcium Level 9.4 mg/dL (8.5-10.1) Phosphorus Level 6.0 mg/dL (2.6-4.7) Magnesium Level 2.1 mg/dL (1.8-2.4) Albumin 1.6 g/dL (3.4-5.0) Random Vancomycin Level 19.9 mcg/mL Review of Systems Review of Systems minimally verbal Assessment and Plan Assessmemt and Plan Problems Medical Problems: (1) Acute electrocardiogram changes Status: Acute (2) Open wound of penis Status: Acute (3) Sepsis Status: Acute Problems: Comment Review of Relevant I have reviewed the following items parvin (where applicable) has been applied. Labs Laboratory Tests Test 09/21/16 10:50 09/21/16 18:30 09/21/16 20:00 09/21/16 21:00 White Blood Count 30.7 x10^3/uL (4.0-11.0) Red Blood Count 4.16 x10^6/uL (4.30-5.70) Hemoglobin 11.4 g/dL (13.0-17.5) Hematocrit 36.3 % (39.0-53.0) Mean Corpuscular Volume 87 fL (79-100) Mean Corpuscular Hemoglobin 27 pg (25-35) Mean Corpuscular Hemoglobin Concent 31 g/dL (31-37) Red Cell Distribution Width 15.6 % (11.5-14.5) Platelet Count 252 x10^3/uL (140-400) Neutrophils (%) (Auto) 89 % (31-73) Lymphocytes (%) (Auto) 3 % (24-48) Monocytes (%) (Auto) 7 % (0-9) Eosinophils (%) (Auto) 0 % (0-3) Basophils (%) (Auto) 0 % (0-3) Neutrophils # (Auto) 27.5 x10^3uL (1.8-7.7) Lymphocytes # (Auto) 1.0 x10^3/uL (1.0-4.8) Monocytes # (Auto) 2.2 x10^3/uL (0.0-1.1) Eosinophils # (Auto) 0.0 x10^3/uL (0.0-0.7) Basophils # (Auto) 0.0 x10^3/uL (0.0-0.2) Segmented Neutrophils % 84 % (35-66) Band Neutrophils % 9 % (0-9) Monocytes % 7 % (0-10) Platelet Estimate Adequate (ADEQUATE) Polychromasia Slight Poikilocytosis Slight Anisocytosis Slight Target Cells Few Sodium Level 142 mmol/L (136-145) Potassium Level 4.2 mmol/L (3.5-5.1) Chloride Level 99 mmol/L (98-107) Carbon Dioxide Level 27 mmol/L (21-32) Anion Gap 16 (6-14) Blood Urea Nitrogen 27 mg/dL (8-26) Creatinine 4.9 mg/dL (0.7-1.3) Estimated GFR (Cockcroft-Gault) 14.7 BUN/Creatinine Ratio 6 (6-20) Glucose Level 143 mg/dL (70-99) Lactic Acid Level 3.4 mmol/L (0.4-2.0) 1.8 mmol/L (0.4-2.0) Calcium Level 10.4 mg/dL (8.5-10.1) Magnesium Level 2.1 mg/dL (1.8-2.4) Total Bilirubin 0.4 mg/dL (0.2-1.0) Aspartate Amino Transf (AST/SGOT) 33 U/L (15-37) Alanine Aminotransferase (ALT/SGPT) 16 U/L (16-63) Alkaline Phosphatase 124 U/L (46-116) Creatine Kinase 419 U/L (39-308) Creatine Kinase MB (Mass) 4.5 ng/mL (0.0-3.6) Creatine Kinase MB Relative Index 1.1 % (0-4) Troponin I Quantitative 0.620 ng/mL (0.000-0.055) 0.648 ng/mL (0.000-0.055) DT-Con-S-Type Natriuretic Peptide > 02127 pg/mL (0-124) Total Protein 8.3 g/dL (6.4-8.2) Albumin 2.5 g/dL (3.4-5.0) Albumin/Globulin Ratio 0.4 (1.0-1.7) Thyroid Stimulating Hormone (TSH) 1.281 uIU/mL (0.358-3.74) Procalcitonin 21.86 ng/mL (0.00-0.10) Nasal Screen MRSA (PCR) Negative (Negative) O2 Saturation 96 % (92-99) Arterial Blood pH 7.36 (7.35-7.45) Arterial Blood pCO2 at Patient Temp 45 mmHg (35-46) Arterial Blood pO2 at Patient Temp 90 mmHg (65-108) Arterial Blood HCO3 25 mmol/L (21-28) Arterial Blood Base Excess -1 mmol/L (-3-3) FiO2 28 Test 09/21/16 23:41 09/22/16 00:35 09/22/16 04:22 09/22/16 05:00 Glucose (Fingerstick) 111 mg/dL (70-99) 99 mg/dL (70-99) Erythrocyte Sedimentation Rate 92 (0-15) Troponin I Quantitative 0.665 ng/mL (0.000-0.055) 0.834 ng/mL (0.000-0.055) White Blood Count 25.2 x10^3/uL (4.0-11.0) Red Blood Count 4.01 x10^6/uL (4.30-5.70) Hemoglobin 11.0 g/dL (13.0-17.5) Hematocrit 35.3 % (39.0-53.0) Mean Corpuscular Volume 88 fL (79-100) Mean Corpuscular Hemoglobin 27 pg (25-35) Mean Corpuscular Hemoglobin Concent 31 g/dL (31-37) Red Cell Distribution Width 15.7 % (11.5-14.5) Platelet Count 226 x10^3/uL (140-400) Neutrophils (%) (Auto) 92 % (31-73) Lymphocytes (%) (Auto) 3 % (24-48) Monocytes (%) (Auto) 5 % (0-9) Eosinophils (%) (Auto) 0 % (0-3) Basophils (%) (Auto) 0 % (0-3) Neutrophils # (Auto) 23.2 x10^3uL (1.8-7.7) Lymphocytes # (Auto) 0.8 x10^3/uL (1.0-4.8) Monocytes # (Auto) 1.2 x10^3/uL (0.0-1.1) Eosinophils # (Auto) 0.0 x10^3/uL (0.0-0.7) Basophils # (Auto) 0.1 x10^3/uL (0.0-0.2) Sodium Level 144 mmol/L (136-145) Potassium Level 4.4 mmol/L (3.5-5.1) Chloride Level 101 mmol/L (98-107) Carbon Dioxide Level 21 mmol/L (21-32) Anion Gap 22 (6-14) Blood Urea Nitrogen 44 mg/dL (8-26) Creatinine 5.8 mg/dL (0.7-1.3) Estimated GFR (Cockcroft-Gault) 12.1 Glucose Level 109 mg/dL (70-99) Lactic Acid Level 3.5 mmol/L (0.4-2.0) Calcium Level 10.3 mg/dL (8.5-10.1) Phosphorus Level 7.0 mg/dL (2.6-4.7) Magnesium Level 2.3 mg/dL (1.8-2.4) Albumin 2.3 g/dL (3.4-5.0) Triglycerides Level 73 mg/dL (0-150) Cholesterol Level 96 mg/dL (0-200) LDL Cholesterol, Calculated 32 mg/dL (0-100) VLDL Cholesterol, Calculated 15 mg/dL (0-40) Non-HDL Cholesterol Calculated 47 mg/dL (0-129) HDL Cholesterol 49 mg/dL (40-60) Cholesterol/HDL Ratio 2.0 RPR Titer Additional Testing Non reactive (Non Reactive) Test 09/22/16 08:13 09/23/16 05:20 Ammonia < 10 mcmol/L (11-34) White Blood Count 24.6 x10^3/uL (4.0-11.0) Red Blood Count 3.50 x10^6/uL (4.30-5.70) Hemoglobin 9.6 g/dL (13.0-17.5) Hematocrit 30.1 % (39.0-53.0) Mean Corpuscular Volume 86 fL (79-100) Mean Corpuscular Hemoglobin 27 pg (25-35) Mean Corpuscular Hemoglobin Concent 32 g/dL (31-37) Red Cell Distribution Width 15.5 % (11.5-14.5) Platelet Count 223 x10^3/uL (140-400) Neutrophils (%) (Auto) 91 % (31-73) Lymphocytes (%) (Auto) 2 % (24-48) Monocytes (%) (Auto) 7 % (0-9) Eosinophils (%) (Auto) 1 % (0-3) Basophils (%) (Auto) 0 % (0-3) Neutrophils # (Auto) 22.2 x10^3uL (1.8-7.7) Lymphocytes # (Auto) 0.4 x10^3/uL (1.0-4.8) Monocytes # (Auto) 1.6 x10^3/uL (0.0-1.1) Eosinophils # (Auto) 0.2 x10^3/uL (0.0-0.7) Basophils # (Auto) 0.1 x10^3/uL (0.0-0.2) Sodium Level 135 mmol/L (136-145) Potassium Level 4.8 mmol/L (3.5-5.1) Chloride Level 96 mmol/L (98-107) Carbon Dioxide Level 20 mmol/L (21-32) Anion Gap 19 (6-14) Blood Urea Nitrogen 58 mg/dL (8-26) Creatinine 6.0 mg/dL (0.7-1.3) Estimated GFR (Cockcroft-Gault) 11.6 Glucose Level 138 mg/dL (70-99) Calcium Level 9.4 mg/dL (8.5-10.1) Phosphorus Level 6.0 mg/dL (2.6-4.7) Magnesium Level 2.1 mg/dL (1.8-2.4) Albumin 1.6 g/dL (3.4-5.0) Random Vancomycin Level 19.9 mcg/mL Laboratory Tests Test 09/23/16 05:20 White Blood Count 24.6 x10^3/uL (4.0-11.0) Red Blood Count 3.50 x10^6/uL (4.30-5.70) Hemoglobin 9.6 g/dL (13.0-17.5) Hematocrit 30.1 % (39.0-53.0) Mean Corpuscular Volume 86 fL (79-100) Mean Corpuscular Hemoglobin 27 pg (25-35) Mean Corpuscular Hemoglobin Concent 32 g/dL (31-37) Red Cell Distribution Width 15.5 % (11.5-14.5) Platelet Count 223 x10^3/uL (140-400) Neutrophils (%) (Auto) 91 % (31-73) Lymphocytes (%) (Auto) 2 % (24-48) Monocytes (%) (Auto) 7 % (0-9) Eosinophils (%) (Auto) 1 % (0-3) Basophils (%) (Auto) 0 % (0-3) Neutrophils # (Auto) 22.2 x10^3uL (1.8-7.7) Lymphocytes # (Auto) 0.4 x10^3/uL (1.0-4.8) Monocytes # (Auto) 1.6 x10^3/uL (0.0-1.1) Eosinophils # (Auto) 0.2 x10^3/uL (0.0-0.7) Basophils # (Auto) 0.1 x10^3/uL (0.0-0.2) Sodium Level 135 mmol/L (136-145) Potassium Level 4.8 mmol/L (3.5-5.1) Chloride Level 96 mmol/L (98-107) Carbon Dioxide Level 20 mmol/L (21-32) Anion Gap 19 (6-14) Blood Urea Nitrogen 58 mg/dL (8-26) Creatinine 6.0 mg/dL (0.7-1.3) Estimated GFR (Cockcroft-Gault) 11.6 Glucose Level 138 mg/dL (70-99) Calcium Level 9.4 mg/dL (8.5-10.1) Phosphorus Level 6.0 mg/dL (2.6-4.7) Magnesium Level 2.1 mg/dL (1.8-2.4) Albumin 1.6 g/dL (3.4-5.0) Random Vancomycin Level 19.9 mcg/mL Microbiology 09/21/16 Blood Culture - Final, Complete 09/21/16 Gram Stain - Final, Complete Medications Current Medications Ondansetron HCl (Zofran) 4 mg PRN Q8HRS PRN IV NAUSEA/VOMITING; Start 09/21/16 at 15:00; Stop 09/21/16 at 16:55; Status DC Morphine Sulfate 2 mg PRN Q2HR PRN IV PAIN; Start 09/21/16 at 15:00; Stop at 14:59; Status DC Ciprofloxacin Lactate 200 ml @ 200 mls/hr Q24H IV Last administered on t 16:02; Start 09/21/16 at 15:00; Stop 09/22/16 at 16:44; Status DC Magnesium Sulfate/ Dextrose 50 ml @ 25 mls/hr PRN DAILY PRN IV for Mag < 1.7 on am labs; Start 09/21/16 at 16:00 Sodium Chloride 500 ml @ 0 mls/hr QID PRN IV map < 65 Last administered on 04:05; Start 09/21/16 at 16:15 Ondansetron HCl (Zofran) 4 mg PRN Q6HRS PRN IV NAUSEA/VOMITING; Start 09/21/16 at 16:52; Stop 09/22/16 at 16:51; Status DC Acetaminophen (Tylenol) 650 mg PRN Q6HRS PRN PO fever; Start 09/21/16 at 17:00 Acetaminophen/ Hydrocodone Bitart (Lortab 5/325) 1 tab PRN TID PRN PO pain; Start 09/21/16 at 17:00 Heparin Sodium (Porcine) (Heparin Sq) 5,000 unit Q8HRS SQ Last administered on 09/23/16 06:10; Start 09/21/16 at 22:00 Norepinephrine Bitartrate 250 ml @ 0 mls/hr CONT PRN IV SEE I/O RECORD; Start 09/21/16 at 17:45 Piperacillin Sod/ Tazobactam Sod 2.25 gm/Sodium Chloride 50 ml @ 100 mls/hr Q8HRS IV Last administered on 09/23/16 05:51; Start 09/21/16 at 18:00 Vancomycin HCl (Vanco Per Pharmacy) 1 each PRN DAILY PRN MC SEE COMMENTS Last administered on 09/22/16 13:23; Start 09/21/16 at 17:45 Micafungin Sodium 100 mg/Dextrose 100 ml @ 100 mls/hr Q24H IV Last administered on 09/22/16 21:18; Start 09/21/16 at 21:00 Vancomycin HCl 1.5 gm/Sodium Chloride 500 ml @ 250 mls/hr 1X ONCE IV Last administered on 09/21/16 20:18; Start 09/21/16 at 19:00; Stop 09/21/16 at 20:59 ; Status DC Vancomycin HCl 1 each 1X ONCE MC Last administered on 09/23/16 06:00; Start at 06:00; Stop 09/23/16 at 06:01; Status DC Acetaminophen (Acetaminophen Supp) 650 mg PRN Q6HRS PRN [place] MILD PAIN / TEMP; Start 09/22/16 at 00:30 Labetalol HCl (Normodyne) 10 mg PRN Q4HRS PRN IVP HYPERTENSION, SEE COMMENTS; Start 09/22/16 at 00:30 Amino Acids/ Glycerin/ Electrolytes 1,000 ml @ 80 mls/hr [id number] IV Last administered on 09/23/16 02:08; Start 09/22/16 at 08:45 Lidocaine/Sodium Bicarbonate (Buffered Lidocaine 1%) 3 ml 1X ONCE IJ Last administered on 09/22/16 09:29; Start 09/22/16 at 08:45; Stop 09/22/16 at 08:48; Status DC Heparin Sodium/ Sodium Chloride 60 unit 1X ONCE IV Last administered on 09:30; Start 09/22/16 at 08:45; Stop 09/22/16 at 08:48; Status DC Iohexol (Omnipaque 350 Mg/ml) 95 ml 1X ONCE IV Last administered on 09/22/16 11:05; Start 09/22/16 at 11:00; Stop 09/22/16 at 11:01; Status DC Info (Do NOT chart on this entry -- for MONITORING) 1 each PRN DAILY PRN MC SEE COMMENTS; Start 09/22/16 at 11:00; Stop 09/24/16 at 10:59 Sodium Chloride 500 ml @ 500 mls/hr 1X ONCE IV Last administered on 09/22/16 12:00; Start 09/22/16 at 12:00; Stop 09/22/16 at 15:55; Status DC Tobramycin Sulfate (Nebcin Per Pharmacy) 1 each PRN DAILY PRN MC SEE COMMENTS Last administered on 09/22/16 17:08; Start 09/22/16 at 16:45; Stop 09/22/16 at 17: 11; Status DC Tobramycin Sulfate 130 mg/ Sodium Chloride 53.25 ml @ 106.5 mls/ hr ONCE ONCE IV Last administered on 09/22/16 17:58; Start 09/22/16 at 17:00; Stop 09/22/16 at 17:29; Status DC Tobramycin Sulfate (Nebcin Per Pharmacy) 1 each 1X ONCE MC ; Start 09/22/16 at 17:15; Stop 09/22/16 at 17:16; Status DC Active Scripts Active Bactrim Ds Tablet (Sulfamethoxazole/Trimethoprim) 1 Each Tablet 1 Tab PO BID Pony 5-325 Tablet (Acetaminophen/Hydrocodone Bitart) 1 Each Tablet 1-2 Tab PO Q4-6HRS Reported Dulcolax (Bisacodyl) 10 Mg Supp.rect 10 Mg RC PRN DAILY PRN Oxycontin (Oxycodone HCl) 10 Mg Tab.er.12h 20 Mg PO BID Eliquis (Apixaban) 5 Mg Tablet 5 Mg PO BID Ondansetron Hcl 4 Mg Tablet 1 Tab PO PRN Q6HRS PRN Oxycodone Hcl 15 Mg Tablet 15 Mg PO Q4HRS PRN Acetaminophen 500 Mg Tablet 1 Tab PO Q4HRS PRN Ativan (Lorazepam) 0.5 Mg Tablet 0.5 Mg PO TID Senokot (Sennosides) 8.6 Mg Tablet 2 Tab PO BID Lipitor (Atorvastatin Calcium) 10 Mg Tablet 1 Tab PO QHS Fleet Enema (Na Phos,M-B/Na Phos,Di-Ba) 133 Ml Enema 133 Ml RC DAILY PRN Milk Of Magnesia (Magnesium Hydroxide) 2,400 Mg/10 Ml Oral.susp 2,400 Mg PO Melatonin 3 Mg Tablet 1 Tab PO QHS Vitamin B-12 (Cyanocobalamin (Vitamin B-12)) 1,000 Mcg Tablet 1 Tab PO DAILY Hydroxyzine Hcl 25 Mg Tablet 25 Mg PO QID PRN Fosrenol (Lanthanum Carbonate) 1,000 Mg Tab.chew 1,000 Mg PO TIDAC Aspir 81 (Aspirin) 81 Mg Tablet.dr 1 Tab PO DAILY Polyethylene Glycol 3350 255 Gm Powder 17 Gm PO DAILY Protonix (Pantoprazole Sodium) 40 Mg Tablet.dr 1 Tab PO DAILY Loratadine 10 Mg Tablet 1 Tab PO DAILY Renvela (Sevelamer Carbonate) 800 Mg Tablet 1 Tab PO TID Lidocaine Hcl Viscous (Lidocaine Hcl) 20 Mg/1 Ml Solution 5 Ml PO BID Aranesp Syringe (Darbepoetin [place] In Polysorbat) 60 Mcg/0.3 Ml Disp.syrin 60 Mcg SQ WEEKLY DURAGESIC 25mcg/hr (Fentanyl) 1 Each Patch.td72 1 Patch TP Q3DAYS Gabapentin 300 Mg Capsule 300 Mg PO TID Coreg (Carvedilol) 12.5 Mg Tablet 1 Tab PO BID Coreg (Carvedilol) 6.25 Mg Tablet 1 Tab PO BID Sensipar (Cinacalcet Hcl) 30 Mg Tablet 2 Tab PO DAILY Sertraline Hcl 25 Mg Tablet 25 Mg PO DAILY Vitals/I & O Vital Sign - Last 24 Hours 09/22/16 09/22/16 09/22/16 09/22/16 11:10 12:00 12:16 13:05 Temp 98.1 98.1 Pulse 86 110 112 Resp 14 10 12 B/P (MAP) 94/57 (69) 109/65 (80) 105/64 (78) Pulse Ox 100 100 100 O2 Delivery Nasal Cannula Nasal Cannula Nasal Cannula Nasal Cannula O2 Flow Rate 2.0 2.0 2.0 2.0 09/22/16 09/22/16 09/22/16 09/22/16 14:03 15:05 16:00 16:04 Temp 97.7 97.7 Pulse 107 85 83 Resp 11 10 11 B/P (MAP) 85/59 (68) 102/58 (73) 90/60 (70) Pulse Ox 100 99 100 O2 Delivery Nasal Cannula Nasal Cannula Nasal Cannula Nasal Cannula O2 Flow Rate 2.0 2.0 2.0 2.0 09/22/16 09/22/16 09/22/16 09/22/16 17:05 18:21 19:00 20:00 Pulse 90 82 82 Resp 12 12 13 B/P (MAP) 154/74 (100) 117/79 (92) 102/62 (75) Pulse Ox 100 100 100 O2 Delivery Nasal Cannula Nasal Cannula Nasal Cannula Nasal Cannula O2 Flow Rate 2.0 2.0 2.0 2.0 09/22/16 09/22/16 09/22/16 09/22/16 20:00 21:00 22:00 23:00 Temp 99.0 99.0 Pulse 80 87 94 90 Resp 12 04 05 17 B/P (MAP) 105/60 (75) 122/70 (87) 118/73 (88) 98/60 (73) Pulse Ox 100 100 100 100 O2 Delivery Nasal Cannula Nasal Cannula Nasal Cannula Nasal Cannula O2 Flow Rate 2.0 2.0 2.0 2.0 09/22/16 09/23/16 09/23/16 09/23/16 23:59 00:00 01:00 02:00 Temp 98.9 98.9 Pulse 93 90 85 Resp 12 12 B/P (MAP) 105/66 (79) 87/51 (63) 99/57 (71) Pulse Ox 100 100 98 O2 Delivery Nasal Cannula Nasal Cannula Nasal Cannula Nasal Cannula O2 Flow Rate 2.0 2.0 2.0 2.0 09/23/16 09/23/16 09/23/16 09/23/16 03:00 04:00 04:00 05:00 Temp 101.6 101.6 Pulse 111 114 87 Resp 12 19 15 B/P (MAP) 87/59 (68) 88/53 (65) 96/63 (74) Pulse Ox 98 100 100 O2 Delivery Nasal Cannula Nasal Cannula Nasal Cannula Nasal Cannula O2 Flow Rate 2.0 2.0 2.0 2.0 09/23/16 09/23/16 09/23/16 09/23/16 06:00 07:27 08:15 09:15 Pulse 84 86 84 82 Resp 13 10 15 11 B/P (MAP) 99/61 (74) 96/58 (71) 110/61 (77) 109/61 (77) Pulse Ox 100 100 100 100 O2 Delivery Nasal Cannula Nasal Cannula Nasal Cannula Nasal Cannula O2 Flow Rate 2.0 2.0 2.0 2.0 09/23/16 10:13 Temp 98.7 98.7 Pulse 82 Resp 10 B/P (MAP) 116/64 (81) Pulse Ox 100 O2 Delivery Nasal Cannula O2 Flow Rate 2.0 Intake and Output 09/22/16 09/22/16 09/23/16 14:59 22:59 06:59 Intake Total 1000 ml 1080 ml 1574.6 ml Output Total 0 ml Balance 1000 ml 1080 ml 1574.6 ml Nutrition Consultation Dietary Evaluation: Recommendations by RD: Increase Calorie Intake, Protein supplementation, PPN/ TPN Comments: Pt on PPN @ 80 ml/hr - this provides 470 calories (25% estimated calorie needs) and 55 grams of protein (70% estimated protein Rec. speech evaluation to determine need for modified diet Expected Outcomes/Goals: meet 75% estimated nutrition needs Malnutrition Findings: Malnutrition related to morbid: No Weight Status: Appropriate SABINE LE MD Sep 23, 2016 10:41
--- NOTE | 2016-09-23 11:22 | PDOC ---
CARDIO Progress Notes Date and Time Date of Service 09/23/16 Time of Evaluation 1120 Subjective Subjective: No Chest Pain, No shortness of breath, No Palpitations Vitals Vitals Vital Signs Date Time Temp Pulse Resp B/P (MAP) Pulse Ox O2 Delivery O2 Flow Rate FiO2 09/23/16 11:12 80 13 101/62 (75) 100 Nasal Cannula 2.0 09/23/16 10:13 98.7 98.7 Weight Weight [ ] Input and Output Intake and Output Intake and Output 09/23/16 07:00 Intake Total 3154.6 ml Output Total 0 ml Balance 3154.6 ml Intake Oral 240 ml IV Total 2914.6 ml Output Urine Total 0 ml # Bowel Movements 6 Laboratory Labs Laboratory Tests Test 09/23/16 05:20 White Blood Count 24.6 x10^3/uL (4.0-11.0) Red Blood Count 3.50 x10^6/uL (4.30-5.70) Hemoglobin 9.6 g/dL (13.0-17.5) Hematocrit 30.1 % (39.0-53.0) Mean Corpuscular Volume 86 fL (79-100) Mean Corpuscular Hemoglobin 27 pg (25-35) Mean Corpuscular Hemoglobin Concent 32 g/dL (31-37) Red Cell Distribution Width 15.5 % (11.5-14.5) Platelet Count 223 x10^3/uL (140-400) Neutrophils (%) (Auto) 91 % (31-73) Lymphocytes (%) (Auto) 2 % (24-48) Monocytes (%) (Auto) 7 % (0-9) Eosinophils (%) (Auto) 1 % (0-3) Basophils (%) (Auto) 0 % (0-3) Neutrophils # (Auto) 22.2 x10^3uL (1.8-7.7) Lymphocytes # (Auto) 0.4 x10^3/uL (1.0-4.8) Monocytes # (Auto) 1.6 x10^3/uL (0.0-1.1) Eosinophils # (Auto) 0.2 x10^3/uL (0.0-0.7) Basophils # (Auto) 0.1 x10^3/uL (0.0-0.2) Sodium Level 135 mmol/L (136-145) Potassium Level 4.8 mmol/L (3.5-5.1) Chloride Level 96 mmol/L (98-107) Carbon Dioxide Level 20 mmol/L (21-32) Anion Gap 19 (6-14) Blood Urea Nitrogen 58 mg/dL (8-26) Creatinine 6.0 mg/dL (0.7-1.3) Estimated GFR (Cockcroft-Gault) 11.6 Glucose Level 138 mg/dL (70-99) Calcium Level 9.4 mg/dL (8.5-10.1) Phosphorus Level 6.0 mg/dL (2.6-4.7) Magnesium Level 2.1 mg/dL (1.8-2.4) Albumin 1.6 g/dL (3.4-5.0) Random Vancomycin Level 19.9 mcg/mL Microbiology Micro Microbiology 09/21/16 Blood Culture - Final, Complete 09/21/16 Gram Stain - Final, Complete Physical Exam HEENT: Neck Supple W Full Motion Chest: Symmetric LUNGS: Clear to Auscultation, Other (diminished bases anteriorly ) Heart: S1S2, RRR, murmurs (2/6 systolic murmur ) Abdomen: Soft N/T Extremities: No Edema, Other (diminished DP pulses bilaterally ) Neurology: other (lethargic; difficulty to arouse ) Assessment Assessment 1. Leukocytosis with sepsis and hypotension/tachycardia improved. maintaining low-normotensive BP continue antibiotic therapy as per ID 2. NSTEMI, type II demand mediated echo with LVEF of 50%, LVH and DD; no W[facility] records from indicate cath previously without significant coronary disease 3. non-ischemic cardiomyopathy LVEF previously about 40% on echo at - 2016 has [employer] subcutaneous ICD -device with normal function holding BB, ACEI, diuretic therapy secondary to hypotension fluid management via HD per nephrology 4. ESRD with HD per nephrology 6. encephalopathy 7. H/o AFIB likely etiology for use of OAC GIOVANNI KEY APRN Sep 23, 2016 11:22
--- NOTE | 2016-09-23 11:23 | PDOC ---
PULMONARY PROGRESS NOTES Subjective sleepy Vitals Vital Signs Date Time Temp Pulse Resp B/P (MAP) Pulse Ox O2 Delivery O2 Flow Rate FiO2 09/23/16 11:12 80 13 101/62 (75) 100 Nasal Cannula 2.0 09/23/16 10:13 98.7 98.7 General: Lethargic Lungs: Clear Cardiovascular: S1 Abdomen: Soft Extremities: No Edema, Other (glans necrosis) Labs Laboratory Tests Test 09/21/16 18:30 09/21/16 20:00 09/21/16 21:00 09/21/16 23:41 Lactic Acid Level 1.8 mmol/L (0.4-2.0) Troponin I Quantitative 0.648 ng/mL (0.000-0.055) Procalcitonin 21.86 ng/mL (0.00-0.10) Nasal Screen MRSA (PCR) Negative (Negative) O2 Saturation 96 % (92-99) Arterial Blood pH 7.36 (7.35-7.45) Arterial Blood pCO2 at Patient Temp 45 mmHg (35-46) Arterial Blood pO2 at Patient Temp 90 mmHg (65-108) Arterial Blood HCO3 25 mmol/L (21-28) Arterial Blood Base Excess -1 mmol/L (-3-3) FiO2 28 Glucose (Fingerstick) 111 mg/dL (70-99) Test 09/22/16 00:35 09/22/16 04:22 09/22/16 05:00 09/22/16 08:13 Erythrocyte Sedimentation Rate 92 (0-15) Troponin I Quantitative 0.665 ng/mL (0.000-0.055) 0.834 ng/mL (0.000-0.055) Glucose (Fingerstick) 99 mg/dL (70-99) White Blood Count 25.2 x10^3/uL (4.0-11.0) Red Blood Count 4.01 x10^6/uL (4.30-5.70) Hemoglobin 11.0 g/dL (13.0-17.5) Hematocrit 35.3 % (39.0-53.0) Mean Corpuscular Volume 88 fL (79-100) Mean Corpuscular Hemoglobin 27 pg (25-35) Mean Corpuscular Hemoglobin Concent 31 g/dL (31-37) Red Cell Distribution Width 15.7 % (11.5-14.5) Platelet Count 226 x10^3/uL (140-400) Neutrophils (%) (Auto) 92 % (31-73) Lymphocytes (%) (Auto) 3 % (24-48) Monocytes (%) (Auto) 5 % (0-9) Eosinophils (%) (Auto) 0 % (0-3) Basophils (%) (Auto) 0 % (0-3) Neutrophils # (Auto) 23.2 x10^3uL (1.8-7.7) Lymphocytes # (Auto) 0.8 x10^3/uL (1.0-4.8) Monocytes # (Auto) 1.2 x10^3/uL (0.0-1.1) Eosinophils # (Auto) 0.0 x10^3/uL (0.0-0.7) Basophils # (Auto) 0.1 x10^3/uL (0.0-0.2) Sodium Level 144 mmol/L (136-145) Potassium Level 4.4 mmol/L (3.5-5.1) Chloride Level 101 mmol/L (98-107) Carbon Dioxide Level 21 mmol/L (21-32) Anion Gap 22 (6-14) Blood Urea Nitrogen 44 mg/dL (8-26) Creatinine 5.8 mg/dL (0.7-1.3) Estimated GFR (Cockcroft-Gault) 12.1 Glucose Level 109 mg/dL (70-99) Lactic Acid Level 3.5 mmol/L (0.4-2.0) Calcium Level 10.3 mg/dL (8.5-10.1) Phosphorus Level 7.0 mg/dL (2.6-4.7) Magnesium Level 2.3 mg/dL (1.8-2.4) Albumin 2.3 g/dL (3.4-5.0) Triglycerides Level 73 mg/dL (0-150) Cholesterol Level 96 mg/dL (0-200) LDL Cholesterol, Calculated 32 mg/dL (0-100) VLDL Cholesterol, Calculated 15 mg/dL (0-40) Non-HDL Cholesterol Calculated 47 mg/dL (0-129) HDL Cholesterol 49 mg/dL (40-60) Cholesterol/HDL Ratio 2.0 RPR Titer Additional Testing Non reactive (Non Reactive) Ammonia < 10 mcmol/L (11-34) Test 09/23/16 05:20 White Blood Count 24.6 x10^3/uL (4.0-11.0) Red Blood Count 3.50 x10^6/uL (4.30-5.70) Hemoglobin 9.6 g/dL (13.0-17.5) Hematocrit 30.1 % (39.0-53.0) Mean Corpuscular Volume 86 fL (79-100) Mean Corpuscular Hemoglobin 27 pg (25-35) Mean Corpuscular Hemoglobin Concent 32 g/dL (31-37) Red Cell Distribution Width 15.5 % (11.5-14.5) Platelet Count 223 x10^3/uL (140-400) Neutrophils (%) (Auto) 91 % (31-73) Lymphocytes (%) (Auto) 2 % (24-48) Monocytes (%) (Auto) 7 % (0-9) Eosinophils (%) (Auto) 1 % (0-3) Basophils (%) (Auto) 0 % (0-3) Neutrophils # (Auto) 22.2 x10^3uL (1.8-7.7) Lymphocytes # (Auto) 0.4 x10^3/uL (1.0-4.8) Monocytes # (Auto) 1.6 x10^3/uL (0.0-1.1) Eosinophils # (Auto) 0.2 x10^3/uL (0.0-0.7) Basophils # (Auto) 0.1 x10^3/uL (0.0-0.2) Sodium Level 135 mmol/L (136-145) Potassium Level 4.8 mmol/L (3.5-5.1) Chloride Level 96 mmol/L (98-107) Carbon Dioxide Level 20 mmol/L (21-32) Anion Gap 19 (6-14) Blood Urea Nitrogen 58 mg/dL (8-26) Creatinine 6.0 mg/dL (0.7-1.3) Estimated GFR (Cockcroft-Gault) 11.6 Glucose Level 138 mg/dL (70-99) Calcium Level 9.4 mg/dL (8.5-10.1) Phosphorus Level 6.0 mg/dL (2.6-4.7) Magnesium Level 2.1 mg/dL (1.8-2.4) Albumin 1.6 g/dL (3.4-5.0) Random Vancomycin Level 19.9 mcg/mL Laboratory Tests Test 09/23/16 05:20 White Blood Count 24.6 x10^3/uL (4.0-11.0) Red Blood Count 3.50 x10^6/uL (4.30-5.70) Hemoglobin 9.6 g/dL (13.0-17.5) Hematocrit 30.1 % (39.0-53.0) Mean Corpuscular Volume 86 fL (79-100) Mean Corpuscular Hemoglobin 27 pg (25-35) Mean Corpuscular Hemoglobin Concent 32 g/dL (31-37) Red Cell Distribution Width 15.5 % (11.5-14.5) Platelet Count 223 x10^3/uL (140-400) Neutrophils (%) (Auto) 91 % (31-73) Lymphocytes (%) (Auto) 2 % (24-48) Monocytes (%) (Auto) 7 % (0-9) Eosinophils (%) (Auto) 1 % (0-3) Basophils (%) (Auto) 0 % (0-3) Neutrophils # (Auto) 22.2 x10^3uL (1.8-7.7) Lymphocytes # (Auto) 0.4 x10^3/uL (1.0-4.8) Monocytes # (Auto) 1.6 x10^3/uL (0.0-1.1) Eosinophils # (Auto) 0.2 x10^3/uL (0.0-0.7) Basophils # (Auto) 0.1 x10^3/uL (0.0-0.2) Sodium Level 135 mmol/L (136-145) Potassium Level 4.8 mmol/L (3.5-5.1) Chloride Level 96 mmol/L (98-107) Carbon Dioxide Level 20 mmol/L (21-32) Anion Gap 19 (6-14) Blood Urea Nitrogen 58 mg/dL (8-26) Creatinine 6.0 mg/dL (0.7-1.3) Estimated GFR (Cockcroft-Gault) 11.6 Glucose Level 138 mg/dL (70-99) Calcium Level 9.4 mg/dL (8.5-10.1) Phosphorus Level 6.0 mg/dL (2.6-4.7) Magnesium Level 2.1 mg/dL (1.8-2.4) Albumin 1.6 g/dL (3.4-5.0) Random Vancomycin Level 19.9 mcg/mL Medications Active Scripts Medications Dose Route/Sig Max Daily Dose Days Date Category Dulcolax (Bisacodyl) 10 Mg Supp.rect 10 Mg RC PRN DAILY PRN 09/22/16 Reported Oxycontin (Oxycodone HCl) 10 Mg Tab.er.12h 20 Mg PO BID 09/22/16 Reported Eliquis (Apixaban) 5 Mg Tablet 5 Mg PO BID 09/22/16 Reported Ondansetron Hcl 4 Mg Tablet 1 Tab PO PRN Q6HRS PRN 09/22/16 Reported Oxycodone Hcl 15 Mg Tablet 15 Mg PO Q4HRS PRN 09/22/16 Reported Acetaminophen 500 Mg Tablet 1 Tab PO Q4HRS PRN 09/22/16 Reported Ativan (Lorazepam) 0.5 Mg Tablet 0.5 Mg PO TID 09/22/16 Reported Senokot (Sennosides) 8.6 Mg Tablet 2 Tab PO BID 09/22/16 Reported Lipitor (Atorvastatin Calcium) 10 Mg Tablet 1 Tab PO QHS 09/22/16 Reported Fleet Enema (Na Phos,M-B/Na Phos,Di-Ba) 133 Ml Enema 133 Ml RC DAILY PRN 09/22/16 Reported Milk Of Magnesia (Magnesium Hydroxide) 2,400 Mg/10 Ml Oral.susp 2,400 Mg PO 09/22/16 Reported Melatonin 3 Mg Tablet 1 Tab PO QHS 09/22/16 Reported Vitamin B-12 (Cyanocobalamin (Vitamin B-12)) 1,000 Mcg Tablet 1 Tab PO DAILY 09/22/16 Reported Hydroxyzine Hcl 25 Mg Tablet 25 Mg PO QID PRN 09/22/16 Reported Fosrenol (Lanthanum Carbonate) 1,000 Mg Tab.chew 1,000 Mg PO TIDAC 09/22/16 Reported Aspir 81 (Aspirin) 81 Mg Tablet.dr 1 Tab PO DAILY 09/22/16 Reported Polyethylene Glycol 3350 255 Gm Powder 17 Gm PO DAILY 09/22/16 Reported Protonix (Pantoprazole Sodium) 40 Mg Tablet.dr 1 Tab PO DAILY 09/22/16 Reported Loratadine 10 Mg Tablet 1 Tab PO DAILY 09/22/16 Reported Renvela (Sevelamer Carbonate) 800 Mg Tablet 1 Tab PO TID 09/22/16 Reported Lidocaine Hcl Viscous (Lidocaine Hcl) 20 Mg/1 Ml Solution 5 Ml PO BID 09/22/16 Reported Aranesp Syringe (Darbepoetin [place] In Polysorbat) 60 Mcg/0.3 Ml Disp.syrin 60 Mcg SQ WEEKLY 09/22/16 Reported DURAGESIC 25mcg/hr (Fentanyl) 1 Each Patch.td72 1 Patch TP Q3DAYS 09/22/16 Reported Gabapentin 300 Mg Capsule 300 Mg PO TID 09/22/16 Reported Coreg (Carvedilol) 12.5 Mg Tablet 1 Tab PO BID 09/22/16 Reported Coreg (Carvedilol) 6.25 Mg Tablet 1 Tab PO BID 09/22/16 Reported Sensipar (Cinacalcet Hcl) 30 Mg Tablet 2 Tab PO DAILY 09/22/16 Reported Sertraline Hcl 25 Mg Tablet 25 Mg PO DAILY 09/22/16 Reported Bactrim Ds Tablet (Sulfamethoxazole/Trimethoprim) 1 Each Tablet 1 Tab PO BID 04/25/16 Rx [place] 5-325 Tablet (Acetaminophen/Hydrocodone Bitart) 1 Each Tablet 1-2 Tab PO Q4-6HRS 04/25/16 Rx Impression . 1. Sepsis syndrome. The etiology is not so obvious. It is not in the lungs. 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 CTA of the abdomen not so impressive 2. Marked leukocytosis, secondary to sepsis 3. History of tobacco use in the past. 4. End-stage renal disease, on hemodialysis. 5. Hypotension/shock, secondary to a combination of hypovolemia and early sepsis. Blood pressure is now more stabilized and he did not require pressors. Plan . 1. From a pulmonary standpoint, he is doing reasonably well on 2 liters nasal cannula. 2. Continue broad-spectrum antibiotics. 3. Follow white cell count 4. Follow Infectious Disease recommendations. 6. Follow Vascular Surgery recommendations. 7. Discussed with RN. pt is DNR now 8. HD today ROLY BOWIE MD Sep 23, 2016 11:23
[2016-09-23] MEDS: VANCOMYCIN PER PHARMACY MC PRN ×3 (12:13→12:19)
--- NOTE | 2016-09-23 12:52 | PDOC ---
SUBJECTIVE ROS ESRD doing and feeling a little better today CVS: no Orthopnea, no CP RESP: no SOB, no WELLS GI: no Nausea, no Vomiting : no Dysuria, no Urgency OBJECTIVE Vital Signs Vital Signs Date Time Temp Pulse Resp B/P (MAP) Pulse Ox O2 Delivery O2 Flow Rate FiO2 09/23/16 12:23 Nasal Cannula 2.0 09/23/16 12:09 78 11 109/65 (80) 100 09/23/16 10:13 I & 0 Intake and Output 09/23/16 07:00 Intake Total 3154.6 ml Output Total 0 ml Balance 3154.6 ml Intake Oral 240 ml IV Total 2914.6 ml Output Urine Total 0 ml # Bowel Movements 6 PHYSICAL EXAM Physical Exam General Appearance: more Awake but not fully Alert Oriented x 0-1 In no Distress Eyes: Conjunctiva Normal; LEft eye prosthetic, EN: No EN Drainage Mucous Memb. dryish Neck: no JVD + JVP Supple no Thyromegaly CVS: S1 S2 + Murmur No Gallop No Rub no Edema Resp: no Rales no Rhonchi no Acc. Muscle use GI: BS hypoactive NO Bruit Non Tender Non Distended : no CVA tenderness; no Suprapubic Tenderness SKIN: no Rashes Breast Exam deferred; ? 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 HypoTN (Now off pressors) - suspect septic Shock GNR in bl Cx ; IVF boluses as ordered. ECHO noted WAG - Lactic i+ ^ed Phos - Phos trending dwon ASVDz - will need Vasc surgery to see for popliteal stenosis once more stable hemodynamically. Bone & Mineral: follow phos and reassess need to change binder regimen, currently PO intake is min. HypoAlb - ? Need for TF vs TPN based on improvement in Mental status ^ed Steve - suspect due to recent HD - watch trend ? Sepsis +/- shock - IVF as needed to maintain volume nutrition - PPN for now - change to TPN if unable to take PO Ischemic Glans - ? Asso with PVD - CTA and vasc/ URO eval pending Discussed Plan of Care and prognosis etc. at length with Dr. Haney and Dr Mcdowell COMMENT/RELEVANT DATA Meds Current Medications Medications (Trade) Dose Ordered Sig/Martina Start Time Stop Time Status Last Admin Dose Admin Acetaminophen (Acetaminophen Supp) 650 mg PRN Q6HRS PRN 09/22/16 00:30 Acetaminophen (Tylenol) 650 mg PRN Q6HRS PRN 09/21/16 17:00 Acetaminophen/ Hydrocodone Bitart (Lortab 5/325) 1 tab PRN TID PRN 09/21/16 17:00 Amino Acids/ Glycerin/ Electrolytes 1,000 ml @ 80 mls/hr [id number] 09/22/16 08:45 09/23/16 11:20 80 MLS/HR Ciprofloxacin Lactate 200 ml @ 200 mls/hr Q24H 09/21/16 15:00 09/22/16 16:44 DC 09/22/16 16:02 200 MLS/HR Heparin Sodium (Porcine) (Heparin Sq) 5,000 unit Q8HRS 09/21/16 22:00 09/23/16 06:10 5,000 UNIT Heparin Sodium/ Sodium Chloride 60 unit 1X ONCE 09/22/16 08:45 09/22/16 08:48 DC 09/22/16 09:30 60 UNIT Info (Do NOT chart on this entry -- for MONITORING) 1 each PRN DAILY PRN 09/22/16 11:00 09/24/16 10:59 Iohexol (Omnipaque 350 Mg/ml) 95 ml 1X ONCE 09/22/16 11:00 09/22/16 11:01 DC 09/22/16 11:05 95 ML Labetalol HCl (Normodyne) 10 mg PRN Q4HRS PRN 09/22/16 00:30 Lidocaine/Sodium Bicarbonate (Buffered Lidocaine 1%) 3 ml 1X ONCE 09/22/16 08:45 09/22/16 08:48 DC 09/22/16 09:29 3 ML Magnesium Sulfate/ Dextrose 50 ml @ 25 mls/hr PRN DAILY PRN 09/21/16 16:00 Micafungin Sodium 100 mg/Dextrose 100 ml @ 100 mls/hr Q24H 09/21/16 21:00 09/22/16 21:18 100 MLS/HR Morphine Sulfate 2 mg PRN Q2HR PRN 09/21/16 15:00 09/22/16 14:59 DC Norepinephrine Bitartrate 250 ml @ 0 mls/hr CONT PRN 09/21/16 17:45 Ondansetron HCl (Zofran) 4 mg PRN Q6HRS PRN 09/21/16 16:52 09/22/16 16:51 DC Piperacillin Sod/ Tazobactam Sod 2.25 gm/Sodium Chloride 50 ml @ 100 mls/hr Q8HRS 09/21/16 18:00 09/23/16 05:51 100 MLS/HR Sodium Chloride 500 ml @ 500 mls/hr 1X ONCE 09/22/16 12:00 09/22/16 15:55 DC 09/22/16 12:00 500 MLS/HR Tobramycin Sulfate 130 mg/ Sodium Chloride 53.25 ml @ 106.5 mls/ hr ONCE ONCE 09/22/16 17:00 09/22/16 17:29 DC 09/22/16 17:58 106.5 MLS/HR Tobramycin Sulfate (Nebcin Per Pharmacy) 1 each 1X ONCE 09/22/16 17:15 09/22/16 17:16 DC Vancomycin HCl (Vanco Per Pharmacy) 1 each PRN DAILY PRN 09/21/16 17:45 09/23/16 12:19 1 EACH Vancomycin HCl 1.5 gm/Sodium Chloride 500 ml @ 250 mls/hr 1X ONCE 09/21/16 19:00 09/21/16 20:59 DC 09/21/16 20:18 250 MLS/HR Vancomycin HCl 500 mg/Sodium Chloride 100 ml @ 100 mls/hr QMWF 09/23/16 16:00 Lab Laboratory Tests Test 09/23/16 05:20 White Blood Count 24.6 x10^3/uL (4.0-11.0) Red Blood Count 3.50 x10^6/uL (4.30-5.70) Hemoglobin 9.6 g/dL (13.0-17.5) Hematocrit 30.1 % (39.0-53.0) Mean Corpuscular Volume 86 fL (79-100) Mean Corpuscular Hemoglobin 27 pg (25-35) Mean Corpuscular Hemoglobin Concent 32 g/dL (31-37) Red Cell Distribution Width 15.5 % (11.5-14.5) Platelet Count 223 x10^3/uL (140-400) Neutrophils (%) (Auto) 91 % (31-73) Lymphocytes (%) (Auto) 2 % (24-48) Monocytes (%) (Auto) 7 % (0-9) Eosinophils (%) (Auto) 1 % (0-3) Basophils (%) (Auto) 0 % (0-3) Neutrophils # (Auto) 22.2 x10^3uL (1.8-7.7) Lymphocytes # (Auto) 0.4 x10^3/uL (1.0-4.8) Monocytes # (Auto) 1.6 x10^3/uL (0.0-1.1) Eosinophils # (Auto) 0.2 x10^3/uL (0.0-0.7) Basophils # (Auto) 0.1 x10^3/uL (0.0-0.2) Sodium Level 135 mmol/L (136-145) Potassium Level 4.8 mmol/L (3.5-5.1) Chloride Level 96 mmol/L (98-107) Carbon Dioxide Level 20 mmol/L (21-32) Anion Gap 19 (6-14) Blood Urea Nitrogen 58 mg/dL (8-26) Creatinine 6.0 mg/dL (0.7-1.3) Estimated GFR (Cockcroft-Gault) 11.6 Glucose Level 138 mg/dL (70-99) Calcium Level 9.4 mg/dL (8.5-10.1) Phosphorus Level 6.0 mg/dL (2.6-4.7) Magnesium Level 2.1 mg/dL (1.8-2.4) Albumin 1.6 g/dL (3.4-5.0) Random Vancomycin Level 19.9 mcg/mL SHELLY ESTEBAN MD Sep 23, 2016 12:52
[2016-09-23] MEDS ORDERED: DIALYSIS PATIENT. MC PRN (14:15)
[2016-09-23] MEDS ORDERED: diphenhydrAMINE 50 MG/ML VIAL IV PRN ×2 (14:15)
[2016-09-23] MEDS ORDERED: IV NORMAL SALINE 1000ML BAG 1,000 ML IV PRN ×2 (14:15→14:30)
[2016-09-23] MEDS ORDERED: ALBUMIN HUMAN 25% 200 ML IV PRN (14:15)
--- NOTE | 2016-09-23 15:03 | PDOC2 ---
PALLIATIVE CARE Palliative Care Note Palliative Care Patient more alert at times. Spoke with daughter and aunt. Shared results of labs. Family wishes to continue current treatment plan LTAC may be appropriate in the near future. AZAR KHAN Sep 23, 2016 15:03
[2016-09-23] MEDS ORDERED: VANCOMYCIN 500 MG in IV NORMAL SALINE 100ML 100 ML IV SCH (16:00)
--- NOTE | 2016-09-23 17:39 | CONS ---
DATE OF CONSULTATION: 09/22/2016 CHIEF COMPLAINT: Penile lesion. HISTORY OF PRESENT ILLNESS: This is a 61-year-old male with multiple medical problems. He was admitted to the hospital when he had an episode of hypotension and unresponsiveness while undergoing hemodialysis. According to the family, the patient has been on a study ____ course for the last 10 weeks. He has been a patient at [facility] and then was transferred to an extended care facility and then from that extended care facility to the intermediate across the street from [facility]. He has a history of end-stage renal failure. It is my understanding he does not make any urine at all. Urology was consulted because he is found to have necrosis of the glans penis. According to the family, this may be 10 weeks old. Further history is unobtainable. The patient is not a reliable historian. ALLERGIES: No known drug allergies. PAST MEDICAL HISTORY: The patient has a history of end-stage renal failure. He is on hemodialysis. He has a history of atrial fibrillation and hypertension. PAST SURGICAL HISTORY: The patient evidently has had a pacemaker placed, left eye enucleation, left knee surgery, left shoulder surgery, and AV fistula placed in the right arm. SOCIAL HISTORY: Unobtainable from the patient. PHYSICAL EXAMINATION: GENERAL DESCRIPTION: A 61-year-old cachectic male, unable to provide much historical information. He does respond to pain and answers few questions with short sentences. ABDOMEN: Thin, negative for masses or palpation. There is no guarding or rigidity. BACK AND EXTREMITIES: On the patient's backside, he does have some skin breakdown or decubitus ulcers. He also has some ulcers on the heels of his feet. Once again, the patient has ulcerations on the heels, which are being tender ____ by the Wound Care. GENITALIA: The scrotum appears to be normal. There is no swelling or abnormalities noted. The penis was examined carefully. He has a necrotic glans penis. The remaining shaft of the penis appears to be normal to palpation and normal color. LABORATORY DATA: The patient's white blood cell count on admission was 30.7, today it is 25.2, hemoglobin 11.0, hematocrit 35.3, and platelet count is adequate. Chemistries: Creatinine 5.8, BUN 44. Electrolytes were normal. The patient's serum albumin 2.3. X-RAY STUDIES: Scrotal ultrasound was performed. This reveals significantly diminished blood flow to both testicles. Radiologist thinks this most likely reflects a systemic process such as a vascular disease. The patient underwent angiogram, which revealed scattered areas of vascular disease associated with both superficial femoral arteries and short segment of at least moderate stenosis associated with the left popliteal artery. IMPRESSION: 1. Sepsis - improving. 2. 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 SUGGESTIONS: We will continue to follow the main shaft of the penis, appears to be a normal and viable; only the glans penis appears to be necrotic. It may be necessary later as the patient's overall condition improves, he may need a distal penectomy. Thank you for the opportunity to participate in evaluation of this patient AUDI MONTEMAYOR DO DR: ROSE/argentina JOB#: [id number] / [id number]
[2016-09-23] MEDS: MICAFUNGIN 100 MG in IV DEXTROSE 5% 100 ML IV SCH (19:58)
[2016-09-23] MEDS ORDERED: DARBEPOETIN ALFA 60 MCG/0.3 ML DISP.SYRIN. SQ SCH (21:00)
[2016-09-24] VITALS (19 sets, daily range): BP systolic 102–165; BP diastolic 59–88
[2016-09-24] MEDS: MORPHINE SULFATE 2 MG/ML DISP.SYRIN. IV PRN ×4 (00:56→22:15)
[2016-09-24] MEDS: PIPERACILLIN/TAZOBACTAM 2.25 GM in IV NORMAL SALINE 50ML 50 ML IV SCH ×3 (04:28→22:15)
[2016-09-24 04:54] LABS: BASO % 0 % (0-3); EOS % 1 % (0-3); HEMATOCRIT 32.4 % (39.0-53.0); HEMOGLOBIN 10.6 g/dL (13.0-17.5); LYMPH # 0.9 x10^3/uL (1.0-4.8); LYMPH % 3 % (24-48); MEAN CORPUSCULAR HEMOGLOBIN 27 pg (25-35); MEAN CORPUSCULAR HGB CONC 33 g/dL (31-37); MEAN CORPUSCULAR VOLUME 84 fL (79-100); MONO % 9 % (0-9); NEUT % 87 % (31-73); PLATELET COUNT 240 x10^3/uL (140-400); RED BLOOD COUNT 3.88 x10^6/uL (4.30-5.70); RED CELL DISTRIBUTION WIDTH 15.6 % (11.5-14.5); WHITE BLOOD COUNT 25.2 x10^3/uL (4.0-11.0)
[2016-09-24 05:24] LABS: ALBUMIN 1.7 g/dL (3.4-5.0); CALCIUM 10.3 mg/dL (8.5-10.1); CREATININE 3.3 mg/dL (0.7-1.3); GFR 23.2; PHOSPHORUS 4.5 mg/dL (2.6-4.7); POTASSIUM 3.8 mmol/L (3.5-5.1)
[2016-09-24] MEDS: HEPARIN PF for SUB-Q USE 5,000 UNIT/0.5 ML VIAL. SQ SCH ×3 (05:51→22:14)
--- NOTE | 2016-09-24 09:23 | PDOC ---
Infectious Disease Note Subjective Subjective Periods of agitation and confusion per RN No fever last 24 hours. Denies pain, N/V PPN Supplemental O2 3LNC Soft stools Vital Sign Vital Signs Vital Signs Date Time Temp Pulse Resp B/P (MAP) Pulse Ox O2 Delivery O2 Flow Rate FiO2 09/24/16 08:00 Nasal Cannula 2.0 09/24/16 08:00 98.5 85 7 102/66 (78) 98.5 09/24/16 07:00 96 Physical Exam PHYSICAL EXAM GENERAL: Calm HEENT: Oral cavity dry NECK: Supple LUNGS: Clear HEART: S1S2, regular. AICD (left lateral chest) ABD: ND, BS present, soft, NT EXT: No edema, no cyanosis. RUE AV fistula. 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 follows few commands SKIN: No rash. glans penis some necrosis-tender LIJ. (09/22). clean Labs Lab Laboratory Tests Test 09/23/16 13:00 09/24/16 04:40 Lactic Acid Level 1.3 mmol/L (0.4-2.0) White Blood Count 25.2 x10^3/uL (4.0-11.0) Red Blood Count 3.88 x10^6/uL (4.30-5.70) Hemoglobin 10.6 g/dL (13.0-17.5) Hematocrit 32.4 % (39.0-53.0) Mean Corpuscular Volume 84 fL (79-100) Mean Corpuscular Hemoglobin 27 pg (25-35) Mean Corpuscular Hemoglobin Concent 33 g/dL (31-37) Red Cell Distribution Width 15.6 % (11.5-14.5) Platelet Count 240 x10^3/uL (140-400) Neutrophils (%) (Auto) 87 % (31-73) Lymphocytes (%) (Auto) 3 % (24-48) Monocytes (%) (Auto) 9 % (0-9) Eosinophils (%) (Auto) 1 % (0-3) Basophils (%) (Auto) 0 % (0-3) Neutrophils # (Auto) 22.1 x10^3uL (1.8-7.7) Lymphocytes # (Auto) 0.9 x10^3/uL (1.0-4.8) Monocytes # (Auto) 2.2 x10^3/uL (0.0-1.1) Eosinophils # (Auto) 0.1 x10^3/uL (0.0-0.7) Basophils # (Auto) 0.0 x10^3/uL (0.0-0.2) Sodium Level 135 mmol/L (136-145) Potassium Level 3.8 mmol/L (3.5-5.1) Chloride Level 94 mmol/L (98-107) Carbon Dioxide Level 30 mmol/L (21-32) Anion Gap 11 (6-14) Blood Urea Nitrogen 34 mg/dL (8-26) Creatinine 3.3 mg/dL (0.7-1.3) Estimated GFR (Cockcroft-Gault) 23.2 Glucose Level 157 mg/dL (70-99) Calcium Level 10.3 mg/dL (8.5-10.1) Phosphorus Level 4.5 mg/dL (2.6-4.7) Magnesium Level 1.9 mg/dL (1.8-2.4) Albumin 1.7 g/dL (3.4-5.0) Micro BLOOD CULT RESULT 1 Preliminary Serratia marcescens Antibiotic RSLT#1 Amoxicillin/Clavulanic Acid R Cefazolin R Cefepime S Ceftriaxone S Cefuroxime R Cephalothin R Ciprofloxacin S Ertapenem S Gentamicin S Imipenem S Levofloxacin S Nitrofurantoin R Piperacillin S Tetracycline S Tobramycin S Trimethoprim/Sulfa S Objective Assessment Fever. Leukocytosis, stable Sepsis, POA. Serratia so far Encephalopathy. Necrosis of the glans. Chronic kidney disease on hemodialysis. Peripheral arterial disease. Non-STEMI. Plan Plan of Care Vanc, Zosyn, Micafungin Tobra time one dose, 09/22. Vanc trough 19.9 Ammonia level <10 F/u labs and cultures Sputum culture Critically ill Attending Co-Sign The patient was seen and interviewed as well as examined at the bedside. The chart was reviewed. The case was discussed. Agree with the plan of care. SANDRA LUNDY APRN Sep 24, 2016 09:23 EMMA ESTEBAN MD Sep 24, 2016 12:30
[2016-09-24] MEDS: VANCOMYCIN PER PHARMACY MC PRN (09:38)
--- NOTE | 2016-09-24 10:24 | PDOC ---
PULMONARY PROGRESS NOTES Subjective AWAKE Vitals Vital Signs Date Time Temp Pulse Resp B/P (MAP) Pulse Ox O2 Delivery O2 Flow Rate FiO2 09/24/16 09:03 88 11 106/68 (81) 93 Room Air 09/24/16 08:00 2.0 09/24/16 08:00 98.5 98.5 General: Alert Lungs: Clear Cardiovascular: S1 Abdomen: Soft Extremities: No Edema, Other (glans necrosis) Labs Laboratory Tests Test 09/23/16 05:20 09/23/16 13:00 09/24/16 04:40 White Blood Count 24.6 x10^3/uL (4.0-11.0) 25.2 x10^3/uL (4.0-11.0) Red Blood Count 3.50 x10^6/uL (4.30-5.70) 3.88 x10^6/uL (4.30-5.70) Hemoglobin 9.6 g/dL (13.0-17.5) 10.6 g/dL (13.0-17.5) Hematocrit 30.1 % (39.0-53.0) 32.4 % (39.0-53.0) Mean Corpuscular Volume 86 fL (79-100) 84 fL (79-100) Mean Corpuscular Hemoglobin 27 pg (25-35) 27 pg (25-35) Mean Corpuscular Hemoglobin Concent 32 g/dL (31-37) 33 g/dL (31-37) Red Cell Distribution Width 15.5 % (11.5-14.5) 15.6 % (11.5-14.5) Platelet Count 223 x10^3/uL (140-400) 240 x10^3/uL (140-400) Neutrophils (%) (Auto) 91 % (31-73) 87 % (31-73) Lymphocytes (%) (Auto) 2 % (24-48) 3 % (24-48) Monocytes (%) (Auto) 7 % (0-9) 9 % (0-9) Eosinophils (%) (Auto) 1 % (0-3) 1 % (0-3) Basophils (%) (Auto) 0 % (0-3) 0 % (0-3) Neutrophils # (Auto) 22.2 x10^3uL (1.8-7.7) 22.1 x10^3uL (1.8-7.7) Lymphocytes # (Auto) 0.4 x10^3/uL (1.0-4.8) 0.9 x10^3/uL (1.0-4.8) Monocytes # (Auto) 1.6 x10^3/uL (0.0-1.1) 2.2 x10^3/uL (0.0-1.1) Eosinophils # (Auto) 0.2 x10^3/uL (0.0-0.7) 0.1 x10^3/uL (0.0-0.7) Basophils # (Auto) 0.1 x10^3/uL (0.0-0.2) 0.0 x10^3/uL (0.0-0.2) Sodium Level 135 mmol/L (136-145) 135 mmol/L (136-145) Potassium Level 4.8 mmol/L (3.5-5.1) 3.8 mmol/L (3.5-5.1) Chloride Level 96 mmol/L (98-107) 94 mmol/L (98-107) Carbon Dioxide Level 20 mmol/L (21-32) 30 mmol/L (21-32) Anion Gap 19 (6-14) 11 (6-14) Blood Urea Nitrogen 58 mg/dL (8-26) 34 mg/dL (8-26) Creatinine 6.0 mg/dL (0.7-1.3) 3.3 mg/dL (0.7-1.3) Estimated GFR (Cockcroft-Gault) 11.6 23.2 Glucose Level 138 mg/dL (70-99) 157 mg/dL (70-99) Calcium Level 9.4 mg/dL (8.5-10.1) 10.3 mg/dL (8.5-10.1) Phosphorus Level 6.0 mg/dL (2.6-4.7) 4.5 mg/dL (2.6-4.7) Magnesium Level 2.1 mg/dL (1.8-2.4) 1.9 mg/dL (1.8-2.4) Albumin 1.6 g/dL (3.4-5.0) 1.7 g/dL (3.4-5.0) Random Vancomycin Level 19.9 mcg/mL Lactic Acid Level 1.3 mmol/L (0.4-2.0) Laboratory Tests Test 09/23/16 13:00 09/24/16 04:40 Lactic Acid Level 1.3 mmol/L (0.4-2.0) White Blood Count 25.2 x10^3/uL (4.0-11.0) Red Blood Count 3.88 x10^6/uL (4.30-5.70) Hemoglobin 10.6 g/dL (13.0-17.5) Hematocrit 32.4 % (39.0-53.0) Mean Corpuscular Volume 84 fL (79-100) Mean Corpuscular Hemoglobin 27 pg (25-35) Mean Corpuscular Hemoglobin Concent 33 g/dL (31-37) Red Cell Distribution Width 15.6 % (11.5-14.5) Platelet Count 240 x10^3/uL (140-400) Neutrophils (%) (Auto) 87 % (31-73) Lymphocytes (%) (Auto) 3 % (24-48) Monocytes (%) (Auto) 9 % (0-9) Eosinophils (%) (Auto) 1 % (0-3) Basophils (%) (Auto) 0 % (0-3) Neutrophils # (Auto) 22.1 x10^3uL (1.8-7.7) Lymphocytes # (Auto) 0.9 x10^3/uL (1.0-4.8) Monocytes # (Auto) 2.2 x10^3/uL (0.0-1.1) Eosinophils # (Auto) 0.1 x10^3/uL (0.0-0.7) Basophils # (Auto) 0.0 x10^3/uL (0.0-0.2) Sodium Level 135 mmol/L (136-145) Potassium Level 3.8 mmol/L (3.5-5.1) Chloride Level 94 mmol/L (98-107) Carbon Dioxide Level 30 mmol/L (21-32) Anion Gap 11 (6-14) Blood Urea Nitrogen 34 mg/dL (8-26) Creatinine 3.3 mg/dL (0.7-1.3) Estimated GFR (Cockcroft-Gault) 23.2 Glucose Level 157 mg/dL (70-99) Calcium Level 10.3 mg/dL (8.5-10.1) Phosphorus Level 4.5 mg/dL (2.6-4.7) Magnesium Level 1.9 mg/dL (1.8-2.4) Albumin 1.7 g/dL (3.4-5.0) Medications Active Scripts Medications Dose Route/Sig Max Daily Dose Days Date Category Dulcolax (Bisacodyl) 10 Mg Supp.rect 10 Mg RC PRN DAILY PRN 09/22/16 Reported Oxycontin (Oxycodone HCl) 10 Mg Tab.er.12h 20 Mg PO BID 09/22/16 Reported Eliquis (Apixaban) 5 Mg Tablet 5 Mg PO BID 09/22/16 Reported Ondansetron Hcl 4 Mg Tablet 1 Tab PO PRN Q6HRS PRN 09/22/16 Reported Oxycodone Hcl 15 Mg Tablet 15 Mg PO Q4HRS PRN 09/22/16 Reported Acetaminophen 500 Mg Tablet 1 Tab PO Q4HRS PRN 09/22/16 Reported Ativan (Lorazepam) 0.5 Mg Tablet 0.5 Mg PO TID 09/22/16 Reported Senokot (Sennosides) 8.6 Mg Tablet 2 Tab PO BID 09/22/16 Reported Lipitor (Atorvastatin Calcium) 10 Mg Tablet 1 Tab PO QHS 09/22/16 Reported Fleet Enema (Na Phos,M-B/Na Phos,Di-Ba) 133 Ml Enema 133 Ml RC DAILY PRN 09/22/16 Reported Milk Of Magnesia (Magnesium Hydroxide) 2,400 Mg/10 Ml Oral.susp 2,400 Mg PO 09/22/16 Reported Melatonin 3 Mg Tablet 1 Tab PO QHS 09/22/16 Reported Vitamin B-12 (Cyanocobalamin (Vitamin B-12)) 1,000 Mcg Tablet 1 Tab PO DAILY 09/22/16 Reported Hydroxyzine Hcl 25 Mg Tablet 25 Mg PO QID PRN 09/22/16 Reported Fosrenol (Lanthanum Carbonate) 1,000 Mg Tab.chew 1,000 Mg PO TIDAC 09/22/16 Reported Aspir 81 (Aspirin) 81 Mg Tablet.dr 1 Tab PO DAILY 09/22/16 Reported Polyethylene Glycol 3350 255 Gm Powder 17 Gm PO DAILY 09/22/16 Reported Protonix (Pantoprazole Sodium) 40 Mg Tablet.dr 1 Tab PO DAILY 09/22/16 Reported Loratadine 10 Mg Tablet 1 Tab PO DAILY 09/22/16 Reported Renvela (Sevelamer Carbonate) 800 Mg Tablet 1 Tab PO TID 09/22/16 Reported Lidocaine Hcl Viscous (Lidocaine Hcl) 20 Mg/1 Ml Solution 5 Ml PO BID 09/22/16 Reported Aranesp Syringe (Darbepoetin [place] In Polysorbat) 60 Mcg/0.3 Ml Disp.syrin 60 Mcg SQ WEEKLY 09/22/16 Reported DURAGESIC 25mcg/hr (Fentanyl) 1 Each Patch.td72 1 Patch TP Q3DAYS 09/22/16 Reported Gabapentin 300 Mg Capsule 300 Mg PO TID 09/22/16 Reported Coreg (Carvedilol) 12.5 Mg Tablet 1 Tab PO BID 09/22/16 Reported Coreg (Carvedilol) 6.25 Mg Tablet 1 Tab PO BID 09/22/16 Reported Sensipar (Cinacalcet Hcl) 30 Mg Tablet 2 Tab PO DAILY 09/22/16 Reported Sertraline Hcl 25 Mg Tablet 25 Mg PO DAILY 09/22/16 Reported Bactrim Ds Tablet (Sulfamethoxazole/Trimethoprim) 1 Each Tablet 1 Tab PO BID 04/25/16 Rx [place] 5-325 Tablet (Acetaminophen/Hydrocodone Bitart) 1 Each Tablet 1-2 Tab PO Q4-6HRS 04/25/16 Rx Impression . 1. Sepsis syndrome. The etiology is related to necrotic glans penis. 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 CTA of the abdomen not so impressive 2. Marked leukocytosis, secondary to sepsis 3. History of tobacco use in the past. 4. End-stage renal disease, on hemodialysis. 5. Hypotension/shock, secondary to a combination of hypovolemia and early sepsis. Blood pressure is now more stabilized and he did not require pressors. Plan . 1. From a pulmonary standpoint, he is doing reasonably well on 2 liters nasal cannula. 2. Continue broad-spectrum antibiotics. 3. Follow white cell count 4. Follow Infectious Disease recommendations. 6. Follow Vascular Surgery recommendations. 7. Discussed with RN. pt is DNR now 8. ROLY BYERS MD Sep 24, 2016 10:24
--- NOTE | 2016-09-24 10:49 | PDOC ---
PROGRESS NOTES Chief Complaint Chief Complaint SERRATIA MARCESCENS BACTEREMIA LEukocytosis SEPSIS with organ dysfcn (transient HYPOTENSION) 1. Syncope while in HD 2. Necrotic glans penis with ACUTE pain 3. Bilaterally cold feet 4. Hypotension associated with HD 5. Sepsis with hypotension 6. ESRD On HD, ANURIC 6 Trop elevation in the background of sepsis and ESRD 7. Anemia of CKD 7. Elevated lactate 8. Acute encephalopathy sec to above 9. HYpercalcemia 10. MOd pCM 11. Elevated BNP 12. Penile wound 13. Rt varicocoele 14. DNR History of Present Illness History of Present Illness Same Minimally verbal which I think is voluntary NPO bec RN have doubts on capability to swallow BS final BLD CULT RESULT 1 Preliminary Serratia marcescens Recovered from aerobic bottle only. ANTIMICROBIAL SUSCEPTIBILITY Preliminary Comment S = Susceptible; I = Intermediate; R = Resistant P = Positive; N = Negative MICS are expressed in micrograms per mL Antibiotic RSLT#1 RSLT#2 RSLT#3 RSLT#4 Amoxicillin/Clavulanic Acid R Cefazolin R Cefepime S Ceftriaxone S Cefuroxime R Cephalothin R Ciprofloxacin S Ertapenem S Gentamicin S Imipenem S Levofloxacin S Nitrofurantoin R Piperacillin S Tetracycline S Tobramycin S Trimethoprim/Sulfa S Performed at: [facility] NO fevers WBC 25 ESR 90s Rpt lactate 1.3 FAmily considering palliative/hospice PLAN: HD per renal Follow ID recs OK from IM to t/o ICU DNR MOnitor leukocytosis, CBC again [facility] consult noted BP tends to run lowish RPt lactate is normal (1.3) Rcheck ESR [place] (was 90s few days ago) Outside DNR signed Dw MARK slade Vitals Vitals Vital Signs Date Time Temp Pulse Resp B/P (MAP) Pulse Ox O2 Delivery O2 Flow Rate FiO2 09/24/16 09:03 88 11 106/68 (81) 93 Room Air 09/24/16 08:00 2.0 09/24/16 08:00 98.5 98.5 Physical Exam General: No acute distress Heart: Normal S1, Normal S2, No murmurs, Other (tele:SR) Lungs: Clear Abdomen: Normal bowel sounds, Soft, No tenderness, No hepatosplenomegaly, No masses Extremities: Other (R AV fistula with palpable bruit, good pulses peripherally) Skin: No rashes, No breakdown, No significant lesion Labs LABS Laboratory Tests Test 09/23/16 13:00 09/24/16 04:40 Lactic Acid Level 1.3 mmol/L (0.4-2.0) White Blood Count 25.2 x10^3/uL (4.0-11.0) Red Blood Count 3.88 x10^6/uL (4.30-5.70) Hemoglobin 10.6 g/dL (13.0-17.5) Hematocrit 32.4 % (39.0-53.0) Mean Corpuscular Volume 84 fL (79-100) Mean Corpuscular Hemoglobin 27 pg (25-35) Mean Corpuscular Hemoglobin Concent 33 g/dL (31-37) Red Cell Distribution Width 15.6 % (11.5-14.5) Platelet Count 240 x10^3/uL (140-400) Neutrophils (%) (Auto) 87 % (31-73) Lymphocytes (%) (Auto) 3 % (24-48) Monocytes (%) (Auto) 9 % (0-9) Eosinophils (%) (Auto) 1 % (0-3) Basophils (%) (Auto) 0 % (0-3) Neutrophils # (Auto) 22.1 x10^3uL (1.8-7.7) Lymphocytes # (Auto) 0.9 x10^3/uL (1.0-4.8) Monocytes # (Auto) 2.2 x10^3/uL (0.0-1.1) Eosinophils # (Auto) 0.1 x10^3/uL (0.0-0.7) Basophils # (Auto) 0.0 x10^3/uL (0.0-0.2) Sodium Level 135 mmol/L (136-145) Potassium Level 3.8 mmol/L (3.5-5.1) Chloride Level 94 mmol/L (98-107) Carbon Dioxide Level 30 mmol/L (21-32) Anion Gap 11 (6-14) Blood Urea Nitrogen 34 mg/dL (8-26) Creatinine 3.3 mg/dL (0.7-1.3) Estimated GFR (Cockcroft-Gault) 23.2 Glucose Level 157 mg/dL (70-99) Calcium Level 10.3 mg/dL (8.5-10.1) Phosphorus Level 4.5 mg/dL (2.6-4.7) Magnesium Level 1.9 mg/dL (1.8-2.4) Albumin 1.7 g/dL (3.4-5.0) Review of Systems Review of Systems minimally verbal Assessment and Plan Assessmemt and Plan Problems Medical Problems: (1) Acute electrocardiogram changes Status: Acute (2) Open wound of penis Status: Acute (3) Sepsis Status: Acute Problems: Comment Review of Relevant I have reviewed the following items parvin (where applicable) has been applied. Labs Laboratory Tests Test 09/23/16 05:20 09/23/16 13:00 09/24/16 04:40 White Blood Count 24.6 x10^3/uL (4.0-11.0) 25.2 x10^3/uL (4.0-11.0) Red Blood Count 3.50 x10^6/uL (4.30-5.70) 3.88 x10^6/uL (4.30-5.70) Hemoglobin 9.6 g/dL (13.0-17.5) 10.6 g/dL (13.0-17.5) Hematocrit 30.1 % (39.0-53.0) 32.4 % (39.0-53.0) Mean Corpuscular Volume 86 fL (79-100) 84 fL (79-100) Mean Corpuscular Hemoglobin 27 pg (25-35) 27 pg (25-35) Mean Corpuscular Hemoglobin Concent 32 g/dL (31-37) 33 g/dL (31-37) Red Cell Distribution Width 15.5 % (11.5-14.5) 15.6 % (11.5-14.5) Platelet Count 223 x10^3/uL (140-400) 240 x10^3/uL (140-400) Neutrophils (%) (Auto) 91 % (31-73) 87 % (31-73) Lymphocytes (%) (Auto) 2 % (24-48) 3 % (24-48) Monocytes (%) (Auto) 7 % (0-9) 9 % (0-9) Eosinophils (%) (Auto) 1 % (0-3) 1 % (0-3) Basophils (%) (Auto) 0 % (0-3) 0 % (0-3) Neutrophils # (Auto) 22.2 x10^3uL (1.8-7.7) 22.1 x10^3uL (1.8-7.7) Lymphocytes # (Auto) 0.4 x10^3/uL (1.0-4.8) 0.9 x10^3/uL (1.0-4.8) Monocytes # (Auto) 1.6 x10^3/uL (0.0-1.1) 2.2 x10^3/uL (0.0-1.1) Eosinophils # (Auto) 0.2 x10^3/uL (0.0-0.7) 0.1 x10^3/uL (0.0-0.7) Basophils # (Auto) 0.1 x10^3/uL (0.0-0.2) 0.0 x10^3/uL (0.0-0.2) Sodium Level 135 mmol/L (136-145) 135 mmol/L (136-145) Potassium Level 4.8 mmol/L (3.5-5.1) 3.8 mmol/L (3.5-5.1) Chloride Level 96 mmol/L (98-107) 94 mmol/L (98-107) Carbon Dioxide Level 20 mmol/L (21-32) 30 mmol/L (21-32) Anion Gap 19 (6-14) 11 (6-14) Blood Urea Nitrogen 58 mg/dL (8-26) 34 mg/dL (8-26) Creatinine 6.0 mg/dL (0.7-1.3) 3.3 mg/dL (0.7-1.3) Estimated GFR (Cockcroft-Gault) 11.6 23.2 Glucose Level 138 mg/dL (70-99) 157 mg/dL (70-99) Calcium Level 9.4 mg/dL (8.5-10.1) 10.3 mg/dL (8.5-10.1) Phosphorus Level 6.0 mg/dL (2.6-4.7) 4.5 mg/dL (2.6-4.7) Magnesium Level 2.1 mg/dL (1.8-2.4) 1.9 mg/dL (1.8-2.4) Albumin 1.6 g/dL (3.4-5.0) 1.7 g/dL (3.4-5.0) Random Vancomycin Level 19.9 mcg/mL Lactic Acid Level 1.3 mmol/L (0.4-2.0) Laboratory Tests Test 09/23/16 13:00 09/24/16 04:40 Lactic Acid Level 1.3 mmol/L (0.4-2.0) White Blood Count 25.2 x10^3/uL (4.0-11.0) Red Blood Count 3.88 x10^6/uL (4.30-5.70) Hemoglobin 10.6 g/dL (13.0-17.5) Hematocrit 32.4 % (39.0-53.0) Mean Corpuscular Volume 84 fL (79-100) Mean Corpuscular Hemoglobin 27 pg (25-35) Mean Corpuscular Hemoglobin Concent 33 g/dL (31-37) Red Cell Distribution Width 15.6 % (11.5-14.5) Platelet Count 240 x10^3/uL (140-400) Neutrophils (%) (Auto) 87 % (31-73) Lymphocytes (%) (Auto) 3 % (24-48) Monocytes (%) (Auto) 9 % (0-9) Eosinophils (%) (Auto) 1 % (0-3) Basophils (%) (Auto) 0 % (0-3) Neutrophils # (Auto) 22.1 x10^3uL (1.8-7.7) Lymphocytes # (Auto) 0.9 x10^3/uL (1.0-4.8) Monocytes # (Auto) 2.2 x10^3/uL (0.0-1.1) Eosinophils # (Auto) 0.1 x10^3/uL (0.0-0.7) Basophils # (Auto) 0.0 x10^3/uL (0.0-0.2) Sodium Level 135 mmol/L (136-145) Potassium Level 3.8 mmol/L (3.5-5.1) Chloride Level 94 mmol/L (98-107) Carbon Dioxide Level 30 mmol/L (21-32) Anion Gap 11 (6-14) Blood Urea Nitrogen 34 mg/dL (8-26) Creatinine 3.3 mg/dL (0.7-1.3) Estimated GFR (Cockcroft-Gault) 23.2 Glucose Level 157 mg/dL (70-99) Calcium Level 10.3 mg/dL (8.5-10.1) Phosphorus Level 4.5 mg/dL (2.6-4.7) Magnesium Level 1.9 mg/dL (1.8-2.4) Albumin 1.7 g/dL (3.4-5.0) Microbiology 09/21/16 Blood Culture - Preliminary, Resulted 09/21/16 Blood Culture Result 1 (TEJAL) - Preliminary, Resulted 09/21/16 Antimicrobic Susceptibility - Preliminary, Resulted 09/21/16 Gram Stain - Final, Complete Medications Current Medications Ondansetron HCl (Zofran) 4 mg PRN Q8HRS PRN IV NAUSEA/VOMITING; Start 09/21/16 at 15:00; Stop 09/21/16 at 16:55; Status DC Morphine Sulfate 2 mg PRN Q2HR PRN IV PAIN; Start 09/21/16 at 15:00; Stop at 14:59; Status DC Ciprofloxacin Lactate 200 ml @ 200 mls/hr Q24H IV Last administered on 16:02; Start 09/21/16 at 15:00; Stop 09/22/16 at 16:44; Status DC Magnesium Sulfate/ Dextrose 50 ml @ 25 mls/hr PRN DAILY PRN IV for Mag < 1.7 on am labs; Start 09/21/16 at 16:00 Sodium Chloride 500 ml @ 0 mls/hr QID PRN IV map < 65 Last administered on 04:05; Start 09/21/16 at 16:15 Ondansetron HCl (Zofran) 4 mg PRN Q6HRS PRN IV NAUSEA/VOMITING; Start 09/21/16 at 16:52; Stop 09/22/16 at 16:51; Status DC Acetaminophen (Tylenol) 650 mg PRN Q6HRS PRN PO fever; Start 09/21/16 at 17:00 Acetaminophen/ Hydrocodone Bitart (Lortab 5/325) 1 tab PRN TID PRN PO pain; Start 09/21/16 at 17:00 Heparin Sodium (Porcine) (Heparin Sq) 5,000 unit Q8HRS SQ Last administered on 09/24/16 05:51; Start 09/21/16 at 22:00 Norepinephrine Bitartrate 250 ml @ 0 mls/hr CONT PRN IV SEE I/O RECORD; Start 09/21/16 at 17:45 Piperacillin Sod/ Tazobactam Sod 2.25 gm/Sodium Chloride 50 ml @ 100 mls/hr Q8HRS IV Last administered on 09/24/16 04:28; Start 09/21/16 at 18:00 Vancomycin HCl (Vanco Per Pharmacy) 1 each PRN DAILY PRN MC SEE COMMENTS Last administered on 09/24/16 09:38; Start 09/21/16 at 17:45 Micafungin Sodium 100 mg/Dextrose 100 ml @ 100 mls/hr Q24H IV Last administered on 09/23/16 19:58; Start 09/21/16 at 21:00 Vancomycin HCl 1.5 gm/Sodium Chloride 500 ml @ 250 mls/hr 1X ONCE IV Last administered on 09/21/16 20:18; Start 09/21/16 at 19:00; Stop 09/21/16 at 20:59 ; Status DC Vancomycin HCl 1 each 1X ONCE MC Last administered on 09/23/16 06:00; Start at 06:00; Stop 09/23/16 at 06:01; Status DC Acetaminophen (Acetaminophen Supp) 650 mg PRN Q6HRS PRN [place] MILD PAIN / TEMP; Start 09/22/16 at 00:30 Labetalol HCl (Normodyne) 10 mg PRN Q4HRS PRN IVP HYPERTENSION, SEE COMMENTS; Start 09/22/16 at 00:30 Amino Acids/ Glycerin/ Electrolytes 1,000 ml @ 80 mls/hr [id number] IV Last administered on 09/23/16 23:18; Start 09/22/16 at 08:45 Lidocaine/Sodium Bicarbonate (Buffered Lidocaine 1%) 3 ml 1X ONCE IJ Last administered on 09/22/16 09:29; Start 09/22/16 at 08:45; Stop 09/22/16 at 08:48; Status DC Heparin Sodium/ Sodium Chloride 60 unit 1X ONCE IV Last administered on 09:30; Start 09/22/16 at 08:45; Stop 09/22/16 at 08:48; Status DC Iohexol (Omnipaque 350 Mg/ml) 95 ml 1X ONCE IV Last administered on 09/22/16 11:05; Start 09/22/16 at 11:00; Stop 09/22/16 at 11:01; Status DC Info (Do NOT chart on this entry -- for MONITORING) 1 each PRN DAILY PRN MC SEE COMMENTS; Start 09/22/16 at 11:00; Stop 09/24/16 at 10:59 Sodium Chloride 500 ml @ 500 mls/hr 1X ONCE IV Last administered on 09/22/16 12:00; Start 09/22/16 at 12:00; Stop 09/22/16 at 15:55; Status DC Tobramycin Sulfate (Nebcin Per Pharmacy) 1 each PRN DAILY PRN MC SEE COMMENTS Last administered on 09/22/16 17:08; Start 09/22/16 at 16:45; Stop 09/22/16 at 17: 11; Status DC Tobramycin Sulfate 130 mg/ Sodium Chloride 53.25 ml @ 106.5 mls/ hr ONCE ONCE IV Last administered on 09/22/16 17:58; Start 09/22/16 at 17:00; Stop 09/22/16 at 17:29; Status DC Tobramycin Sulfate (Nebcin Per Pharmacy) 1 each 1X ONCE MC ; Start 09/22/16 at 17:15; Stop 09/22/16 at 17:16; Status DC Vancomycin HCl 500 mg/Sodium Chloride 100 ml @ 100 mls/hr QMWF IV Last administered on 09/23/16 19:58; Start 09/23/16 at 16:00 Darbepoetin Jackson (Aranesp) 60 mcg WEEKLYHS SQ Last administered on 09/23/16 20: 56; Start 09/23/16 at 21:00 Sodium Chloride 1,000 ml @ 1,000 mls/hr Q1H PRN IV hypotension; Start 09/23/16 at 14:30; Stop 09/23/16 at 19:00; Status DC Albumin Human 200 ml @ 200 mls/hr 1X PRN PRN IV Hypotension; Start 09/23/16 at 14:15; Stop 09/23/16 at 21:00; Status DC Diphenhydramine HCl (Benadryl) 25 mg 1X PRN PRN IV ITCHING; Start 09/23/16 at 14 :15; Stop 09/23/16 at 21:00; Status DC Diphenhydramine HCl (Benadryl) 25 mg 1X PRN PRN IV ITCHING; Start 09/23/16 at 14 :15; Stop 09/23/16 at 21:00; Status DC Sodium Chloride 1,000 ml @ 400 mls/hr Q2H30M PRN IV PATENCY; Start 09/23/16 at 14:15; Stop 09/23/16 at 21:00; Status DC Info (PHARMACY MONITORING -- do not chart) 1 each PRN DAILY PRN MC SEE COMMENTS ; Start 09/23/16 at 14:15 Morphine Sulfate 1 mg PRN Q2HR PRN IV PAIN Last administered on 09/24/16t 04:40 ; Start 09/24/16 at 00:45 Active Scripts Active Bactrim Ds Tablet (Sulfamethoxazole/Trimethoprim) 1 Each Tablet 1 Tab PO BID [place] 5-325 Tablet (Acetaminophen/Hydrocodone Bitart) 1 Each Tablet 1-2 Tab PO Q4-6HRS Reported Dulcolax (Bisacodyl) 10 Mg Supp.rect 10 Mg RC PRN DAILY PRN Oxycontin (Oxycodone HCl) 10 Mg Tab.er.12h 20 Mg PO BID Eliquis (Apixaban) 5 Mg Tablet 5 Mg PO BID Ondansetron Hcl 4 Mg Tablet 1 Tab PO PRN Q6HRS PRN Oxycodone Hcl 15 Mg Tablet 15 Mg PO Q4HRS PRN Acetaminophen 500 Mg Tablet 1 Tab PO Q4HRS PRN Ativan (Lorazepam) 0.5 Mg Tablet 0.5 Mg PO TID Senokot (Sennosides) 8.6 Mg Tablet 2 Tab PO BID Lipitor (Atorvastatin Calcium) 10 Mg Tablet 1 Tab PO QHS Fleet Enema (Na Phos,M-B/Na Phos,Di-Ba) 133 Ml Enema 133 Ml RC DAILY PRN Milk Of Magnesia (Magnesium Hydroxide) 2,400 Mg/10 Ml Oral.susp 2,400 Mg PO Melatonin 3 Mg Tablet 1 Tab PO QHS Vitamin B-12 (Cyanocobalamin (Vitamin B-12)) 1,000 Mcg Tablet 1 Tab PO DAILY Hydroxyzine Hcl 25 Mg Tablet 25 Mg PO QID PRN Fosrenol (Lanthanum Carbonate) 1,000 Mg Tab.chew 1,000 Mg PO TIDAC Aspir 81 (Aspirin) 81 Mg Tablet.dr 1 Tab PO DAILY Polyethylene Glycol 3350 255 Gm Powder 17 Gm PO DAILY Protonix (Pantoprazole Sodium) 40 Mg Tablet.dr 1 Tab PO DAILY Loratadine 10 Mg Tablet 1 Tab PO DAILY Renvela (Sevelamer Carbonate) 800 Mg Tablet 1 Tab PO TID Lidocaine Hcl Viscous (Lidocaine Hcl) 20 Mg/1 Ml Solution 5 Ml PO BID Aranesp Syringe (Darbepoetin [place] In Polysorbat) 60 Mcg/0.3 Ml Disp.syrin 60 Mcg SQ WEEKLY DURAGESIC 25mcg/hr (Fentanyl) 1 Each Patch.td72 1 Patch TP Q3DAYS Gabapentin 300 Mg Capsule 300 Mg PO TID Coreg (Carvedilol) 12.5 Mg Tablet 1 Tab PO BID Coreg (Carvedilol) 6.25 Mg Tablet 1 Tab PO BID Sensipar (Cinacalcet Hcl) 30 Mg Tablet 2 Tab PO DAILY Sertraline Hcl 25 Mg Tablet 25 Mg PO DAILY Vitals/I & O Vital Sign - Last 24 Hours 09/23/16 09/23/16 09/23/16 09/23/16 11:12 12:09 12:23 13:01 Temp 98.4 98.4 Pulse 80 78 83 Resp 13 11 10 B/P (MAP) 101/62 (75) 109/65 (80) 101/56 (71) Pulse Ox 100 100 100 O2 Delivery Nasal Cannula Nasal Cannula Nasal Cannula Nasal Cannula O2 Flow Rate 2.0 2.0 2.0 2.0 09/23/16 09/23/16 09/23/16 09/23/16 14:12 15:00 16:06 16:09 Pulse 83 82 88 Resp 14 14 11 B/P (MAP) 99/55 (70) 112/63 (79) 163/82 (109) Pulse Ox 100 100 100 O2 Delivery Nasal Cannula Nasal Cannula Nasal Cannula Nasal Cannula O2 Flow Rate 2.0 2.0 2.0 2.0 09/23/16 09/23/16 09/23/16 09/23/16 17:27 18:03 19:00 20:00 Temp 98.6 98.6 Pulse 94 91 98 102 Resp 10 10 10 10 B/P (MAP) 161/81 (107) 164/87 (112) 150/70 (96) 132/69 (90) Pulse Ox 100 100 100 100 O2 Delivery Nasal Cannula Nasal Cannula Nasal Cannula Nasal Cannula O2 Flow Rate 2.0 2.0 2.0 2.0 09/23/16 09/23/16 09/23/16 09/23/16 20:00 21:00 22:00 23:00 Pulse 88 89 85 Resp 10 10 10 B/P (MAP) 134/72 (92) 124/74 (91) 141/70 (93) Pulse Ox 99 99 98 O2 Delivery Nasal Cannula Nasal Cannula Nasal Cannula Nasal Cannula O2 Flow Rate 2.0 2.0 2.0 2.0 09/23/16 09/24/16 09/24/16 09/24/16 23:59 00:00 00:56 01:00 Temp 98.2 98.2 Pulse 87 89 Resp 16 16 14 B/P (MAP) 142/77 (98) 122/70 (87) Pulse Ox 98 99 O2 Delivery Nasal Cannula Nasal Cannula Nasal Cannula Nasal Cannula O2 Flow Rate 2.0 2.0 2.0 09/24/16 09/24/16 09/24/16 09/24/16 01:26 02:00 03:00 04:00 Pulse 81 85 Resp 14 14 B/P (MAP) 150/70 (96) 159/70 (99) Pulse Ox 99 99 99 O2 Delivery Nasal Cannula Nasal Cannula Nasal Cannula O2 Flow Rate 2.0 2.0 2.0 09/24/16 09/24/16 09/24/16 09/24/16 04:00 04:40 05:00 05:10 Temp 98.9 98.9 Pulse 83 82 Resp 14 18 14 18 B/P (MAP) 142/59 (86) 147/77 (100) Pulse Ox 98 99 O2 Delivery Nasal Cannula Nasal Cannula Nasal Cannula Nasal Cannula O2 Flow Rate 2.0 2.0 2.0 2.0 09/24/16 09/24/16 09/24/16 09/24/16 06:00 07:00 08:00 08:00 Temp 98.5 98.5 Pulse 81 89 85 Resp 14 10 7 B/P (MAP) 140/77 (98) 165/87 (113) 102/66 (78) Pulse Ox 99 96 O2 Delivery Nasal Cannula Nasal Cannula Room Air Nasal Cannula O2 Flow Rate 2.0 2.0 93.0 2.0 09/24/16 09:03 Pulse 88 Resp 11 B/P (MAP) 106/68 (81) Pulse Ox 93 O2 Delivery Room Air Intake and Output 09/23/16 09/23/16 09/24/16 15:00 23:00 07:00 Intake Total 980 ml 1322 ml Balance 980 ml 1322 ml Nutrition Consultation Dietary Evaluation: Recommendations by RD: Increase Calorie Intake, Protein supplementation, PPN/ TPN Comments: Pt on PPN @ 80 ml/hr - this provides 470 calories (25% estimated calorie needs) and 55 grams of protein (70% estimated protein Rec. speech evaluation to determine need for modified diet Expected Outcomes/Goals: meet 75% estimated nutrition needs Malnutrition Findings: Malnutrition related to morbid: No Weight Status: Appropriate SABINE LE MD Sep 24, 2016 10:49
[2016-09-24] MEDS: AMINO AC 3%/ELECTROLYTE/GLYCER 1,000 ML IV SCH (11:24)
[2016-09-24] MEDS: MICAFUNGIN 100 MG in IV DEXTROSE 5% 100 ML IV SCH (21:14)
[2016-09-25] MEDS: MORPHINE SULFATE 2 MG/ML DISP.SYRIN. IV PRN ×2 (01:49→09:00)
[2016-09-25 03:00] VITALS: BP 153/85
[2016-09-25] MEDS: PIPERACILLIN/TAZOBACTAM 2.25 GM in IV NORMAL SALINE 50ML 50 ML IV SCH ×3 (05:36→22:31)
[2016-09-25] MEDS: HEPARIN PF for SUB-Q USE 5,000 UNIT/0.5 ML VIAL. SQ SCH ×3 (05:37→22:42)
[2016-09-25 06:15] LABS: ALBUMIN 1.5 g/dL (3.4-5.0); CALCIUM 10.2 mg/dL (8.5-10.1); CREATININE 4.3 mg/dL (0.7-1.3); GFR 17.1; PHOSPHORUS 4.7 mg/dL (2.6-4.7); POTASSIUM 4.3 mmol/L (3.5-5.1)
[2016-09-25 07:00] VITALS: BP 158/82
[2016-09-25 07:25] LABS: BASO # 0.1 x10^3/uL (0.0-0.2); BASO % 0 % (0-3); EOS % 1 % (0-3); HEMATOCRIT 33.7 % (39.0-53.0); HEMOGLOBIN 10.7 g/dL (13.0-17.5); LYMPH # 1.3 x10^3/uL (1.0-4.8); LYMPH % 6 % (24-48); MEAN CORPUSCULAR HEMOGLOBIN 27 pg (25-35); MEAN CORPUSCULAR HGB CONC 32 g/dL (31-37); MEAN CORPUSCULAR VOLUME 85 fL (79-100); MONO % 11 % (0-9); NEUT % 82 % (31-73); PLATELET COUNT 235 x10^3/uL (140-400); RED BLOOD COUNT 3.97 x10^6/uL (4.30-5.70); RED CELL DISTRIBUTION WIDTH 15.6 % (11.5-14.5); WHITE BLOOD COUNT 20.6 x10^3/uL (4.0-11.0)
--- NOTE | 2016-09-25 10:01 | PDOC ---
PROGRESS NOTES Chief Complaint Chief Complaint SERRATIA MARCESCENS BACTEREMIA LEukocytosis SEPSIS with organ dysfcn (transient HYPOTENSION) 1. Syncope while in HD 2. Necrotic glans penis with ACUTE pain 3. Bilaterally cold feet 4. Hypotension associated with HD 5. Sepsis with hypotension 6. ESRD On HD, ANURIC 6 Trop elevation in the background of sepsis and ESRD 7. Anemia of CKD 7. Elevated lactate 8. Acute encephalopathy sec to above 9. HYpercalcemia 10. MOd pCM 11. Elevated BNP 12. Penile wound 13. Rt varicocoele 14. DNR History of Present Illness History of Present Illness Same Minimally verbal which I think is voluntary NPO bec RN have doubts on capability to swallow- refused ATTENDING PSYCHIATRIST BS final BLD CULT RESULT 1 Preliminary Serratia marcescens Recovered from aerobic bottle only. ANTIMICROBIAL SUSCEPTIBILITY Preliminary Comment S = Susceptible; I = Intermediate; R = Resistant P = Positive; N = Negative MICS are expressed in micrograms per mL Antibiotic RSLT#1 RSLT#2 RSLT#3 RSLT#4 Amoxicillin/Clavulanic Acid R Cefazolin R Cefepime S Ceftriaxone S Cefuroxime R Cephalothin R Ciprofloxacin S Ertapenem S Gentamicin S Imipenem S Levofloxacin S Nitrofurantoin R Piperacillin S Tetracycline S Tobramycin S Trimethoprim/Sulfa S Performed at: [facility] NO fevers WBC 25 ESR 90s Rpt lactate 1.3 FAmily considering palliative/hospice PLAN: HD per renal OK to t.o ICU I will go ahead and start a gI soft diet DNR Follow ID recs (no fevers, no white ct) Vitals Vitals Vital Signs Date Time Temp Pulse Resp B/P (MAP) Pulse Ox O2 Delivery O2 Flow Rate FiO2 09/25/16 09:00 10 100 Nasal Cannula 2.0 09/25/16 07:00 98.0 86 158/82 (107) 98.0 Physical Exam General: No acute distress Heart: Normal S1, Normal S2, No murmurs, Other (tele:SR) Lungs: Clear Abdomen: Normal bowel sounds, Soft, No tenderness, No hepatosplenomegaly, No masses Extremities: Other (R AV fistula with palpable bruit, good pulses peripherally) Skin: No rashes, No breakdown, No significant lesion Labs LABS Laboratory Tests Test 09/24/16 11:20 09/25/16 05:48 09/25/16 06:50 Glucose (Fingerstick) 156 mg/dL (70-99) Sodium Level 133 mmol/L (136-145) Potassium Level 4.3 mmol/L (3.5-5.1) Chloride Level 93 mmol/L (98-107) Carbon Dioxide Level 29 mmol/L (21-32) Anion Gap 11 (6-14) Blood Urea Nitrogen 54 mg/dL (8-26) Creatinine 4.3 mg/dL (0.7-1.3) Estimated GFR (Cockcroft-Gault) 17.1 Glucose Level 179 mg/dL (70-99) Calcium Level 10.2 mg/dL (8.5-10.1) Phosphorus Level 4.7 mg/dL (2.6-4.7) Magnesium Level 2.3 mg/dL (1.8-2.4) Albumin 1.5 g/dL (3.4-5.0) White Blood Count 20.6 x10^3/uL (4.0-11.0) Red Blood Count 3.97 x10^6/uL (4.30-5.70) Hemoglobin 10.7 g/dL (13.0-17.5) Hematocrit 33.7 % (39.0-53.0) Mean Corpuscular Volume 85 fL (79-100) Mean Corpuscular Hemoglobin 27 pg (25-35) Mean Corpuscular Hemoglobin Concent 32 g/dL (31-37) Red Cell Distribution Width 15.6 % (11.5-14.5) Platelet Count 235 x10^3/uL (140-400) Neutrophils (%) (Auto) 82 % (31-73) Lymphocytes (%) (Auto) 6 % (24-48) Monocytes (%) (Auto) 11 % (0-9) Eosinophils (%) (Auto) 1 % (0-3) Basophils (%) (Auto) 0 % (0-3) Neutrophils # (Auto) 16.8 x10^3uL (1.8-7.7) Lymphocytes # (Auto) 1.3 x10^3/uL (1.0-4.8) Monocytes # (Auto) 2.3 x10^3/uL (0.0-1.1) Eosinophils # (Auto) 0.1 x10^3/uL (0.0-0.7) Basophils # (Auto) 0.1 x10^3/uL (0.0-0.2) Erythrocyte Sedimentation Rate 117 (0-15) Review of Systems Review of Systems uncooperative Assessment and Plan Assessmemt and Plan Problems Medical Problems: (1) Acute electrocardiogram changes Status: Acute (2) Open wound of penis Status: Acute (3) Sepsis Status: Acute Problems: Comment Review of Relevant I have reviewed the following items parvin (where applicable) has been applied. Labs Laboratory Tests Test 09/23/16 13:00 09/24/16 04:40 09/24/16 11:20 09/25/16 05:48 Lactic Acid Level 1.3 mmol/L (0.4-2.0) White Blood Count 25.2 x10^3/uL (4.0-11.0) Red Blood Count 3.88 x10^6/uL (4.30-5.70) Hemoglobin 10.6 g/dL (13.0-17.5) Hematocrit 32.4 % (39.0-53.0) Mean Corpuscular Volume 84 fL (79-100) Mean Corpuscular Hemoglobin 27 pg (25-35) Mean Corpuscular Hemoglobin Concent 33 g/dL (31-37) Red Cell Distribution Width 15.6 % (11.5-14.5) Platelet Count 240 x10^3/uL (140-400) Neutrophils (%) (Auto) 87 % (31-73) Lymphocytes (%) (Auto) 3 % (24-48) Monocytes (%) (Auto) 9 % (0-9) Eosinophils (%) (Auto) 1 % (0-3) Basophils (%) (Auto) 0 % (0-3) Neutrophils # (Auto) 22.1 x10^3uL (1.8-7.7) Lymphocytes # (Auto) 0.9 x10^3/uL (1.0-4.8) Monocytes # (Auto) 2.2 x10^3/uL (0.0-1.1) Eosinophils # (Auto) 0.1 x10^3/uL (0.0-0.7) Basophils # (Auto) 0.0 x10^3/uL (0.0-0.2) Sodium Level 135 mmol/L (136-145) 133 mmol/L (136-145) Potassium Level 3.8 mmol/L (3.5-5.1) 4.3 mmol/L (3.5-5.1) Chloride Level 94 mmol/L (98-107) 93 mmol/L (98-107) Carbon Dioxide Level 30 mmol/L (21-32) 29 mmol/L (21-32) Anion Gap 11 (6-14) 11 (6-14) Blood Urea Nitrogen 34 mg/dL (8-26) 54 mg/dL (8-26) Creatinine 3.3 mg/dL (0.7-1.3) 4.3 mg/dL (0.7-1.3) Estimated GFR (Cockcroft-Gault) 23.2 17.1 Glucose Level 157 mg/dL (70-99) 179 mg/dL (70-99) Calcium Level 10.3 mg/dL (8.5-10.1) 10.2 mg/dL (8.5-10.1) Phosphorus Level 4.5 mg/dL (2.6-4.7) 4.7 mg/dL (2.6-4.7) Magnesium Level 1.9 mg/dL (1.8-2.4) 2.3 mg/dL (1.8-2.4) Albumin 1.7 g/dL (3.4-5.0) 1.5 g/dL (3.4-5.0) Glucose (Fingerstick) 156 mg/dL (70-99) Test 09/25/16 06:50 White Blood Count 20.6 x10^3/uL (4.0-11.0) Red Blood Count 3.97 x10^6/uL (4.30-5.70) Hemoglobin 10.7 g/dL (13.0-17.5) Hematocrit 33.7 % (39.0-53.0) Mean Corpuscular Volume 85 fL (79-100) Mean Corpuscular Hemoglobin 27 pg (25-35) Mean Corpuscular Hemoglobin Concent 32 g/dL (31-37) Red Cell Distribution Width 15.6 % (11.5-14.5) Platelet Count 235 x10^3/uL (140-400) Neutrophils (%) (Auto) 82 % (31-73) Lymphocytes (%) (Auto) 6 % (24-48) Monocytes (%) (Auto) 11 % (0-9) Eosinophils (%) (Auto) 1 % (0-3) Basophils (%) (Auto) 0 % (0-3) Neutrophils # (Auto) 16.8 x10^3uL (1.8-7.7) Lymphocytes # (Auto) 1.3 x10^3/uL (1.0-4.8) Monocytes # (Auto) 2.3 x10^3/uL (0.0-1.1) Eosinophils # (Auto) 0.1 x10^3/uL (0.0-0.7) Basophils # (Auto) 0.1 x10^3/uL (0.0-0.2) Erythrocyte Sedimentation Rate 117 (0-15) Laboratory Tests Test 09/24/16 11:20 09/25/16 05:48 09/25/16 06:50 Glucose (Fingerstick) 156 mg/dL (70-99) Sodium Level 133 mmol/L (136-145) Potassium Level 4.3 mmol/L (3.5-5.1) Chloride Level 93 mmol/L (98-107) Carbon Dioxide Level 29 mmol/L (21-32) Anion Gap 11 (6-14) Blood Urea Nitrogen 54 mg/dL (8-26) Creatinine 4.3 mg/dL (0.7-1.3) Estimated GFR (Cockcroft-Gault) 17.1 Glucose Level 179 mg/dL (70-99) Calcium Level 10.2 mg/dL (8.5-10.1) Phosphorus Level 4.7 mg/dL (2.6-4.7) Magnesium Level 2.3 mg/dL (1.8-2.4) Albumin 1.5 g/dL (3.4-5.0) White Blood Count 20.6 x10^3/uL (4.0-11.0) Red Blood Count 3.97 x10^6/uL (4.30-5.70) Hemoglobin 10.7 g/dL (13.0-17.5) Hematocrit 33.7 % (39.0-53.0) Mean Corpuscular Volume 85 fL (79-100) Mean Corpuscular Hemoglobin 27 pg (25-35) Mean Corpuscular Hemoglobin Concent 32 g/dL (31-37) Red Cell Distribution Width 15.6 % (11.5-14.5) Platelet Count 235 x10^3/uL (140-400) Neutrophils (%) (Auto) 82 % (31-73) Lymphocytes (%) (Auto) 6 % (24-48) Monocytes (%) (Auto) 11 % (0-9) Eosinophils (%) (Auto) 1 % (0-3) Basophils (%) (Auto) 0 % (0-3) Neutrophils # (Auto) 16.8 x10^3uL (1.8-7.7) Lymphocytes # (Auto) 1.3 x10^3/uL (1.0-4.8) Monocytes # (Auto) 2.3 x10^3/uL (0.0-1.1) Eosinophils # (Auto) 0.1 x10^3/uL (0.0-0.7) Basophils # (Auto) 0.1 x10^3/uL (0.0-0.2) Erythrocyte Sedimentation Rate 117 (0-15) Microbiology 09/21/16 Blood Culture - Preliminary, Resulted 09/21/16 Blood Culture Result 1 (TEJAL) - Preliminary, Resulted 09/21/16 Antimicrobic Susceptibility - Preliminary, Resulted 09/21/16 Gram Stain - Final, Complete Medications Current Medications Ondansetron HCl (Zofran) 4 mg PRN Q8HRS PRN IV NAUSEA/VOMITING; Start 09/21/16 at 15:00; Stop 09/21/16 at 16:55; Status DC Morphine Sulfate 2 mg PRN Q2HR PRN IV PAIN; Start 09/21/16 at 15:00; Stop at 14:59; Status DC Ciprofloxacin Lactate 200 ml @ 200 mls/hr Q24H IV Last administered on 16:02; Start 09/21/16 at 15:00; Stop 09/22/16 at 16:44; Status DC Magnesium Sulfate/ Dextrose 50 ml @ 25 mls/hr PRN DAILY PRN IV for Mag < 1.7 on am labs; Start 09/21/16 at 16:00 Sodium Chloride 500 ml @ 0 mls/hr QID PRN IV map < 65 Last administered on 04:05; Start 09/21/16 at 16:15 Ondansetron HCl (Zofran) 4 mg PRN Q6HRS PRN IV NAUSEA/VOMITING; Start 09/21/16 at 16:52; Stop 09/22/16 at 16:51; Status DC Acetaminophen (Tylenol) 650 mg PRN Q6HRS PRN PO fever; Start 09/21/16 at 17:00 Acetaminophen/ Hydrocodone Bitart (Lortab 5/325) 1 tab PRN TID PRN PO pain; Start 09/21/16 at 17:00 Heparin Sodium (Porcine) (Heparin Sq) 5,000 unit Q8HRS SQ Last administered on 09/25/16 05:37; Start 09/21/16 at 22:00 Norepinephrine Bitartrate 250 ml @ 0 mls/hr CONT PRN IV SEE I/O RECORD; Start 09/21/16 at 17:45 Piperacillin Sod/ Tazobactam Sod 2.25 gm/Sodium Chloride 50 ml @ 100 mls/hr Q8HRS IV Last administered on 09/25/16 05:36; Start 09/21/16 at 18:00 Vancomycin HCl (Vanco Per Pharmacy) 1 each PRN DAILY PRN MC SEE COMMENTS Last administered on 09/24/16 09:38; Start 09/21/16 at 17:45 Micafungin Sodium 100 mg/Dextrose 100 ml @ 100 mls/hr Q24H IV Last administered on 09/24/16 21:14; Start 09/21/16 at 21:00 Vancomycin HCl 1.5 gm/Sodium Chloride 500 ml @ 250 mls/hr 1X ONCE IV Last administered on 09/21/16 20:18; Start 09/21/16 at 19:00; Stop 09/21/16 at 20:59 ; Status DC Vancomycin HCl 1 each 1X ONCE MC Last administered on 09/23/16 06:00; Start at 06:00; Stop 09/23/16 at 06:01; Status DC Acetaminophen (Acetaminophen Supp) 650 mg PRN Q6HRS PRN NV MILD PAIN / TEMP; Start 09/22/16 at 00:30 Labetalol HCl (Normodyne) 10 mg PRN Q4HRS PRN IVP HYPERTENSION, SEE COMMENTS; Start 09/22/16 at 00:30 Amino Acids/ Glycerin/ Electrolytes 1,000 ml @ 80 mls/hr [id number] IV Last administered on 09/23/16 00:00; Start 09/22/16 at 08:45 Lidocaine/Sodium Bicarbonate (Buffered Lidocaine 1%) 3 ml 1X ONCE IJ Last administered on 09/22/16 09:29; Start 09/22/16 at 08:45; Stop 09/22/16 at 08:48; Status DC Heparin Sodium/ Sodium Chloride 60 unit 1X ONCE IV Last administered on 09:30; Start 09/22/16 at 08:45; Stop 09/22/16 at 08:48; Status DC Iohexol (Omnipaque 350 Mg/ml) 95 ml 1X ONCE IV Last administered on 09/22/16 11:05; Start 09/22/16 at 11:00; Stop 09/22/16 at 11:01; Status DC Info (Do NOT chart on this entry -- for MONITORING) 1 each PRN DAILY PRN MC SEE COMMENTS; Start 09/22/16 at 11:00; Stop 09/24/16 at 10:59; Status DC Sodium Chloride 500 ml @ 500 mls/hr 1X ONCE IV Last administered on 09/22/16 12:00; Start 09/22/16 at 12:00; Stop 09/22/16 at 15:55; Status DC Tobramycin Sulfate (Nebcin Per Pharmacy) 1 each PRN DAILY PRN MC SEE COMMENTS Last administered on 09/22/16 17:08; Start 09/22/16 at 16:45; Stop 09/22/16 at 17: 11; Status DC Tobramycin Sulfate 130 mg/ Sodium Chloride 53.25 ml @ 106.5 mls/ hr ONCE ONCE IV Last administered on 09/22/16 17:58; Start 09/22/16 at 17:00; Stop 09/22/16 at 17:29; Status DC Tobramycin Sulfate (Nebcin Per Pharmacy) 1 each 1X ONCE MC ; Start 09/22/16 at 17:15; Stop 09/22/16 at 17:16; Status DC Vancomycin HCl 500 mg/Sodium Chloride 100 ml @ 100 mls/hr QMWF IV Last administered on 09/23/16 19:58; Start 09/23/16 at 16:00 Darbepoetin Jackson (Aranesp) 60 mcg WEEKLYHS SQ Last administered on 09/23/16 20: 56; Start 09/23/16 at 21:00 Sodium Chloride 1,000 ml @ 1,000 mls/hr Q1H PRN IV hypotension; Start 09/23/16 at 14:30; Stop 09/23/16 at 19:00; Status DC Albumin Human 200 ml @ 200 mls/hr 1X PRN PRN IV Hypotension; Start 09/23/16 at 14:15; Stop 09/23/16 at 21:00; Status DC Diphenhydramine HCl (Benadryl) 25 mg 1X PRN PRN IV ITCHING; Start 09/23/16 at 14 :15; Stop 09/23/16 at 21:00; Status DC Diphenhydramine HCl (Benadryl) 25 mg 1X PRN PRN IV ITCHING; Start 09/23/16 at 14 :15; Stop 09/23/16 at 21:00; Status DC Sodium Chloride 1,000 ml @ 400 mls/hr Q2H30M PRN IV PATENCY; Start 09/23/16 at 14:15; Stop 09/23/16 at 21:00; Status DC Info (PHARMACY MONITORING -- do not chart) 1 each PRN DAILY PRN MC SEE COMMENTS ; Start 09/23/16 at 14:15 Morphine Sulfate 1 mg PRN Q2HR PRN IV PAIN Last administered on 09/25/16 09:00 ; Start 09/24/16 at 00:45 Active Scripts Active Bactrim Ds Tablet (Sulfamethoxazole/Trimethoprim) 1 Each Tablet 1 Tab PO BID [place] 5-325 Tablet (Acetaminophen/Hydrocodone Bitart) 1 Each Tablet 1-2 Tab PO Q4-6HRS Reported Dulcolax (Bisacodyl) 10 Mg Supp.rect 10 Mg RC PRN DAILY PRN Oxycontin (Oxycodone HCl) 10 Mg Tab.er.12h 20 Mg PO BID Eliquis (Apixaban) 5 Mg Tablet 5 Mg PO BID Ondansetron Hcl 4 Mg Tablet 1 Tab PO PRN Q6HRS PRN Oxycodone Hcl 15 Mg Tablet 15 Mg PO Q4HRS PRN Acetaminophen 500 Mg Tablet 1 Tab PO Q4HRS PRN Ativan (Lorazepam) 0.5 Mg Tablet 0.5 Mg PO TID Senokot (Sennosides) 8.6 Mg Tablet 2 Tab PO BID Lipitor (Atorvastatin Calcium) 10 Mg Tablet 1 Tab PO QHS Fleet Enema (Na Phos,M-B/Na Phos,Di-Ba) 133 Ml Enema 133 Ml RC DAILY PRN Milk Of Magnesia (Magnesium Hydroxide) 2,400 Mg/10 Ml Oral.susp 2,400 Mg PO Melatonin 3 Mg Tablet 1 Tab PO QHS Vitamin B-12 (Cyanocobalamin (Vitamin B-12)) 1,000 Mcg Tablet 1 Tab PO DAILY Hydroxyzine Hcl 25 Mg Tablet 25 Mg PO QID PRN Fosrenol (Lanthanum Carbonate) 1,000 Mg Tab.chew 1,000 Mg PO TIDAC Aspir 81 (Aspirin) 81 Mg Tablet.dr 1 Tab PO DAILY Polyethylene Glycol 3350 255 Gm Powder 17 Gm PO DAILY Protonix (Pantoprazole Sodium) 40 Mg Tablet.dr 1 Tab PO DAILY Loratadine 10 Mg Tablet 1 Tab PO DAILY Renvela (Sevelamer Carbonate) 800 Mg Tablet 1 Tab PO TID Lidocaine Hcl Viscous (Lidocaine Hcl) 20 Mg/1 Ml Solution 5 Ml PO BID Aranesp Syringe (Darbepoetin Jackson In Polysorbat) 60 Mcg/0.3 Ml Disp.syrin 60 Mcg SQ WEEKLY DURAGESIC 25mcg/hr (Fentanyl) 1 Each Patch.td72 1 Patch TP Q3DAYS Gabapentin 300 Mg Capsule 300 Mg PO TID Coreg (Carvedilol) 12.5 Mg Tablet 1 Tab PO BID Coreg (Carvedilol) 6.25 Mg Tablet 1 Tab PO BID Sensipar (Cinacalcet Hcl) 30 Mg Tablet 2 Tab PO DAILY Sertraline Hcl 25 Mg Tablet 25 Mg PO DAILY Vitals/I & O Vital Sign - Last 24 Hours 09/24/16 09/24/16 09/24/16 09/24/16 10:00 11:00 12:00 13:00 Pulse 83 88 91 Resp 12 10 10 B/P (MAP) 116/69 (85) 110/74 (86) 111/72 (85) Pulse Ox 90 94 O2 Delivery Room Air Room Air Nasal Cannula Room Air O2 Flow Rate 2.0 09/24/16 09/24/16 09/24/16 09/24/16 14:02 15:00 16:00 16:00 Temp 98.6 98.6 Pulse 90 98 86 Resp 11 19 22 B/P (MAP) 123/77 (92) 141/80 (100) 110/69 (83) Pulse Ox 95 95 98 O2 Delivery Room Air Room Air Nasal Cannula Room Air O2 Flow Rate 2.0 09/24/16 09/24/16 09/24/16 09/24/16 17:00 19:00 19:55 20:00 Temp 97.5 97.5 Pulse 90 84 Resp 17 12 B/P (MAP) 160/88 (112) 107/66 (80) Pulse Ox 90 96 99 O2 Delivery Room Air Room Air Room Air Room Air 09/24/16 09/24/16 09/25/16 09/25/16 22:15 23:00 01:49 02:26 Temp 98.5 98.5 Pulse 85 Resp 15 13 17 31 B/P (MAP) 156/86 (109) Pulse Ox 94 94 96 97 O2 Delivery Room Air Nasal Cannula Nasal Cannula Nasal Cannula O2 Flow Rate 2.0 2.0 2.0 09/25/16 09/25/16 09/25/16 09/25/16 03:00 07:00 08:00 09:00 Temp 98.3 98.0 98.3 98.0 Pulse 82 86 Resp 12 14 10 B/P (MAP) 153/85 (107) 158/82 (107) Pulse Ox 100 100 100 O2 Delivery Nasal Cannula Nasal Cannula Nasal Cannula Nasal Cannula O2 Flow Rate 2.0 2.0 2.0 2.0 Intake and Output 09/24/16 09/24/16 09/25/16 15:00 23:00 07:00 Intake Total 200 ml 500 ml 1172 ml Output Total 0 ml 0 ml 0 ml Balance 200 ml 500 ml 1172 ml Nutrition Consultation Dietary Evaluation: Recommendations by RD: Increase Calorie Intake, Protein supplementation, PPN/ TPN Comments: Pt on PPN @ 80 ml/hr - this provides 470 calories (25% estimated calorie needs) and 55 grams of protein (70% estimated protein Rec. speech evaluation to determine need for modified diet Expected Outcomes/Goals: meet 75% estimated nutrition needs Malnutrition Findings: Malnutrition related to morbid: No Weight Status: Appropriate SABINE LE MD Sep 25, 2016 10:01
--- NOTE | 2016-09-25 11:30 | PDOC ---
PULMONARY PROGRESS NOTES Subjective AWAKE Vitals Vital Signs Date Time Temp Pulse Resp B/P (MAP) Pulse Ox O2 Delivery O2 Flow Rate FiO2 09/25/16 09:00 10 100 Nasal Cannula 2.0 09/25/16 07:00 98.0 86 158/82 (107) 98.0 General: Alert Lungs: Clear Cardiovascular: S1 Abdomen: Soft Extremities: No Edema, Other (glans necrosis) Labs Laboratory Tests Test 09/23/16 13:00 09/24/16 04:40 09/24/16 11:20 09/25/16 05:48 Lactic Acid Level 1.3 mmol/L (0.4-2.0) White Blood Count 25.2 x10^3/uL (4.0-11.0) Red Blood Count 3.88 x10^6/uL (4.30-5.70) Hemoglobin 10.6 g/dL (13.0-17.5) Hematocrit 32.4 % (39.0-53.0) Mean Corpuscular Volume 84 fL (79-100) Mean Corpuscular Hemoglobin 27 pg (25-35) Mean Corpuscular Hemoglobin Concent 33 g/dL (31-37) Red Cell Distribution Width 15.6 % (11.5-14.5) Platelet Count 240 x10^3/uL (140-400) Neutrophils (%) (Auto) 87 % (31-73) Lymphocytes (%) (Auto) 3 % (24-48) Monocytes (%) (Auto) 9 % (0-9) Eosinophils (%) (Auto) 1 % (0-3) Basophils (%) (Auto) 0 % (0-3) Neutrophils # (Auto) 22.1 x10^3uL (1.8-7.7) Lymphocytes # (Auto) 0.9 x10^3/uL (1.0-4.8) Monocytes # (Auto) 2.2 x10^3/uL (0.0-1.1) Eosinophils # (Auto) 0.1 x10^3/uL (0.0-0.7) Basophils # (Auto) 0.0 x10^3/uL (0.0-0.2) Sodium Level 135 mmol/L (136-145) 133 mmol/L (136-145) Potassium Level 3.8 mmol/L (3.5-5.1) 4.3 mmol/L (3.5-5.1) Chloride Level 94 mmol/L (98-107) 93 mmol/L (98-107) Carbon Dioxide Level 30 mmol/L (21-32) 29 mmol/L (21-32) Anion Gap 11 (6-14) 11 (6-14) Blood Urea Nitrogen 34 mg/dL (8-26) 54 mg/dL (8-26) Creatinine 3.3 mg/dL (0.7-1.3) 4.3 mg/dL (0.7-1.3) Estimated GFR (Cockcroft-Gault) 23.2 17.1 Glucose Level 157 mg/dL (70-99) 179 mg/dL (70-99) Calcium Level 10.3 mg/dL (8.5-10.1) 10.2 mg/dL (8.5-10.1) Phosphorus Level 4.5 mg/dL (2.6-4.7) 4.7 mg/dL (2.6-4.7) Magnesium Level 1.9 mg/dL (1.8-2.4) 2.3 mg/dL (1.8-2.4) Albumin 1.7 g/dL (3.4-5.0) 1.5 g/dL (3.4-5.0) Glucose (Fingerstick) 156 mg/dL (70-99) Test 09/25/16 06:50 White Blood Count 20.6 x10^3/uL (4.0-11.0) Red Blood Count 3.97 x10^6/uL (4.30-5.70) Hemoglobin 10.7 g/dL (13.0-17.5) Hematocrit 33.7 % (39.0-53.0) Mean Corpuscular Volume 85 fL (79-100) Mean Corpuscular Hemoglobin 27 pg (25-35) Mean Corpuscular Hemoglobin Concent 32 g/dL (31-37) Red Cell Distribution Width 15.6 % (11.5-14.5) Platelet Count 235 x10^3/uL (140-400) Neutrophils (%) (Auto) 82 % (31-73) Lymphocytes (%) (Auto) 6 % (24-48) Monocytes (%) (Auto) 11 % (0-9) Eosinophils (%) (Auto) 1 % (0-3) Basophils (%) (Auto) 0 % (0-3) Neutrophils # (Auto) 16.8 x10^3uL (1.8-7.7) Lymphocytes # (Auto) 1.3 x10^3/uL (1.0-4.8) Monocytes # (Auto) 2.3 x10^3/uL (0.0-1.1) Eosinophils # (Auto) 0.1 x10^3/uL (0.0-0.7) Basophils # (Auto) 0.1 x10^3/uL (0.0-0.2) Erythrocyte Sedimentation Rate 117 (0-15) Laboratory Tests Test 09/25/16 05:48 09/25/16 06:50 Sodium Level 133 mmol/L (136-145) Potassium Level 4.3 mmol/L (3.5-5.1) Chloride Level 93 mmol/L (98-107) Carbon Dioxide Level 29 mmol/L (21-32) Anion Gap 11 (6-14) Blood Urea Nitrogen 54 mg/dL (8-26) Creatinine 4.3 mg/dL (0.7-1.3) Estimated GFR (Cockcroft-Gault) 17.1 Glucose Level 179 mg/dL (70-99) Calcium Level 10.2 mg/dL (8.5-10.1) Phosphorus Level 4.7 mg/dL (2.6-4.7) Magnesium Level 2.3 mg/dL (1.8-2.4) Albumin 1.5 g/dL (3.4-5.0) White Blood Count 20.6 x10^3/uL (4.0-11.0) Red Blood Count 3.97 x10^6/uL (4.30-5.70) Hemoglobin 10.7 g/dL (13.0-17.5) Hematocrit 33.7 % (39.0-53.0) Mean Corpuscular Volume 85 fL (79-100) Mean Corpuscular Hemoglobin 27 pg (25-35) Mean Corpuscular Hemoglobin Concent 32 g/dL (31-37) Red Cell Distribution Width 15.6 % (11.5-14.5) Platelet Count 235 x10^3/uL (140-400) Neutrophils (%) (Auto) 82 % (31-73) Lymphocytes (%) (Auto) 6 % (24-48) Monocytes (%) (Auto) 11 % (0-9) Eosinophils (%) (Auto) 1 % (0-3) Basophils (%) (Auto) 0 % (0-3) Neutrophils # (Auto) 16.8 x10^3uL (1.8-7.7) Lymphocytes # (Auto) 1.3 x10^3/uL (1.0-4.8) Monocytes # (Auto) 2.3 x10^3/uL (0.0-1.1) Eosinophils # (Auto) 0.1 x10^3/uL (0.0-0.7) Basophils # (Auto) 0.1 x10^3/uL (0.0-0.2) Erythrocyte Sedimentation Rate 117 (0-15) Medications Active Scripts Medications Dose Route/Sig Max Daily Dose Days Date Category Dulcolax (Bisacodyl) 10 Mg Supp.rect 10 Mg RC PRN DAILY PRN 09/22/16 Reported Oxycontin (Oxycodone HCl) 10 Mg Tab.er.12h 20 Mg PO BID 09/22/16 Reported Eliquis (Apixaban) 5 Mg Tablet 5 Mg PO BID 09/22/16 Reported Ondansetron Hcl 4 Mg Tablet 1 Tab PO PRN Q6HRS PRN 09/22/16 Reported Oxycodone Hcl 15 Mg Tablet 15 Mg PO Q4HRS PRN 09/22/16 Reported Acetaminophen 500 Mg Tablet 1 Tab PO Q4HRS PRN 09/22/16 Reported Ativan (Lorazepam) 0.5 Mg Tablet 0.5 Mg PO TID 09/22/16 Reported Senokot (Sennosides) 8.6 Mg Tablet 2 Tab PO BID 09/22/16 Reported Lipitor (Atorvastatin Calcium) 10 Mg Tablet 1 Tab PO QHS 09/22/16 Reported Fleet Enema (Na Phos,M-B/Na Phos,Di-Ba) 133 Ml Enema 133 Ml RC DAILY PRN 09/22/16 Reported Milk Of Magnesia (Magnesium Hydroxide) 2,400 Mg/10 Ml Oral.susp 2,400 Mg PO 09/22/16 Reported Melatonin 3 Mg Tablet 1 Tab PO QHS 09/22/16 Reported Vitamin B-12 (Cyanocobalamin (Vitamin B-12)) 1,000 Mcg Tablet 1 Tab PO DAILY 09/22/16 Reported Hydroxyzine Hcl 25 Mg Tablet 25 Mg PO QID PRN 09/22/16 Reported Fosrenol (Lanthanum Carbonate) 1,000 Mg Tab.chew 1,000 Mg PO TIDAC 09/22/16 Reported Aspir 81 (Aspirin) 81 Mg Tablet.dr 1 Tab PO DAILY 09/22/16 Reported Polyethylene Glycol 3350 255 Gm Powder 17 Gm PO DAILY 09/22/16 Reported Protonix (Pantoprazole Sodium) 40 Mg Tablet.dr 1 Tab PO DAILY 09/22/16 Reported Loratadine 10 Mg Tablet 1 Tab PO DAILY 09/22/16 Reported Renvela (Sevelamer Carbonate) 800 Mg Tablet 1 Tab PO TID 09/22/16 Reported Lidocaine Hcl Viscous (Lidocaine Hcl) 20 Mg/1 Ml Solution 5 Ml PO BID 09/22/16 Reported Aranesp Syringe (Darbepoetin [place] In Polysorbat) 60 Mcg/0.3 Ml Disp.syrin 60 Mcg SQ WEEKLY 09/22/16 Reported DURAGESIC 25mcg/hr (Fentanyl) 1 Each Patch.td72 1 Patch TP Q3DAYS 09/22/16 Reported Gabapentin 300 Mg Capsule 300 Mg PO TID 09/22/16 Reported Coreg (Carvedilol) 12.5 Mg Tablet 1 Tab PO BID 09/22/16 Reported Coreg (Carvedilol) 6.25 Mg Tablet 1 Tab PO BID 09/22/16 Reported Sensipar (Cinacalcet Hcl) 30 Mg Tablet 2 Tab PO DAILY 09/22/16 Reported Sertraline Hcl 25 Mg Tablet 25 Mg PO DAILY 09/22/16 Reported Bactrim Ds Tablet (Sulfamethoxazole/Trimethoprim) 1 Each Tablet 1 Tab PO BID 04/25/16 Rx [place] 5-325 Tablet (Acetaminophen/Hydrocodone Bitart) 1 Each Tablet 1-2 Tab PO Q4-6HRS 04/25/16 Rx Impression . 1. Sepsis syndrome. The etiology is related to necrotic glans penis. 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 CTA of the abdomen not so impressive 2. Marked leukocytosis, secondary to sepsis 3. History of tobacco use in the past. 4. End-stage renal disease, on hemodialysis. 5. Hypotension/shock, secondary to a combination of hypovolemia and early sepsis. Blood pressure is now more stabilized and he did not require pressors. Plan . 1. From a pulmonary standpoint, he is doing reasonably well on 2 liters nasal cannula. 2. Continue broad-spectrum antibiotics. 3. Follow white cell count 4. Follow Infectious Disease recommendations. 6. Follow Vascular Surgery recommendations. 7. Discussed with RN. pt is DNR now 8. ROLY BYERS MD Sep 25, 2016 11:30
[2016-09-25] MEDS: VANCOMYCIN PER PHARMACY MC PRN (11:46)
[2016-09-25 11:57] VITALS: BP 110/69
--- NOTE | 2016-09-25 12:10 | PDOC ---
Infectious Disease Note Subjective Subjective Periods of agitation and confusion No fever last 24 hours. Denies pain, N/V PPN Supplemental O2 3LNC Soft stools Vital Sign Vital Signs Vital Signs Date Time Temp Pulse Resp B/P (MAP) Pulse Ox O2 Delivery O2 Flow Rate FiO2 09/25/16 11:57 85 10 110/69 (83) 100 Nasal Cannula 2.0 09/25/16 07:00 98.0 98.0 Physical Exam PHYSICAL EXAM GENERAL: Resting quietly HEENT: Oral cavity dry NECK: Supple LUNGS: Clear HEART: S1S2, regular. AICD (left lateral chest) ABD: ND, BS present, soft, NT EXT: No edema, no cyanosis. RUE AV fistula. 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 glans penis some necrosis-tender LIJ. (09/22). clean Labs Lab Laboratory Tests Test 09/25/16 05:48 09/25/16 06:50 Sodium Level 133 mmol/L (136-145) Potassium Level 4.3 mmol/L (3.5-5.1) Chloride Level 93 mmol/L (98-107) Carbon Dioxide Level 29 mmol/L (21-32) Anion Gap 11 (6-14) Blood Urea Nitrogen 54 mg/dL (8-26) Creatinine 4.3 mg/dL (0.7-1.3) Estimated GFR (Cockcroft-Gault) 17.1 Glucose Level 179 mg/dL (70-99) Calcium Level 10.2 mg/dL (8.5-10.1) Phosphorus Level 4.7 mg/dL (2.6-4.7) Magnesium Level 2.3 mg/dL (1.8-2.4) Albumin 1.5 g/dL (3.4-5.0) White Blood Count 20.6 x10^3/uL (4.0-11.0) Red Blood Count 3.97 x10^6/uL (4.30-5.70) Hemoglobin 10.7 g/dL (13.0-17.5) Hematocrit 33.7 % (39.0-53.0) Mean Corpuscular Volume 85 fL (79-100) Mean Corpuscular Hemoglobin 27 pg (25-35) Mean Corpuscular Hemoglobin Concent 32 g/dL (31-37) Red Cell Distribution Width 15.6 % (11.5-14.5) Platelet Count 235 x10^3/uL (140-400) Neutrophils (%) (Auto) 82 % (31-73) Lymphocytes (%) (Auto) 6 % (24-48) Monocytes (%) (Auto) 11 % (0-9) Eosinophils (%) (Auto) 1 % (0-3) Basophils (%) (Auto) 0 % (0-3) Neutrophils # (Auto) 16.8 x10^3uL (1.8-7.7) Lymphocytes # (Auto) 1.3 x10^3/uL (1.0-4.8) Monocytes # (Auto) 2.3 x10^3/uL (0.0-1.1) Eosinophils # (Auto) 0.1 x10^3/uL (0.0-0.7) Basophils # (Auto) 0.1 x10^3/uL (0.0-0.2) Erythrocyte Sedimentation Rate 117 (0-15) Micro BLOOD CULT RESULT 1 Preliminary Serratia marcescens Antibiotic RSLT#1 Amoxicillin/Clavulanic Acid R Cefazolin R Cefepime S Ceftriaxone S Cefuroxime R Cephalothin R Ciprofloxacin S Ertapenem S Gentamicin S Imipenem S Levofloxacin S Nitrofurantoin R Piperacillin S Tetracycline S Tobramycin S Trimethoprim/Sulfa S Objective Assessment Fever. better Leukocytosis, slowly improving Sepsis, POA. Serratia Encephalopathy. Necrosis of the glans. Chronic kidney disease on hemodialysis. Peripheral arterial disease. Non-STEMI. Plan Plan of Care Vanc, Zosyn, Micafungin Tobra time one dose, 09/22. Vanc trough 19.9 Ammonia level <10 F/u labs and cultures Sputum culture Critically ill Attending Co-Sign The patient was seen and interviewed as well as examined at the bedside. The chart was reviewed. The case was discussed. Agree with the plan of care. SANDRA LUNDY APRN Sep 25, 2016 12:10 EMMA ESTEBAN MD Sep 25, 2016 14:13
--- NOTE | 2016-09-25 14:12 | PDOC ---
Provider Note Provider Note RENAL F/U : SHANKAR DOS : 09/24/16 S: No new issues. O : Doing OK VSS Afebrile. Neck ; Supple Lungs : Non labored. CVS : RRR Abd: Benign appearing. No new edema. A/P: ESRD SEPSIS ( gram negative ). HTN w CKD Supportive care. HD per schedule. CPM. Finesse Chaparro M.D. FINESSE CHAPARRO MD Sep 25, 2016 14:12
[2016-09-25 15:00] VITALS: BP 150/82
[2016-09-25] MEDS: AMINO AC 3%/ELECTROLYTE/GLYCER 1,000 ML IV SCH (15:08)
[2016-09-25 19:00] VITALS: BP 146/89
[2016-09-25] MEDS: MICAFUNGIN 100 MG in IV DEXTROSE 5% 100 ML IV SCH (21:17)
[2016-09-25 23:00] VITALS: BP 140/98
[2016-09-26] MEDS: AMINO AC 3%/ELECTROLYTE/GLYCER 1,000 ML IV SCH ×2 (01:27→11:53)
[2016-09-26 03:05] VITALS: BP 142/89
[2016-09-26] MEDS: PIPERACILLIN/TAZOBACTAM 2.25 GM in IV NORMAL SALINE 50ML 50 ML IV SCH (06:14)
[2016-09-26] MEDS: HEPARIN PF for SUB-Q USE 5,000 UNIT/0.5 ML VIAL. SQ SCH ×2 (06:19→12:44)
[2016-09-26 06:45] LABS: ALBUMIN 1.7 g/dL (3.4-5.0); CALCIUM 9.7 mg/dL (8.5-10.1); CREATININE 5.1 mg/dL (0.7-1.3); POTASSIUM 4.9 mmol/L (3.5-5.1)
[2016-09-26 07:00] VITALS: BP 162/100
[2016-09-26] MEDS ORDERED: IV NORMAL SALINE 1000ML BAG 1,000 ML IV PRN ×2 (07:29)
[2016-09-26] MEDS ORDERED: DIALYSIS PATIENT. MC PRN (07:30)
[2016-09-26] MEDS ORDERED: diphenhydrAMINE 50 MG/ML VIAL IV PRN ×2 (07:30)
--- NOTE | 2016-09-26 09:22 | PDOC ---
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 better Leukocytosis, slowly improving Sepsis, POA. Serratia Encephalopathy. Necrosis of the glans. Chronic kidney disease on hemodialysis. Peripheral arterial disease. Non-STEMI. Plan Plan of Care vanc and meropenem, d/c sharon and zosyn Ammonia level <10 F/u labs and cultures Sputum culture overall prognosis poor EMMA ESTEBAN MD Sep 26, 2016 09:22
[2016-09-26] MEDS ORDERED: MEROPENEM 1 GM in IV NORMAL SALINE 100ML 100 ML IV SCH (10:00)
--- NOTE | 2016-09-26 10:08 | PDOC ---
PULMONARY PROGRESS NOTES Subjective AWAKE/ NO SOA Vitals Vital Signs Date Time Temp Pulse Resp B/P (MAP) Pulse Ox O2 Delivery O2 Flow Rate FiO2 09/26/16 08:00 Nasal Cannula 2.0 09/26/16 07:00 97.4 91 18 162/100 (120) 93 97.4 General: Alert, No acute distress Lungs: Clear Cardiovascular: S1 Abdomen: Soft Extremities: No Edema, Other (glans necrosis) Labs Laboratory Tests Test 09/24/16 11:20 09/25/16 05:48 09/25/16 06:50 09/26/16 06:15 Glucose (Fingerstick) 156 mg/dL (70-99) Sodium Level 133 mmol/L (136-145) 132 mmol/L (136-145) Potassium Level 4.3 mmol/L (3.5-5.1) 4.9 mmol/L (3.5-5.1) Chloride Level 93 mmol/L (98-107) 92 mmol/L (98-107) Carbon Dioxide Level 29 mmol/L (21-32) 25 mmol/L (21-32) Anion Gap 11 (6-14) 15 (6-14) Blood Urea Nitrogen 54 mg/dL (8-26) 70 mg/dL (8-26) Creatinine 4.3 mg/dL (0.7-1.3) 5.1 mg/dL (0.7-1.3) Estimated GFR (Cockcroft-Gault) 17.1 14.0 Glucose Level 179 mg/dL (70-99) 174 mg/dL (70-99) Calcium Level 10.2 mg/dL (8.5-10.1) 9.7 mg/dL (8.5-10.1) Phosphorus Level 4.7 mg/dL (2.6-4.7) 5.0 mg/dL (2.6-4.7) Magnesium Level 2.3 mg/dL (1.8-2.4) 2.5 mg/dL (1.8-2.4) Albumin 1.5 g/dL (3.4-5.0) 1.7 g/dL (3.4-5.0) White Blood Count 20.6 x10^3/uL (4.0-11.0) Red Blood Count 3.97 x10^6/uL (4.30-5.70) Hemoglobin 10.7 g/dL (13.0-17.5) Hematocrit 33.7 % (39.0-53.0) Mean Corpuscular Volume 85 fL (79-100) Mean Corpuscular Hemoglobin 27 pg (25-35) Mean Corpuscular Hemoglobin Concent 32 g/dL (31-37) Red Cell Distribution Width 15.6 % (11.5-14.5) Platelet Count 235 x10^3/uL (140-400) Neutrophils (%) (Auto) 82 % (31-73) Lymphocytes (%) (Auto) 6 % (24-48) Monocytes (%) (Auto) 11 % (0-9) Eosinophils (%) (Auto) 1 % (0-3) Basophils (%) (Auto) 0 % (0-3) Neutrophils # (Auto) 16.8 x10^3uL (1.8-7.7) Lymphocytes # (Auto) 1.3 x10^3/uL (1.0-4.8) Monocytes # (Auto) 2.3 x10^3/uL (0.0-1.1) Eosinophils # (Auto) 0.1 x10^3/uL (0.0-0.7) Basophils # (Auto) 0.1 x10^3/uL (0.0-0.2) Erythrocyte Sedimentation Rate 117 (0-15) Laboratory Tests Test 09/26/16 06:15 Sodium Level 132 mmol/L (136-145) Potassium Level 4.9 mmol/L (3.5-5.1) Chloride Level 92 mmol/L (98-107) Carbon Dioxide Level 25 mmol/L (21-32) Anion Gap 15 (6-14) Blood Urea Nitrogen 70 mg/dL (8-26) Creatinine 5.1 mg/dL (0.7-1.3) Estimated GFR (Cockcroft-Gault) 14.0 Glucose Level 174 mg/dL (70-99) Calcium Level 9.7 mg/dL (8.5-10.1) Phosphorus Level 5.0 mg/dL (2.6-4.7) Magnesium Level 2.5 mg/dL (1.8-2.4) Albumin 1.7 g/dL (3.4-5.0) Medications Active Scripts Medications Dose Route/Sig Max Daily Dose Days Date Category Dulcolax (Bisacodyl) 10 Mg Supp.rect 10 Mg RC PRN DAILY PRN 09/22/16 Reported Oxycontin (Oxycodone HCl) 10 Mg Tab.er.12h 20 Mg PO BID 09/22/16 Reported Eliquis (Apixaban) 5 Mg Tablet 5 Mg PO BID 09/22/16 Reported Ondansetron Hcl 4 Mg Tablet 1 Tab PO PRN Q6HRS PRN 09/22/16 Reported Oxycodone Hcl 15 Mg Tablet 15 Mg PO Q4HRS PRN 09/22/16 Reported Acetaminophen 500 Mg Tablet 1 Tab PO Q4HRS PRN 09/22/16 Reported Ativan (Lorazepam) 0.5 Mg Tablet 0.5 Mg PO TID 09/22/16 Reported Senokot (Sennosides) 8.6 Mg Tablet 2 Tab PO BID 09/22/16 Reported Lipitor (Atorvastatin Calcium) 10 Mg Tablet 1 Tab PO QHS 09/22/16 Reported Fleet Enema (Na Phos,M-B/Na Phos,Di-Ba) 133 Ml Enema 133 Ml RC DAILY PRN 09/22/16 Reported Milk Of Magnesia (Magnesium Hydroxide) 2,400 Mg/10 Ml Oral.susp 2,400 Mg PO 09/22/16 Reported Melatonin 3 Mg Tablet 1 Tab PO QHS 09/22/16 Reported Vitamin B-12 (Cyanocobalamin (Vitamin B-12)) 1,000 Mcg Tablet 1 Tab PO DAILY 09/22/16 Reported Hydroxyzine Hcl 25 Mg Tablet 25 Mg PO QID PRN 09/22/16 Reported Fosrenol (Lanthanum Carbonate) 1,000 Mg Tab.chew 1,000 Mg PO TIDAC 09/22/16 Reported Aspir 81 (Aspirin) 81 Mg Tablet.dr 1 Tab PO DAILY 09/22/16 Reported Polyethylene Glycol 3350 255 Gm Powder 17 Gm PO DAILY 09/22/16 Reported Protonix (Pantoprazole Sodium) 40 Mg Tablet.dr 1 Tab PO DAILY 09/22/16 Reported Loratadine 10 Mg Tablet 1 Tab PO DAILY 09/22/16 Reported Renvela (Sevelamer Carbonate) 800 Mg Tablet 1 Tab PO TID 09/22/16 Reported Lidocaine Hcl Viscous (Lidocaine Hcl) 20 Mg/1 Ml Solution 5 Ml PO BID 09/22/16 Reported Aranesp Syringe (Darbepoetin Jackson In Polysorbat) 60 Mcg/0.3 Ml Disp.syrin 60 Mcg SQ WEEKLY 09/22/16 Reported DURAGESIC 25mcg/hr (Fentanyl) 1 Each Patch.td72 1 Patch TP Q3DAYS 09/22/16 Reported Gabapentin 300 Mg Capsule 300 Mg PO TID 09/22/16 Reported Coreg (Carvedilol) 12.5 Mg Tablet 1 Tab PO BID 09/22/16 Reported Coreg (Carvedilol) 6.25 Mg Tablet 1 Tab PO BID 09/22/16 Reported Sensipar (Cinacalcet Hcl) 30 Mg Tablet 2 Tab PO DAILY 09/22/16 Reported Sertraline Hcl 25 Mg Tablet 25 Mg PO DAILY 09/22/16 Reported Bactrim Ds Tablet (Sulfamethoxazole/Trimethoprim) 1 Each Tablet 1 Tab PO BID 04/25/16 Rx [place] 5-325 Tablet (Acetaminophen/Hydrocodone Bitart) 1 Each Tablet 1-2 Tab PO Q4-6HRS 04/25/16 Rx Impression . 1. Sepsis syndrome. The etiology is related to necrotic glans penis. 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 CTA of the abdomen not so impressive 2. Marked leukocytosis, secondary to sepsis (serratia) 3. History of tobacco use in the past. 4. End-stage renal disease, on hemodialysis. 5. Hypotension/shock, secondary to a combination of hypovolemia and early sepsis. resolved 6. Serratia bacteremia Plan . 1. From a pulmonary standpoint, he is doing reasonably well 2. Continue broad-spectrum antibiotics. 3. Follow white cell count 4. Follow Infectious Disease recommendations. 6. Follow Vascular Surgery recommendations. 7. pt is DNR 8. HD per renal ROLY BOWIE MD Sep 26, 2016 10:08
--- NOTE | 2016-09-26 10:26 | PDOC ---
PROGRESS NOTES Assessment Problems Medical Problems: (1) Acute electrocardiogram changes Status: Acute (2) Open wound of penis Status: Acute (3) Sepsis Status: Acute Metabolic encephalopathy with sepsis syndrome, Improved Plan No need for additional neurological studies at this point Treatment of medical conditions. Palliative approach Subjective No complaints Objective Vital Signs Date Time Temp Pulse Resp B/P (MAP) Pulse Ox O2 Delivery O2 Flow Rate FiO2 09/26/16 08:00 Nasal Cannula 2.0 09/26/16 07:00 97.4 91 18 162/100 (120) 93 97.4 Intake and Output 09/26/16 07:00 Intake Total 1120 ml Output Total 0 ml Balance 1120 ml Intake Oral 120 ml IV Total 950 ml Other 50 ml Output Urine Total 0 ml # Bowel Movements 2 PHYSICAL EXAM Alert. Nurse feeding some breakfast. Oriented to person. PERRL. EOMI. CN: no focal findings. Muscle tone: normal. Muscle strength: Moves all extremities DTR: 0+ Plantar reflex: flexor Gait: not examined in bed. Sensory exam: no abnormal findings. No cerebellar signs elicited. Review of Relevant I have reviewed the following items parvin (where applicable) has been applied. Labs Laboratory Tests Test 09/24/16 11:20 09/25/16 05:48 09/25/16 06:50 09/26/16 06:15 Glucose (Fingerstick) 156 mg/dL (70-99) Sodium Level 133 mmol/L (136-145) 132 mmol/L (136-145) Potassium Level 4.3 mmol/L (3.5-5.1) 4.9 mmol/L (3.5-5.1) Chloride Level 93 mmol/L (98-107) 92 mmol/L (98-107) Carbon Dioxide Level 29 mmol/L (21-32) 25 mmol/L (21-32) Anion Gap 11 (6-14) 15 (6-14) Blood Urea Nitrogen 54 mg/dL (8-26) 70 mg/dL (8-26) Creatinine 4.3 mg/dL (0.7-1.3) 5.1 mg/dL (0.7-1.3) Estimated GFR (Cockcroft-Gault) 17.1 14.0 Glucose Level 179 mg/dL (70-99) 174 mg/dL (70-99) Calcium Level 10.2 mg/dL (8.5-10.1) 9.7 mg/dL (8.5-10.1) Phosphorus Level 4.7 mg/dL (2.6-4.7) 5.0 mg/dL (2.6-4.7) Magnesium Level 2.3 mg/dL (1.8-2.4) 2.5 mg/dL (1.8-2.4) Albumin 1.5 g/dL (3.4-5.0) 1.7 g/dL (3.4-5.0) White Blood Count 20.6 x10^3/uL (4.0-11.0) Red Blood Count 3.97 x10^6/uL (4.30-5.70) Hemoglobin 10.7 g/dL (13.0-17.5) Hematocrit 33.7 % (39.0-53.0) Mean Corpuscular Volume 85 fL (79-100) Mean Corpuscular Hemoglobin 27 pg (25-35) Mean Corpuscular Hemoglobin Concent 32 g/dL (31-37) Red Cell Distribution Width 15.6 % (11.5-14.5) Platelet Count 235 x10^3/uL (140-400) Neutrophils (%) (Auto) 82 % (31-73) Lymphocytes (%) (Auto) 6 % (24-48) Monocytes (%) (Auto) 11 % (0-9) Eosinophils (%) (Auto) 1 % (0-3) Basophils (%) (Auto) 0 % (0-3) Neutrophils # (Auto) 16.8 x10^3uL (1.8-7.7) Lymphocytes # (Auto) 1.3 x10^3/uL (1.0-4.8) Monocytes # (Auto) 2.3 x10^3/uL (0.0-1.1) Eosinophils # (Auto) 0.1 x10^3/uL (0.0-0.7) Basophils # (Auto) 0.1 x10^3/uL (0.0-0.2) Erythrocyte Sedimentation Rate 117 (0-15) Laboratory Tests Test 09/26/16 06:15 Sodium Level 132 mmol/L (136-145) Potassium Level 4.9 mmol/L (3.5-5.1) Chloride Level 92 mmol/L (98-107) Carbon Dioxide Level 25 mmol/L (21-32) Anion Gap 15 (6-14) Blood Urea Nitrogen 70 mg/dL (8-26) Creatinine 5.1 mg/dL (0.7-1.3) Estimated GFR (Cockcroft-Gault) 14.0 Glucose Level 174 mg/dL (70-99) Calcium Level 9.7 mg/dL (8.5-10.1) Phosphorus Level 5.0 mg/dL (2.6-4.7) Magnesium Level 2.5 mg/dL (1.8-2.4) Albumin 1.7 g/dL (3.4-5.0) Microbiology 09/21/16 Blood Culture - Final, Complete 09/21/16 Blood Culture Result 1 (TEJAL) - Final, Complete 09/21/16 Antimicrobic Susceptibility - Final, Complete 09/21/16 Gram Stain - Final, Complete Medications Current Medications Ondansetron HCl (Zofran) 4 mg PRN Q8HRS PRN IV NAUSEA/VOMITING; Start 09/21/16 at 15:00; Stop 09/21/16 at 16:55; Status DC Morphine Sulfate 2 mg PRN Q2HR PRN IV PAIN; Start 09/21/16 at 15:00; Stop at 14:59; Status DC Ciprofloxacin Lactate 200 ml @ 200 mls/hr Q24H IV Last administered on 16:02; Start 09/21/16 at 15:00; Stop 09/22/16 at 16:44; Status DC Magnesium Sulfate/ Dextrose 50 ml @ 25 mls/hr PRN DAILY PRN IV for Mag < 1.7 on am labs; Start 09/21/16 at 16:00 Sodium Chloride 500 ml @ 0 mls/hr QID PRN IV map < 65 Last administered on 04:05; Start 09/21/16 at 16:15 Ondansetron HCl (Zofran) 4 mg PRN Q6HRS PRN IV NAUSEA/VOMITING; Start 09/21/16 at 16:52; Stop 09/22/16 at 16:51; Status DC Acetaminophen (Tylenol) 650 mg PRN Q6HRS PRN PO fever; Start 09/21/16 at 17:00 Acetaminophen/ Hydrocodone Bitart (Lortab 5/325) 1 tab PRN TID PRN PO pain; Start 09/21/16 at 17:00 Heparin Sodium (Porcine) (Heparin Sq) 5,000 unit Q8HRS SQ Last administered on 09/26/16 06:19; Start 09/21/16 at 22:00 Norepinephrine Bitartrate 250 ml @ 0 mls/hr CONT PRN IV SEE I/O RECORD; Start 09/21/16 at 17:45 Piperacillin Sod/ Tazobactam Sod 2.25 gm/Sodium Chloride 50 ml @ 100 mls/hr Q8HRS IV Last administered on 09/26/16 06:14; Start 09/21/16 at 18:00; Stop 09/26/16 at 09:23; Status DC Vancomycin HCl (Vanco Per Pharmacy) 1 each PRN DAILY PRN MC SEE COMMENTS Last administered on 09/25/16 11:46; Start 09/21/16 at 17:45 Micafungin Sodium 100 mg/Dextrose 100 ml @ 100 mls/hr Q24H IV Last administered on 09/25/16 21:17; Start 09/21/16 at 21:00; Stop 09/26/16 at 09:23; Status DC Vancomycin HCl 1.5 gm/Sodium Chloride 500 ml @ 250 mls/hr 1X ONCE IV Last administered on 09/21/16 20:18; Start 09/21/16 at 19:00; Stop 09/21/16 at 20:59 ; Status DC Vancomycin HCl 1 each 1X ONCE MC Last administered on 09/23/16 06:00; Start at 06:00; Stop 09/23/16 at 06:01; Status DC Acetaminophen (Acetaminophen Supp) 650 mg PRN Q6HRS PRN MA MILD PAIN / TEMP; Start 09/22/16 at 00:30 Labetalol HCl (Normodyne) 10 mg PRN Q4HRS PRN IVP HYPERTENSION, SEE COMMENTS; Start 09/22/16 at 00:30 Amino Acids/ Glycerin/ Electrolytes 1,000 ml @ 80 mls/hr [id number] IV Last administered on 09/26/16 01:27; Start 09/22/16 at 08:45 Lidocaine/Sodium Bicarbonate (Buffered Lidocaine 1%) 3 ml 1X ONCE IJ Last administered on 09/22/16 09:29; Start 09/22/16 at 08:45; Stop 09/22/16 at 08:48; Status DC Heparin Sodium/ Sodium Chloride 60 unit 1X ONCE IV Last administered on 09:30; Start 09/22/16 at 08:45; Stop 09/22/16 at 08:48; Status DC Iohexol (Omnipaque 350 Mg/ml) 95 ml 1X ONCE IV Last administered on 09/22/16 11:05; Start 09/22/16 at 11:00; Stop 09/22/16 at 11:01; Status DC Info (Do NOT chart on this entry -- for MONITORING) 1 each PRN DAILY PRN MC SEE COMMENTS; Start 09/22/16 at 11:00; Stop 09/24/16 at 10:59; Status DC Sodium Chloride 500 ml @ 500 mls/hr 1X ONCE IV Last administered on 09/22/16 12:00; Start 09/22/16 at 12:00; Stop 09/22/16 at 15:55; Status DC Tobramycin Sulfate (Nebcin Per Pharmacy) 1 each PRN DAILY PRN MC SEE COMMENTS Last administered on 09/22/16 17:08; Start 09/22/16 at 16:45; Stop 09/22/16 at 17: 11; Status DC Tobramycin Sulfate 130 mg/ Sodium Chloride 53.25 ml @ 106.5 mls/ hr ONCE ONCE IV Last administered on 09/22/16 17:58; Start 09/22/16 at 17:00; Stop 09/22/16 at 17:29; Status DC Tobramycin Sulfate (Nebcin Per Pharmacy) 1 each 1X ONCE MC ; Start 09/22/16 at 17:15; Stop 09/22/16 at 17:16; Status DC Vancomycin HCl 500 mg/Sodium Chloride 100 ml @ 100 mls/hr QMWF IV Last administered on 09/23/16 19:58; Start 09/23/16 at 16:00 Darbepoetin Jackson (Aranesp) 60 mcg WEEKLYHS SQ Last administered on 09/23/16 20: 56; Start 09/23/16 at 21:00 Sodium Chloride 1,000 ml @ 1,000 mls/hr Q1H PRN IV hypotension; Start 09/23/16 at 14:30; Stop 09/23/16 at 19:00; Status DC Albumin Human 200 ml @ 200 mls/hr 1X PRN PRN IV Hypotension; Start 09/23/16 at 14:15; Stop 09/23/16 at 21:00; Status DC Diphenhydramine HCl (Benadryl) 25 mg 1X PRN PRN IV ITCHING; Start 09/23/16 at 14 :15; Stop 09/23/16 at 21:00; Status DC Diphenhydramine HCl (Benadryl) 25 mg 1X PRN PRN IV ITCHING; Start 09/23/16 at 14 :15; Stop 09/23/16 at 21:00; Status DC Sodium Chloride 1,000 ml @ 400 mls/hr Q2H30M PRN IV PATENCY; Start 09/23/16 at 14:15; Stop 09/23/16 at 21:00; Status DC Info (PHARMACY MONITORING -- do not chart) 1 each PRN DAILY PRN MC SEE COMMENTS ; Start 09/23/16 at 14:15 Morphine Sulfate 1 mg PRN Q2HR PRN IV PAIN Last administered on 09/25/16t 09:00 ; Start 09/24/16 at 00:45 Sodium Chloride 1,000 ml @ 1,000 mls/hr Q1H PRN IV hypotension; Start 09/26/16 at 07:29; Stop 09/26/16 at 13:28 Diphenhydramine HCl (Benadryl) 25 mg 1X PRN PRN IV ITCHING Last administered on 09/26/16 09:41; Start 09/26/16 at 07:30; Stop 09/27/16 at 07:29 Diphenhydramine HCl (Benadryl) 25 mg 1X PRN PRN IV ITCHING; Start 09/26/16 at 07 :30; Stop 09/27/16 at 07:29 Sodium Chloride 1,000 ml @ 400 mls/hr Q2H30M PRN IV PATENCY; Start 09/26/16 at 07:29; Stop 09/26/16 at 19:28 Info (PHARMACY MONITORING -- do not chart) 1 each PRN DAILY PRN MC SEE COMMENTS ; Start 09/26/16 at 07:30; Status UNV Meropenem 1 gm/ Sodium Chloride 100 ml @ 200 mls/hr DAILY IV ; Start 09/26/16 at 10:00 Active Scripts Active Bactrim Ds Tablet (Sulfamethoxazole/Trimethoprim) 1 Each Tablet 1 Tab PO BID [place] 5-325 Tablet (Acetaminophen/Hydrocodone Bitart) 1 Each Tablet 1-2 Tab PO Q4-6HRS Reported Dulcolax (Bisacodyl) 10 Mg Supp.rect 10 Mg RC PRN DAILY PRN Oxycontin (Oxycodone HCl) 10 Mg Tab.er.12h 20 Mg PO BID Eliquis (Apixaban) 5 Mg Tablet 5 Mg PO BID Ondansetron Hcl 4 Mg Tablet 1 Tab PO PRN Q6HRS PRN Oxycodone Hcl 15 Mg Tablet 15 Mg PO Q4HRS PRN Acetaminophen 500 Mg Tablet 1 Tab PO Q4HRS PRN Ativan (Lorazepam) 0.5 Mg Tablet 0.5 Mg PO TID Senokot (Sennosides) 8.6 Mg Tablet 2 Tab PO BID Lipitor (Atorvastatin Calcium) 10 Mg Tablet 1 Tab PO QHS Fleet Enema (Na Phos,M-B/Na Phos,Di-Ba) 133 Ml Enema 133 Ml RC DAILY PRN Milk Of Magnesia (Magnesium Hydroxide) 2,400 Mg/10 Ml Oral.susp 2,400 Mg PO Melatonin 3 Mg Tablet 1 Tab PO QHS Vitamin B-12 (Cyanocobalamin (Vitamin B-12)) 1,000 Mcg Tablet 1 Tab PO DAILY Hydroxyzine Hcl 25 Mg Tablet 25 Mg PO QID PRN Fosrenol (Lanthanum Carbonate) 1,000 Mg Tab.chew 1,000 Mg PO TIDAC Aspir 81 (Aspirin) 81 Mg Tablet.dr 1 Tab PO DAILY Polyethylene Glycol 3350 255 Gm Powder 17 Gm PO DAILY Protonix (Pantoprazole Sodium) 40 Mg Tablet.dr 1 Tab PO DAILY Loratadine 10 Mg Tablet 1 Tab PO DAILY Renvela (Sevelamer Carbonate) 800 Mg Tablet 1 Tab PO TID Lidocaine Hcl Viscous (Lidocaine Hcl) 20 Mg/1 Ml Solution 5 Ml PO BID Aranesp Syringe (Darbepoetin [place] In Polysorbat) 60 Mcg/0.3 Ml Disp.syrin 60 Mcg SQ WEEKLY DURAGESIC 25mcg/hr (Fentanyl) 1 Each Patch.td72 1 Patch TP Q3DAYS Gabapentin 300 Mg Capsule 300 Mg PO TID Coreg (Carvedilol) 12.5 Mg Tablet 1 Tab PO BID Coreg (Carvedilol) 6.25 Mg Tablet 1 Tab PO BID Sensipar (Cinacalcet Hcl) 30 Mg Tablet 2 Tab PO DAILY Sertraline Hcl 25 Mg Tablet 25 Mg PO DAILY Vitals/I & O Vital Sign - Last 24 Hours 09/25/16 09/25/16 09/25/16 09/25/16 11:57 15:00 19:00 20:00 Temp 97.9 97.6 97.9 97.6 Pulse 85 85 88 Resp 10 26 20 B/P (MAP) 110/69 (83) 150/82 (104) 146/89 (108) Pulse Ox 100 100 O2 Delivery Nasal Cannula Nasal Cannula Room Air Nasal Cannula O2 Flow Rate 2.0 2.0 2.0 09/25/16 09/26/16 09/26/16 09/26/16 23:00 03:05 07:00 08:00 Temp 97.5 97.9 97.4 97.5 97.9 97.4 Pulse 90 91 91 Resp 20 20 18 B/P (MAP) 140/98 (112) 142/89 (106) 162/100 (120) Pulse Ox 95 92 93 O2 Delivery Room Air Room Air Room Air Nasal Cannula O2 Flow Rate 2.0 Intake and Output 09/25/16 09/25/16 09/26/16 15:00 23:00 07:00 Intake Total 1000 ml 120 ml Output Total 0 ml 0 ml Balance 1000 ml 120 ml JESS FINE MD Sep 26, 2016 10:26
[2016-09-26] MEDS ORDERED: LORA0.5T96 PO (12:24)
[2016-09-26] MEDS ORDERED: FENT1PAT90 TP (12:24)
[2016-09-26] MEDS ORDERED: HYDR-971 PO (12:24)
--- NOTE | 2016-09-27 23:58 | DS ---
DATE OF DISCHARGE: 09/26/2016 HOSPITAL COURSE: The patient is a 61-year-old gentleman who initially presented to the Emergency Room with syncope during hemodialysis. The patient himself was unable to relay the history. He was admitted with significant leukocytosis and elevated BNP. He incidentally was found with penile glans lesion. Because of other symptoms including hypotension, he was admitted to the ICU with a septic picture. He was treated with IV fluids, did respond to this. Infectious Disease, Renal as well as pulmonary consults were obtained. His blood cultures eventually grew out Serratia marcescens for which he was started on Zosyn. Vancomycin had been added prior to identification of infectious agent. He did significantly improve and was transferred to the medical floor. Hemodialysis was continued. The patient himself was not actively participating in his health care. He did not want interventions; however, family was initially very aggressive in treatment, but with a palliative care consult, were considering hospice. However, at the time of discharge, the patient was a DNR, but was receiving antibiotic treatment with IV meropenem, which will be continued at [facility]. The patient initially was thought to have difficulty with swallowing. A swallow study was ordered, the patient, however, declined to cooperate. In discussion with family, it was decided to start him on a liquid diet. He seemed to be tolerating this fairly well without coughing or rachael aspiration. PHYSICAL EXAMINATION: VITAL SIGNS: Reveal a blood pressure of 162/100, pulse at 91, respiratory rate at 18. He is afebrile. GENERAL: This is a well-nourished 61-year-old -[place] gentleman, awake, not verbally responding to input. LUNGS: Clear anteriorly. HEART: Regular rate and rhythm. ABDOMEN: Has positive bowel sounds. EXTREMITIES: Show no edema. DISCHARGE DATE: 09/26/2016. DISCHARGE DISPOSITION: To [facility]. DISCHARGE CONDITION: Stable. DISCHARGE DIAGNOSIS: Serratia bacteremia. DISCHARGE MEDICATIONS: Please refer to MAR. DISCHARGE INSTRUCTIONS: The patient will follow up with MD at [facility]. He will return to his PCP upon discharge. HANK REYES MD DR: SOUMYA/nts JOB#: [id number] / [id number]
== END 2016-09-26 15:00 | DRG 871 ==
LOC: ER 10:40 → 2 SOUTH 13:51 → 1 WEST ICU 19:35 → 5 NORTH 09-25 18:00
PROVIDERS: ADMIT Internal Medicine; ATTEND Internal Medicine
PROC: 02HV33Z Insertion of Infusion Device into Superior Vena Cava, Percutaneous Approach (ICD-10-PCS; principal; 2016-09-22)
PROC: B548ZZA Ultrasonography of Superior Vena Cava, Guidance (ICD-10-PCS; 2016-09-22)
DX: A41.9 Sepsis, unspecified organism (principal); N18.6 End stage renal disease; G93.41 Metabolic encephalopathy; I21.4 Non-ST elevation (NSTEMI) myocardial infarction; R65.21 Severe sepsis with septic shock; I42.9 Cardiomyopathy, unspecified; I12.0 Hypertensive chronic kidney disease with stage 5 chronic kidney disease or end stage renal disease; E44.0 Moderate protein-calorie malnutrition; I48.91 Unspecified atrial fibrillation; I73.9 Peripheral vascular disease, unspecified; E83.52 Hypercalcemia; D63.1 Anemia in chronic kidney disease; B96.89 Other specified bacterial agents as the cause of diseases classified elsewhere; I86.1 Scrotal varices; E86.1 Hypovolemia; S31.20XA Unspecified open wound of penis, initial encounter; N48.29 Other inflammatory disorders of penis; Z66 Do not resuscitate; Z51.5 Encounter for palliative care; Z95.810 Presence of automatic (implantable) cardiac defibrillator; Z90.01 Acquired absence of eye; Z87.891 Personal history of nicotine dependence; Z99.2 Dependence on renal dialysis; Z79.1 Long term (current) use of non-steroidal anti-inflammatories (NSAID); Z79.899 Other long term (current) drug therapy; Z79.2 Long term (current) use of antibiotics; Z68.21 Body mass index [BMI] 21.0-21.9, adult
CPT/HCPCS: 36415; 36556; 36600; 70450; 71010; 75635; 76870; 76937; 80053; 80061; 80069; 80202; 82140; 82553; 82805; 82962; 83605; 83735; 83880; 84145; 84443; 84484; 85007; 85027; 85651; 86593; 87040; 87205; 87641; 93005; 93306; C1892; J0744; J0881; J1200; J2185; J2248; J2270; J2543; J3370; J7040; Q9967